=== PATIENT | female | born 1995 | race Caucasian/White ===

== ENCOUNTER → 2018-06-30 08:59 | Outpatient (CLI) | payer SELFPAY ==
[2018-06-30 08:58] VITALS: BMI 21.4
--- NOTE | 2018-06-30 09:03 | RAD_ITS ---
STUDY: X-RAY CHEST REASON FOR EXAM: Female, 22 years old. Bronchitis TECHNIQUE: PA and lateral views of the chest. COMPARISON: None. FINDINGS: The lungs are clear and expanded. There is no demonstrated pleural abnormality. Normal size heart. Normal mediastinum and mojgan. Normal visualized pulmonary arteries. Normal visualized aortic arch and descending thoracic aorta. Normal visualized thoracic spine. Normal visualized ribs, clavicles, and shoulders. There is no demonstrated abnormality of the visualized soft tissue structures of the upper abdomen. RAD/Chest PA and Lateral IMPRESSION: Normal x-ray examination of the chest. Electronically Signed: Emmanuel Chavez DO at 9:29 EDT Tel , Service support ,
== END ==
PROVIDERS: Family Provider Family Medicine; PCP Family Medicine; Referring Provider Physician Assistant Surgical; Visit Provider Physician Assistant Surgical
DX: J20.9 Acute bronchitis, unspecified (principal)
CPT/HCPCS: 71046

== ENCOUNTER → 2019-04-08 16:34 | Outpatient (CLI) | payer SELFPAY ==
[2019-04-08 16:17] VITALS: BMI 21.4
[2019-04-08 17:27] LABS: Absolute Neutrophil Count 5.6 X10^3/uL (2.0-7.7); Basophil# 0.04 X10^3/uL; Basophil% 0.4 % (0-1); Eosinophil# 0.34 X10^3/uL; Eosinophils% 3.6 % (0-5); Hematocrit 41.7 % (37-47); Hemoglobin 13.8 g/dL (12.0-15.0); Lymphocyte % 32.4 % (19-41); Mean Corp Hgb Conc 33.1 g/dL (32-36); Mean Corpuscular Hgb 29.5 pg (27.0-32.0); Mean Corpuscular Volume 89.1 fL (81-99); Mean Platelet Vol. 11.6 fl (6.2-12.0); Monocyte# 0.45 X10^3/uL; Monocyte% 4.7 % (0-10); NRBC Flagged by Analyzer 0 % (0-5); Neutrophil % 58.6 % (47-70); Platelet Count 210 K/mm3 (150-450); RBC Distribution Width CV 12.9 % (11.6-14.6); RBC Distribution Width SD 41.8 fl (35.1-43.9); Red Blood Count 4.68 M/mm3 (4.2-5.4); White Blood Count 9.6 K/mm3 (4.4-11.0)
== END ==
PROVIDERS: PCP Family Medicine; Referring Provider Family Medicine; Visit Provider Family Medicine
DX: K92.1 Melena (principal); R19.7 Diarrhea, unspecified
CPT/HCPCS: 36415; 85025

== ENCOUNTER → 2019-04-09 09:05 | Outpatient (CLI) | payer SELFPAY ==
[2019-04-08 16:17] VITALS: BMI 21.4
== END ==
PROVIDERS: PCP Family Medicine; Referring Provider Family Medicine; Visit Provider Family Medicine
DX: R19.7 Diarrhea, unspecified (principal)
CPT/HCPCS: 87506

== ENCOUNTER → 2020-09-05 13:59 | Outpatient (CLI) | payer SELFPAY ==
[2019-04-08 16:17] VITALS: BMI 21.4
[2020-09-05 17:00] LABS: Hematocrit 42.7 % (37-47); Hemoglobin 13.8 g/dL (12.0-15.0); Mean Corp Hgb Conc 32.3 g/dL (32-36); Mean Corpuscular Volume 89.7 fL (81-99); Platelet Count 232 K/mm3 (150-450); RBC Distribution Width CV 12.8 % (11.6-14.6); RBC Distribution Width SD 42.5 fl (35.1-43.9); Red Blood Count 4.76 M/mm3 (4.2-5.4); White Blood Count 8.9 K/mm3 (4.4-11.0)
[2020-09-05 17:11] LABS: hCG Titer Quant., Serum < 1 mIU/mL (1-3)
[2020-09-05 17:17] LABS: Estradiol 168.5 pg/mL; Follicle Stimulating Hormone 1.9 mIU/mL; Luteinizing Hormone 5.4 mIU/mL; Prolactin 16.5 ng/mL; T4 Free Direct 0.95 ng/dL (0.76-1.46); Thyroid Stim Hormone (TSH) 1.75 uIU/mL (0.358-3.74)
[2020-09-10 11:50] LABS: HPV Reflexed? NOT INDICATED
[2020-09-11 07:31] LABS: Testosterone Free 1.1 pg/mL (0.0-4.2)
== END ==
PROVIDERS: PCP Family Medicine; Visit Provider Obstetrics & Gynecology
DX: Z12.4 Encounter for screening for malignant neoplasm of cervix (principal); N93.9 Abnormal uterine and vaginal bleeding, unspecified
CPT/HCPCS: 36415; 82670; 83001; 83002; 84146; 84402; 84439; 84443; 84702; 85027; 88175; G0145

== ENCOUNTER 2021-03-02 08:21 | Day surgery (SDC) | payer OTHER, SELFPAY ==
[2021-03-02] VITALS (8 sets, daily range): BP systolic 101–125; BP diastolic 61–80; PULSE 61–92; RESP 16–18; TEMP 35.7–37.3; O2SAT 96–100; BMI 21.7
[2021-03-02] MEDS: Lactated Ringers 1,000 ML 15 ML IV (09:05)
[2021-03-02 09:11] LABS: Internal QC Validated? YES +Cl - CLEAR BKGD
[2021-03-02 09:12] LABS: Hematocrit 41.5 % (37-47); Hemoglobin 13.5 g/dL (12.0-15.0); Mean Corp Hgb Conc 32.5 g/dL (32-36); Mean Corpuscular Hgb 28.8 pg (27.0-32.0); Mean Corpuscular Volume 88.5 fL (81-99); Mean Platelet Vol. 10.8 fl (6.2-12.0); Platelet Count 204 K/mm3 (150-450); RBC Distribution Width SD 42.1 fl (35.1-43.9); Red Blood Count 4.69 M/mm3 (4.2-5.4); White Blood Count 6.1 K/mm3 (4.4-11.0)
[2021-03-02 09:13] LABS: Pregnancy, Urine Negative Negative
--- NOTE | 2021-03-02 09:26 | HP.PCM.OB_ITS ---
History and Physical Date of Admission: 03/02/21 Surgical History and Physical Date: 03/02/2021 Name: KALLI POWER Age: 25 Date of : 1995 Kalli Power, a 25 year old female 0 0 0 0 0, presents for Diagnostic laparoscopy, removal of right ovarian cyst on March 02, 2021 at . -- Kalli is here for diagnostic laparoscopy with right ovarian cystectomy on 03/02/21. MEDICATIONS HISTORY: Patient is also takin. No Meds ALLERGIES: No Known Drug Allergies Infections - mono Illnesses - none Accidents - None Hospitalizations - None Review of Systems: GENERAL - Denies fever, or chills SKIN - Denies skin changes EYES - Denies visual changes EARS - Denies difficulty hearing NOSE - Denies nasal congestion or bleeding MOUTH - Denies sore throat or difficulty swallowing NECK - Denies pain or swelling RESPIRATORY - Denies shortness of breath or wheezing CARDIOVASCULAR - Denies palpitations or chest pain GASTROINTESTINAL - Denies nausea, vomiting, diarrhea, constipation GENITOURINARY - Denies dysuria, frequency of urination, incontinence of urine MUSCULOSKELETAL - Denies joint or muscle pain NEUROLOGICAL - Denies localized numbness or weakness PSYCHIATRIC - Denies depression or anxiety ENDOCRINE - Denies heat or cold intolerance, weight loss or gain HEMATO-IMMUNOLOGIC - Denies excessive bleeding with cuts SOCIAL HISTORY: Alcohol Use - wine and RARELY Smoking - Never Diet - no special diet Exercise - active Employer - Illicit Drug Use - denies use of street drugs Sexual Activity - sexually inactive Residence - lives with parents Place of - [place] Hours Worked - 20 WK Control - Natural Family Planning and getting soon FAMILY HISTORY: MENSTRUAL HISTORY: LMP Known?- DefiniteAmount/Duration - 8-9 days, Regularity - heavy, Frequency - monthly days, LMP - 02/16/21, Age Onset Menarche - 11 PAST PREGNANCIES: Total Pregnancies - 0; Full Term Pregnancies - 0; Premature - 0; Abortions, Induced - 0; Abortions, Spontaneous - 0; Ectopics - 0; Multiple Births - 0; Living Children - 0 PHYSICAL EXAM BP- 118/68 Sitting, Left arm, regular cuff Temp- 97.9 Weight- 139.55925 lbs Height- 66 inch BMI:[id number] CONSTITUTIONAL - NAD, well nourished, and well developed SKIN - No rash, lesions, or ulcers HEENT - Normocephalic, PERRLA, EOMI NECK - No nodes, no nuchal rigidity and thyroid normal size and texture LYMPH NODES - Palpation of lymph nodes in neck and groins within normal limits ABDOMEN - Without hepatosplenomegaly, distention, masses, rebound, or guarding; normal bowel sounds; no hernias EXTREMITIES - No edema or calf tenderness NEUROLOGICAL - Cranial nerves II-XII grossly intact PSYCHIATRIC - A and O to time, place, person, mood and affect External Genital Vagina - non-tender without lesions Urethra/Urethral Meatus - non-tender Bladder - non-tender Vagina - vaginal khan are pink and moist without loss of rugae and no evidence of atrophy Cervix - without cervical motion tenderness and has normal size and features without evident lesions Uterus - 5-6 cm in size, mobile and nontender Adnexa - clear without masses or tenderness ASSESSMENT/PLAN: 1. Benign Neoplasm Of Unspecified Ovary Patient with right ovarian cyst, suspicious for dermoid 5 to 6 cm in size Educated patient on findings, risk benefits alternatives. Desires surgical removal Educated patient on teratomas, discussed risk for larger incision for removal 2. Encounter For Other Preprocedural Examination Patient for diagnostic laparoscopy, removal of right ovarian cyst Educated patient on risk benefits alternatives, discussed risk for oophorectomy, discussed risk for larger incision for removal. patient stated understanding as to proceed. All questions were answered and consent was signed Patient takes no medications. Educated on lifting restrictions and exercise after procedure
--- NOTE | 2021-03-02 09:40 | OV_PTH ---
PATIENT: JAI MORGAN LOC: [facility] U#:[id number] AGE/SX: 25/F ROOM: RE03/02/[address]: Dr. Ealdio Morgan MD : 1995 BED: DIS: 03/02/2021 SPEC #: [id number] RECD: 03/02/21 11:52 STATUS: THIERRY JOHAN #: [id number] JAD: 03/02/21 09:[address]: Eladio Morgan DEPT: SURGICAL PATHOLOGY RECD BY: Alexandra Harrison ENTERED: 03/02/21 13:34 SP TYPE: OVARY OTHR DR: Dr. Fam Solares, Tissues: Right ovary Procedures: Surgery Specimen Level V HEADER OPERATION: Diagnostic laparoscopy, ovarian cystectomy, oophorectomy PRE-OP DIAGNOSIS: Benign neoplasm of ovary TISSUE SUBMITTED: Right ovary and cyst MICROSCOPIC DIAGNOSIS Right ovary with cystic mass, oophorectomy: Mature cystic teratoma (dermoid cyst). AM:tony 03/03/2021 MICROSCOPIC DESCRIPTION Slides are reviewed. GROSS DESCRIPTION Received in fixative is one container labeled with the patient's name and designated right ovary and cyst. The specimen consists of smooth, glistening, pink-goddard cystic ovary measuring 5.5 x 4 x 2 cm and containing proteinaceous applesauce-like material and hair. The external surface is smooth and glistening. No papillary projections or excrescences are identified. The external surface is inked and the specimen serially sectioned to reveal sticky yellow substance in the lumen. The wall averages 0.2 cm in thickness. No distinct nodularities are identified. Holistic Specialist sections are submitted in four cassettes. / AM:tony 03/02/21 TC:1 [facility]: [id number]
--- NOTE | 2021-03-02 10:55 | PCM.DC ---
Discharge Instructions Diet Discharge Diet: No restrictions Activity Discharge Activity: Return to Normal Activity, May Drive, May Shower and - (No tub baths for 2 weeks) May resume sexual activity in: 4-6 weeks Lifting Restrictions: No lifting over 25 pounds for 2 to 3 weeks Dressing / Incision Call your doctor if your incision/area has: Continuous Slow Oozing and Foul Smelling Discharge Call your doctor if you observe: Fever of 101 or Higher, Shortness of breath and Chest pain Follow Up Care Please Follow Up With: Eladio Harris MD When: 2 weeks postoperatively Test Results: Test results from this visit will be discussed in further detail at your follow-up appointment, if applicable. Discharge Plan Admission Attending Provider: Eladio Harris Primary Care Provider: Fam Solares Discharge Orders/Prescriptions Prescriptions: New oxycodone 5 mg Tablet 5 mg PO Q6H PRN PRN (Reason: Pain Score 6-10/10) 4 Days Qty: 16 RF: 0 Referrals / Follow Up: Fam Solares, DO [Primary Care Provider] - Disposition Disposition (needs filled in before D/C Order can be placed): Home, Self Care
--- NOTE | 2021-03-02 10:56 | PCM.OPRPT ---
Report of Operation Date of Procedure: 03/02/21 Pre-Operative Diagnosis: Right ovarian cyst Post-Operative Diagnosis: Right ovarian cyst Surgery/Procedure Performed:: Diagnostic laparoscopy, right oophorectomy, removal of right ovarian cyst Description of Surgical Findings:: Surgeon: Eladio Harris MD Anesthesia: General EBL: 25 cc Urine output: 1000 cc IV fluids: 1100 cc Complications: None Specimen: Right ovary and right ovarian cyst Findings: Right ovary with 5 to 6 cm solid ovarian cyst that included the entire right ovary. Cystectomy could not be performed, right ovary needed to be removed. Suspicious for dermoid cyst. Left ovary within normal limits. Bilateral fallopian tubes within normal limits. Normal uterus. Consent: Patient with right ovarian cyst suspicious for dermoid elects for diagnostic laparoscopy right ovarian cystectomy. Patient understands the risk of the procedure include but are not limited to visceral or vascular injury, prolonged hospitalization, blood loss and need for transfusion, reoperation, discussed risk for oophorectomy preoperatively, discussed risks for larger incision. Patient state understanding and wished to proceed. All questions were answered and consent was signed. Procedure: Patient was brought back to the OR where general anesthesia was found to be adequate. Patient was prepared and draped in a dorsal lithotomy position with yellowfin stirrups. A weighted speculum was placed in the posterior aspect of the vagina. Cervical dilators were used to dilate the cervix. Uterine manipulator was placed. Varies needle was inserted at the umbilicus, water safety test was passed, abdomen was insufflated. 5 mm midline supraumbilical incision was made and trocar was inserted under direct visualization. Laparoscope was inserted and above findings were noted. Bilateral lower quadrant 5 mm trochars were inserted under direct visualization. Using the LigaSure device and atraumatic grasper the right fallopian tube was identified out to the fimbriae and using LigaSure device the right IP ligament was cut and cauterized. Mesosalpinx was cut and cauterized, in order to free the right fallopian tube. Right utero-ovarian ligament was cut and cauterized. 5 mm midline supraumbilical trocar was removed and incision and placement of 12 mm trocar under direct visualization was performed. Endo Catch bag was inserted, right cyst and ovary were placed into Endo Catch bag. Trocar and Endo Catch bag were removed from abdominal cavity, right ovary and right cyst were removed from abdominal cavity and sent to pathology. Good hemostasis was noted. Trochars were removed under direct visualization and abdomen was desufflated. 12 mm incision fascia was closed with 0 Vicryl in a continuous running fashion. All trocar sites skin was closed in a subcuticular fashion. Good hemostasis was noted. All counts were correct x2. Patient tolerated the procedure well and was brought to recovery in stable condition. hotel maintenance engineer: Christina Franco
[2021-03-02] MEDS: oxyCODONE 5 MG Tablet PO (12:49)
== END 2021-03-02 23:59 | disposition home or self-care (01) ==
LOC: SDC 08:32 → AC 08:34
PROVIDERS: Anesthesiology; PCP Family Medicine; Referring Provider Obstetrics & Gynecology; Visit Provider Obstetrics & Gynecology
PROC: (CPT 49320; principal; 2021-03-02 09:25)
DX: D27.0 Benign neoplasm of right ovary (principal); Z20.822 Contact with and (suspected) exposure to COVID-19
CPT/HCPCS: 58661; 00840; 81025; 85027; 87426; 88305; 88307; J7120; J2405

== ENCOUNTER → 2021-11-14 | Outpatient (CLI) | payer OTHER, SELFPAY ==
[2021-11-14 11:56] LABS: Absolute Lymphocyte Count 1.84 X10^3/uL (0.83-4.51); Absolute Neutrophil Count 7.6 X10^3/uL (2.0-7.7); Basophil# 0.03 X10^3/uL; Basophil% 0.3 % (0-1); Eosinophil# 0.19 X10^3/uL; Eosinophils% 1.8 % (0-5); Hematocrit 41.4 % (37-47); Hemoglobin 13.9 g/dL (12.0-15.0); Lymphocyte # 1.84 X10^3/ul (0.83-4.51); Lymphocyte % 17.9 % (19-41); Mean Corp Hgb Conc 33.6 g/dL (32-36); Mean Corpuscular Hgb 29.5 pg (27.0-32.0); Mean Corpuscular Volume 87.9 fL (81-99); Mean Platelet Vol. 11.3 fl (6.2-12.0); Monocyte# 0.47 X10^3/uL; Monocyte% 4.6 % (0-10); NRBC Flagged by Analyzer 0 % (0-5); Neutrophil # 7.63 X10^3/uL (2.7-7.7); Neutrophil % 74.2 % (47-70); Platelet Count 216 K/mm3 (150-450); RBC Distribution Width CV 12.7 % (11.6-14.6); RBC Distribution Width SD 41.1 fl (35.1-43.9); Red Blood Count 4.71 M/mm3 (4.2-5.4); White Blood Count 10.3 K/mm3 (4.4-11.0)
[2021-11-14 12:03] LABS: Protein, Urine (Random) < 6.0 mg/dL (<11.9); Protein:Creat Ratio 158 mg/g CRE (0-200)
[2021-11-14 12:04] LABS: AST(SGOT) 10 U/L (15-37); Alanine Aminotransfer ALT/SGPT 17 U/L (13-56); Albumin, Serum 3.7 g/dL (3.2-5.0); Alkaline Phosphatase 48 U/L (45-117); Anion Gap 8 (5-15); BUN 10 mg/dL (7-18); BUN/Creat Ratio 16.8 RATIO (10-20); Calcium,Total 8.8 mg/dL (8.5-10.1); Chloride 103 mmol/L (98-107); EST Glomerular Filtration Rate 132 mL/min (>60); Est Glom Filt Rate - Afr Amer 160 mL/min (>60); Globulin 3.8 g/dL (2.2-4.2); Glucose 71 mg/dL (74-106); LDH 140 U/L (84-246); Potassium 3.9 mmol/L (3.5-5.1); Protein, Total 7.5 g/dL (6.4-8.2); Sodium Level 139 mmol/L (136-145)
[2021-11-15 22:07] LABS: Chlamydia By Nucleic Acid AMP Negative (Negative)
[2021-11-16 08:26] LABS: Gonococcus By Nucleic Acid AMP Negative (Negative)
== END | disposition home or self-care (01) ==
LOC: WOBLAB 10:52
PROVIDERS: PCP Family Medicine; Visit Provider Obstetrics & Gynecology
DX: Z34.81 Encounter for supervision of other normal pregnancy, first trimester (principal)
CPT/HCPCS: 36415; 80053; 82570; 83615; 84156; 85025; 87086; 87088; 87491; 87591

== ENCOUNTER → 2021-12-12 | Outpatient (CLI) | payer OTHER, SELFPAY ==
[2021-12-12 11:58] LABS: HIV - WCH Non-Reactive (Nonreactive); Hepatitis B Surface Antigen Non-Reactive (Nonreactive); Hepatitis C Antibody Non-Reactive (Nonreactive); Rubella IgG Reactive (Nonreactive); Syphilis Antibodies Non-reactive
[2021-12-13 08:58] LABS: V-Zoster IgG (Immunity) < 135 index (Immune >165)
== END | disposition home or self-care (01) ==
PROVIDERS: PCP Family Medicine; Visit Provider Obstetrics & Gynecology
DX: Z34.82 Encounter for supervision of other normal pregnancy, second trimester (principal)
CPT/HCPCS: 36415; 86703; 86762; 86780; 86787; 86803; 87340

== ENCOUNTER → 2022-03-06 | Outpatient (CLI) | payer OTHER, SELFPAY ==
[2022-03-06 15:24] LABS: Absolute Lymphocyte Count 2.09 X10^3/uL (0.83-4.51); Absolute Neutrophil Count 10.3 X10^3/uL (2.0-7.7); Basophil# 0.04 X10^3/uL; Basophil% 0.3 % (0-1); Eosinophil# 0.11 X10^3/uL; Eosinophils% 0.8 % (0-5); Hematocrit 36.9 % (37-47); Hemoglobin 11.9 g/dL (12.0-15.0); Lymphocyte # 2.09 X10^3/ul (0.83-4.51); Mean Corp Hgb Conc 32.2 g/dL (32-36); Mean Corpuscular Hgb 29.5 pg (27.0-32.0); Mean Corpuscular Volume 91.6 fL (81-99); Monocyte# 0.48 X10^3/uL; Monocyte% 3.7 % (0-10); NRBC Flagged by Analyzer 0 % (0-5); Neutrophil # 10.32 X10^3/uL (2.7-7.7); Neutrophil % 78.7 % (47-70); Platelet Count 215 K/mm3 (150-450); RBC Distribution Width CV 12.9 % (11.6-14.6); RBC Distribution Width SD 42.6 fl (35.1-43.9); Red Blood Count 4.03 M/mm3 (4.2-5.4); White Blood Count 13.1 K/mm3 (4.4-11.0)
[2022-03-06 15:52] LABS: Glucose Challenge Gest 1H 50g 124 mg/dL (70-140)
== END | disposition home or self-care (01) ==
PROVIDERS: PCP Family Medicine; Visit Provider Obstetrics & Gynecology
DX: Z34.82 Encounter for supervision of other normal pregnancy, second trimester (principal)
CPT/HCPCS: 36415; 82950; 85025

== ENCOUNTER → 2022-04-16 | Outpatient (CLI) | payer OTHER, SELFPAY ==
[2022-04-16 11:21] LABS: Absolute Lymphocyte Count 1.45 X10^3/uL (0.83-4.51); Absolute Neutrophil Count 7.6 X10^3/uL (2.0-7.7); Basophil# 0.01 X10^3/uL; Basophil% 0.1 % (0-1); Eosinophil# 0.05 X10^3/uL; Eosinophils% 0.5 % (0-5); Hematocrit 34.4 % (37-47); Lymphocyte # 1.45 X10^3/ul (0.83-4.51); Lymphocyte % 15.2 % (19-41); Mean Corpuscular Hgb 29.5 pg (27.0-32.0); Mean Corpuscular Volume 92.2 fL (81-99); Mean Platelet Vol. 11.1 fl (6.2-12.0); Monocyte% 4.2 % (0-10); NRBC Flagged by Analyzer 0 % (0-5); Neutrophil # 7.59 X10^3/uL (2.7-7.7); Neutrophil % 79.3 % (47-70); Platelet Count 202 K/mm3 (150-450); RBC Distribution Width CV 12.8 % (11.6-14.6); RBC Distribution Width SD 42.7 fl (35.1-43.9); Red Blood Count 3.73 M/mm3 (4.2-5.4); White Blood Count 9.6 K/mm3 (4.4-11.0)
[2022-04-16 11:28] LABS: Protein, Urine (Random) 10.5 mg/dL (<11.9); Protein:Creat Ratio 261 mg/g CRE (0-200)
[2022-04-16 11:30] LABS: ALB/GLOB Ratio 0.7 RATIO (0.9-2.4); AST(SGOT) 11 U/L (15-37); Alanine Aminotransfer ALT/SGPT 14 U/L (13-56); Albumin, Serum 2.8 g/dL (3.2-5.0); Alkaline Phosphatase 111 U/L (45-117); Anion Gap 7 (5-15); BUN 7 mg/dL (7-18); BUN/Creat Ratio 13.3 RATIO (10-20); Calcium,Total 8.6 mg/dL (8.5-10.1); Chloride 106 mmol/L (98-107); Creatinine, Serum 0.53 mg/dL (0.55-1.02); EST Glomerular Filtration Rate 152 mL/min (>60); Est Glom Filt Rate - Afr Amer 183 mL/min (>60); Globulin 4.1 g/dL (2.2-4.2); Glucose 81 mg/dL (74-106); LDH 148 U/L (84-246); Potassium 3.9 mmol/L (3.5-5.1); Protein, Total 6.9 g/dL (6.4-8.2); Sodium Level 140 mmol/L (136-145)
== END | disposition home or self-care (01) ==
LOC: WOBLAB 10:25
PROVIDERS: PCP Family Medicine; Visit Provider Student in an Organized Health Care Education/Training Program
DX: Z34.83 Encounter for supervision of other normal pregnancy, third trimester (principal)
CPT/HCPCS: 36415; 80053; 82570; 83615; 84156; 85025; 87086; 87088

== ENCOUNTER → 2022-05-15 | Outpatient (CLI) | payer OTHER, SELFPAY ==
[2022-05-15 10:28] LABS: Absolute Lymphocyte Count 1.65 X10^3/uL (0.83-4.51); Absolute Neutrophil Count 7.6 X10^3/uL (2.0-7.7); Basophil# 0.03 X10^3/uL; Basophil% 0.3 % (0-1); Eosinophil# 0.08 X10^3/uL; Eosinophils% 0.8 % (0-5); Hematocrit 35.3 % (37-47); Hemoglobin 11.1 g/dL (12.0-15.0); Lymphocyte # 1.65 X10^3/ul (0.83-4.51); Lymphocyte % 16.7 % (19-41); Mean Corp Hgb Conc 31.4 g/dL (32-36); Mean Corpuscular Hgb 28.7 pg (27.0-32.0); Mean Corpuscular Volume 91.2 fL (81-99); Mean Platelet Vol. 11.4 fl (6.2-12.0); Monocyte# 0.44 X10^3/uL; Monocyte% 4.4 % (0-10); NRBC Flagged by Analyzer 0 % (0-5); Neutrophil # 7.62 X10^3/uL (2.7-7.7); Neutrophil % 77.1 % (47-70); Platelet Count 216 K/mm3 (150-450); RBC Distribution Width CV 13.3 % (11.6-14.6); RBC Distribution Width SD 43.8 fl (35.1-43.9); Red Blood Count 3.87 M/mm3 (4.2-5.4); White Blood Count 9.9 K/mm3 (4.4-11.0)
[2022-05-15 10:52] LABS: Syphilis Antibodies Non-reactive
== END | disposition home or self-care (01) ==
LOC: WOBLAB 09:01
PROVIDERS: PCP Family Medicine; Visit Provider Obstetrics & Gynecology
DX: Z34.83 Encounter for supervision of other normal pregnancy, third trimester (principal); Z36.85 Encounter for antenatal screening for Streptococcus B
CPT/HCPCS: 36415; 85025; 86780; 87081

== ENCOUNTER 2022-06-16 20:50 | Inpatient (IN) | payer OTHER, SELFPAY ==
[2022-06-16 20:33] VITALS: BP 137/83; PULSE 85; TEMP 36.9; O2SAT 98
[2022-06-16 20:37] VITALS: BMI 28.4
[2022-06-16] MEDS: 0.9% Saline Lock 10 ML Syringe IV (21:10)
[2022-06-16 21:32] LABS: Absolute Lymphocyte Count 2.36 X10^3/uL (0.83-4.51); Absolute Neutrophil Count 9.8 X10^3/uL (2.0-7.7); Basophil# 0.03 X10^3/uL; Basophil% 0.2 % (0-1); Eosinophil# 0.06 X10^3/uL; Eosinophils% 0.5 % (0-5); Hematocrit 35.3 % (37-47); Hemoglobin 11.9 g/dL (12.0-15.0); Lymphocyte # 2.36 X10^3/ul (0.83-4.51); Lymphocyte % 18.3 % (19-41); Mean Corp Hgb Conc 33.7 g/dL (32-36); Mean Corpuscular Hgb 29.6 pg (27.0-32.0); Mean Corpuscular Volume 87.8 fL (81-99); Mean Platelet Vol. 11.3 fl (6.2-12.0); Monocyte# 0.57 X10^3/uL; Monocyte% 4.4 % (0-10); NRBC Flagged by Analyzer 0 % (0-5); Neutrophil % 76.1 % (47-70); Platelet Count 184 K/mm3 (150-450); RBC Distribution Width CV 13.9 % (11.6-14.6); RBC Distribution Width SD 44.2 fl (35.1-43.9); Red Blood Count 4.02 M/mm3 (4.2-5.4); White Blood Count 12.9 K/mm3 (4.4-11.0)
[2022-06-16 21:46] VITALS: BP 128/85; PULSE 77; TEMP 37
[2022-06-16 22:05] LABS: Syphilis Antibodies Non-reactive
[2022-06-16 22:51] VITALS: BP 119/79; PULSE 68; PULSE 71; O2SAT 98
[2022-06-16 22:55] VITALS: TEMP 37.2
[2022-06-17] VITALS (34 sets, daily range): BP systolic 97–136; BP diastolic 55–92; PULSE 64–141; RESP 16; TEMP 36.3–37.4; O2SAT 89–100
[2022-06-17] MEDS: 0.9% Saline Lock 10 ML Syringe IV (04:35)
[2022-06-17] MEDS: Lactated Ringers 1,000 ML 50 ML IV (04:38)
[2022-06-17] MEDS: Oxytocin 15 Units/NS 250ml 15 UNITS/250 ML IV.SOLN 2 UNITS IV (04:41)
--- NOTE | 2022-06-17 08:00 | HP.PCM.OB_ITS ---
History and Physical Date of Admission: 06/16/22 HPI: 26-year-old G1, P0 at 40/5 weeks, MAURICIO 06/12/2022 by LMP, admitted for rupture of membranes. Patient had rupture membranes on Saturday at around 1600. Presented to labor and delivery with contractions. Denies vaginal bleeding. Reports movement. Denies headache or vision changes, chest pain or shortness of breath, nausea or vomiting, diarrhea constipation, fevers or chills. complicated by: Back skin lesion for which she had dermatology follow- up. 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 Right salpingectomy and ovarian cystectomy in February 2021 Medications: 1. vitamin Allergies: No known drug allergies Family history: Noncontributory, no history of blood clots or bleeding disorders Social history: Denies tobacco, alcohol, drug use Review of system: Negative otherwise stated above Physical exam: Temp 98.4 ?F, heart rate 80, blood pressure 131/84, pulse ox 97% on room air General: No acute distress HEENT: Normocephalic/atraumatic, PERRLA Cardiorespiratory: No increased effort Abdomen: Soft, nontender, gravid Extremities: Minimal edema Neurologic: Cranial nerves II through XII grossly intact, no focal sensory deficits Musculoskeletal: Moves all extremities equally Cervical exam: 3 cm per RN FHR: 130/mod stoney/+accel/no decel [place]: q3-5 Assessment/plan: 26-year-old G1, P0 at 40/5 weeks, MAURICIO 06/12/2022 by LMP, admitted for rupture of membranes. Uncomplicated . ?GBS negative ? Patient was admitted for prelabor rupture of membranes. ?Patient was monitored for 12 hours post rupture of membranes, no cervical change was noted. Labor was then augmented with Pitocin. We will continue to titrate Pitocin as tolerated.
[2022-06-17] MEDS: LACTATED RINGERS 500 ML 999 ML IV (09:16)
[2022-06-17] MEDS: fentaNYL-bupivacaine (epidural) 100 ML BAG EPIDURAL ×2 (09:45→14:09)
[2022-06-17] MEDS: Oxytocin 10 UNITS/ML Vial IM (14:45)
[2022-06-17] MEDS: Oxytocin 15 Units/NS 250ml 15 UNITS/250 ML IV.SOLN 83 UNITS IV (14:45)
--- NOTE | 2022-06-17 15:01 | EX.PCM.OBRPT ---
Maternal Data Information Final MAURICIO: 06/12/22 Vaginal Delivery Operative Information Date of Procedure: 06/17/22 Pre-Operative Diagnosis: [place] intrauterine Post-Operative Diagnosis: [place] intrauterine Surgery / Procedure Performed: Spontaneous Vaginal Delivery Estimated Blood Loss: 350cc Findings Description of Procedure: Spontaneous vaginal delivery of viable infant male. No nuchal cord. Baby to mom. Cord clamped and cut. Spontaneous delivery of placenta. Second-degree laceration repaired in usual fashion. Hemostatic. Infant A Gender: Male (1 minute): 8 (5 minute): 9 Complication Complications: None
[2022-06-17] MEDS: Ondansetron 4 MG/2 ML Vial IV (15:13)
[2022-06-17] MEDS: Acetaminophen 500 MG Tablet 1000 MG PO (16:27)
[2022-06-18 05:00] VITALS: BP 102/52; PULSE 74; RESP 16; TEMP 36.6; O2SAT 97
[2022-06-18] MEDS: Ibuprofen 600 MG Tablet PO ×2 (05:03→13:28)
--- NOTE | 2022-06-18 06:43 | PCM.DC.BLA ---
Discharge Summary Date of Admission: 06/16/22 Date of Discharge: 06/18/22 Summary: Patient arrived on 06/16/2022 with spontaneous rupture of membranes. Subsequently delivered vaginally on 06/17/2022. Discharged home on 06/18/2022. Meaningful Use Info Meaningful Use Diagnoses (Choose all that apply): None applicable Discharge Plan Admission Admit Date/Time: 06/16/22 20:50 Primary Reason for Your Visit: Spontaneous rupture membranes Attending Provider: Melissa Harris Primary Care Provider: Fam Solares Instructions Additional Instructions / Restrictions: Regular diet. Weightbearing as tolerated. No intercourse for 4 to 6 weeks. Okay to shower. Call if fevers, chills, chest pain, shortness of breath. Follow-up 4 to 6 weeks Discharge Orders/Prescriptions Prescriptions: No Action 1 mg Tablet 1 tab PO DAILY Referrals / Follow Up: Fam Solares DO [Primary Care Provider] - Disposition Disposition (needs filled in before D/C Order can be placed): Home, Self Care
--- NOTE | 2022-06-18 06:44 | PCM.PN.OB ---
Subjective Subjective No overnight complaints Objective Data Objective Data Vital Signs: Vital Signs Temp Pulse Resp BP Pulse Ox O2 Del Method 97.9 F 74 16 102/52 L 97 Room Air 06/18/22 05:00 06/18/22 05:00 06/18/22 05:00 06/18/22 05:00 06/18/22 05:00 06/18/22 05:00 Oxygen Delivery Method Room Air Weight: 181 lb 7.047 oz Body Mass Index (BMI) 28.4 Intake & Output: Intake and Output for Last 24 Hours 06/16/22 06/17/22 06/18/22 23:59 23:59 23:59 Intake Total 1438.31 / 1438.31 Output Total 850 / 850 400 / 400 Balance 588.31 / 588.31 -400 / -400 Lab / Micro Data Result Diagrams: 06/16/22 21:10 Physical Exam Const alert, oriented x3, no apparent distress, average body habitus, healthy appearing and well nourished HEENT normocephalic and moist oral mucous membranes Eyes PERRL Neck full ROM Resp normal respiratory effort, no retractions and no use of accessory muscles GI GI Narrative: Soft, nontender, uterus firm and below umbilicus Extremity normal to inspection and full ROM Neuro moves all extremities and no focal motor deficits Psych mental status grossly normal, affect normal, speech normal and activity/motor behavior normal Assessment & Plan (1) Vaginal delivery: PLAN: day 1. Breast-feeding. Pain well controlled. 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
[2022-06-18 07:50] VITALS: BP 102/65; PULSE 91; RESP 16; TEMP 36.4; O2SAT 95
[2022-06-18 13:00] VITALS: BP 101/63; PULSE 89; RESP 14; TEMP 36.4; O2SAT 97
== END 2022-06-18 16:05 | disposition home or self-care (01) | DRG 807 ==
LOC: WPOUT 20:51 → WP 20:51
PROVIDERS: Admitting Provider Student in an Organized Health Care Education/Training Program; PCP Physician Assistant; Referring Provider Student in an Organized Health Care Education/Training Program; Visit Provider Student in an Organized Health Care Education/Training Program
DX: O48.0 Post-term pregnancy (principal); Z37.0 Single live birth; O70.1 Second degree perineal laceration during delivery; Z3A.40 40 weeks gestation of pregnancy
CPT/HCPCS: 59025; 59050; 85025; 86780; 86850; 86900; 86901; 99221; J7120; A4216; G0378; J2405

== ENCOUNTER → 2024-01-06 | Outpatient (CLI) | payer OTHER, SELFPAY ==
[2024-01-07 22:06] LABS: Chlamydia By Nucleic Acid AMP Negative (Negative); Gonococcus By Nucleic Acid AMP Negative (Negative)
== END | disposition home or self-care (01) ==
LOC: LABSPEC 12:38
PROVIDERS: PCP Physician Assistant; Referring Provider Obstetrics & Gynecology; Visit Provider Obstetrics & Gynecology
DX: Z34.90 Encounter for supervision of normal pregnancy, unspecified, unspecified trimester (principal)
CPT/HCPCS: 87086; 87088; 87491; 87591

== ENCOUNTER → 2024-03-02 | Outpatient (CLI) | payer SELFPAY ==
[2024-03-02 10:50] LABS: Absolute Lymphocyte Count 1.46 X10^3/uL (0.83-4.51); Absolute Neutrophil Count 7.8 X10^3/uL (2.0-7.7); Basophil# 0.03 X10^3/uL; Basophil% 0.3 % (0-1); Eosinophil# 0.15 X10^3/uL; Eosinophils% 1.5 % (0-5); Lymphocyte # 1.46 X10^3/ul (0.83-4.51); Lymphocyte % 14.9 % (19-41); Mean Corp Hgb Conc 32.6 g/dL (32-36); Mean Corpuscular Hgb 28.9 pg (27.0-32.0); Mean Corpuscular Volume 88.7 fL (81-99); Mean Platelet Vol. 11.3 fl (6.2-12.0); Monocyte# 0.37 X10^3/uL; Monocyte% 3.8 % (0-10); NRBC Flagged by Analyzer 0 % (0-5); Neutrophil # 7.77 X10^3/uL (2.7-7.7); Platelet Count 249 K/mm3 (150-450); RBC Distribution Width CV 13.6 % (11.6-14.6); RBC Distribution Width SD 44.1 fl (35.1-43.9); Red Blood Count 4.85 M/mm3 (4.2-5.4); White Blood Count 9.8 K/mm3 (4.4-11.0)
[2024-03-02 12:10] LABS: HIV - WCH Non-Reactive (Nonreactive); Hepatitis B Surface Antigen Non-Reactive (Nonreactive); Hepatitis C Antibody Non-Reactive (Nonreactive); Rubella IgG Reactive (Nonreactive); Syphilis Antibodies Non-reactive
== END | disposition home or self-care (01) ==
PROVIDERS: Obstetrics & Gynecology; PCP Physician Assistant; Referring Provider Nurse Practitioner Women's Health; Visit Provider Nurse Practitioner Women's Health
DX: Z34.90 Encounter for supervision of normal pregnancy, unspecified, unspecified trimester (principal)
CPT/HCPCS: 36415; 85025; 86703; 86762; 86780; 86803; 86850; 86900; 86901; 87340

== ENCOUNTER → 2024-03-24 | Outpatient (CLI) | payer SELFPAY ==
--- NOTE | 2024-03-24 15:18 | US_ITS ---
PROCEDURE: OB ANATOMY W/ TRANSVAGINAL REASON FOR EXAM: Anatomy scan. COMPARISON: None. FINDINGS Number: 1 Position: Breech Placental Position: Anterior low-lying. Placental Abnormalities: None. DIMENSIONS: Biparietal Diameter: 4.6 cm/20 weeks, 0 days: 49% Head Circumference: 17.6 cm: 20 weeks: 1 day: 48%/20 weeks, 6 days: 90% Abdominal Circumference: 14.4 cm: 19 weeks: 5 days: 35%/ Femur Length: 3.2 cm: 20 weeks: 0 days: 44%/ ESTIMATED WEIGHT: ESTIMATED WEIGHT PERCENTILE (24+ weeks): ESTIMATED GESTATIONAL AGE: Baseline: 20 weeks 0 days By Ultrasound: 20 weeks 0 days: Estimated weight is 318 g plus/-48 percentile ESTIMATED DATE OF DELIVERY: Baseline: August 11, 2024 By Ultrasound: August 11, 2024 BIOPHYSICAL ASSESSMENT: Amniotic Fluid Volume: 3.9 cm Amniotic Fluid Index: Within normal limits (8-24 cm normal range) Cardiac Motion: 150 beats per minute (average) Trunk and Limb Motion: Present. MATERNAL ANATOMY: Adnexa: Neither maternal ovary is successfully identified. Cervical Length (if measured): 3.3 cm US/OB Anatomy w/ Transvaginal IMPRESSION: Single live intrauterine gestation with a mean gestational age of 20 weeks. Reading Location: [place] [id number]
== END | disposition home or self-care (01) ==
LOC: US 15:15
PROVIDERS: PCP Physician Assistant; Referring Provider Obstetrics & Gynecology; Visit Provider Obstetrics & Gynecology
DX: Z34.92 Encounter for supervision of normal pregnancy, unspecified, second trimester (principal)
CPT/HCPCS: 76805; 76817

== ENCOUNTER → 2024-05-26 | Outpatient (CLI) | payer SELFPAY ==
[2024-05-26 17:23] LABS: Absolute Lymphocyte Count 1.66 X10^3/uL (0.83-4.51); Absolute Neutrophil Count 9.3 X10^3/uL (2.0-7.7); Basophil# 0.03 X10^3/uL; Basophil% 0.3 % (0-1); Eosinophil# 0.11 X10^3/uL; Eosinophils% 0.9 % (0-5); Hematocrit 33.6 % (37-47); Hemoglobin 11.1 g/dL (12.0-15.0); Lymphocyte # 1.66 X10^3/ul (0.83-4.51); Lymphocyte % 14.3 % (19-41); Mean Corpuscular Hgb 29.8 pg (27.0-32.0); Mean Corpuscular Volume 90.3 fL (81-99); Mean Platelet Vol. 11.1 fl (6.2-12.0); Monocyte# 0.46 X10^3/uL; NRBC Flagged by Analyzer 0 % (0-5); Neutrophil # 9.31 X10^3/uL (2.7-7.7); Neutrophil % 80.1 % (47-70); Platelet Count 218 K/mm3 (150-450); RBC Distribution Width CV 13.7 % (11.6-14.6); RBC Distribution Width SD 45.1 fl (35.1-43.9); Red Blood Count 3.72 M/mm3 (4.2-5.4); White Blood Count 11.6 K/mm3 (4.4-11.0)
[2024-05-26 18:23] LABS: Glucose Challenge Gest 1H 50g 112 mg/dL (70-140); HIV Nonreactive (Nonreactive); Syphilis Antibodies Nonreactive (Nonreactive)
== END | disposition home or self-care (01) ==
LOC: BWCLAB 13:24
PROVIDERS: PCP Physician Assistant; Referring Provider Advanced Practice Midwife; Visit Provider Advanced Practice Midwife
DX: Z34.82 Encounter for supervision of other normal pregnancy, second trimester (principal)
CPT/HCPCS: 36415; 82950; 85025; 86703; 86780

== ENCOUNTER 2024-06-14 16:30 | Outpatient (CLI) | payer SELFPAY ==
[2024-06-14 16:41] VITALS: RESP 16; TEMP 37.3
[2024-06-14 16:42] VITALS: BMI 27.1
[2024-06-14 16:47] VITALS: BP 128/75; PULSE 95
[2024-06-14 17:06] LABS: Color, Urine Yellow (Yellow); Glucose, Dipstick Normal (Normal); Ketone-Dipstick 50 mg/dl (Negative); Leukocyte Esterase-Dipstick Negative /ul (Negative); Nitrite-Dipstick Negative (Negative); Occult Blood-Urine Negative /ul (Negative); Protein-Dipstick Negative (Negative); Specific Gravity, Urine 1.005 (1.002-1.030); Urine Bilirubin Dipstick Negative (Negative); Urine Clarity Clear (Clear); Urine Urobilinogen Normal (Normal)
[2024-06-14 17:28] LABS: Absolute Lymphocyte Count 1.89 X10^3/uL (0.83-4.51); Absolute Neutrophil Count 11.7 X10^3/uL (2.0-7.7); Basophil# 0.03 X10^3/uL; Basophil% 0.2 % (0-1); Eosinophils% 0.7 % (0-5); Hematocrit 31.7 % (37-47); Hemoglobin 10.9 g/dL (12.0-15.0); Lymphocyte # 1.89 X10^3/ul (0.83-4.51); Lymphocyte % 13.2 % (19-41); Mean Corp Hgb Conc 34.4 g/dL (32-36); Mean Corpuscular Volume 87.3 fL (81-99); Mean Platelet Vol. 10.7 fl (6.2-12.0); Monocyte# 0.49 X10^3/uL; Monocyte% 3.4 % (0-10); NRBC Flagged by Analyzer 0 % (0-5); Neutrophil # 11.68 X10^3/uL (2.7-7.7); Neutrophil % 81.9 % (47-70); Platelet Count 194 K/mm3 (150-450); RBC Distribution Width CV 13.5 % (11.6-14.6); RBC Distribution Width SD 42.3 fl (35.1-43.9); Red Blood Count 3.63 M/mm3 (4.2-5.4); White Blood Count 14.3 K/mm3 (4.4-11.0)
[2024-06-14] MEDS: LACTATED RINGERS 500 ML 999 ML IV (17:45)
--- NOTE | 2024-06-14 18:15 | OB.TRI.PN ---
Progress Notes Date of Service: 06/14/24 Progress Note: Patient presents for triage evaluation secondary to right sided abdominal pain FHT: 140 Moderate variability reactive no decelerations category I tracing [place]: irregular and mild Contractions Assessment and plan: urine and cbc unremarkable, but WBCs are slightly elevated from 3 weeks ago, Reactive NST, reassuring status patient to ER for evalutaiton. Dr Bro agrees with plan of care. See problem list details for additional plan information. Laboratory Studies: Laboratory Tests 06/14/24 06/14/24 Range/Units 17:20 16:50 WBC 14.3 H (4.4-11.0) K/mm3 RBC 3.63 L (4.2-5.4) M/mm3 Hgb 10.9 L (12.0-15.0) g/dL Hct 31.7 L (37-47) % MCV 87.3 (81-99) fL MCH 30.0 (27.0-32.0) pg MCHC 34.4 (32-36) g/dL RDW Std Deviation 42.3 (35.1-43.9) fl RDW Coeff of Po 13.5 (11.6-14.6) % Plt Count 194 (150-450) K/mm3 MPV 10.7 (6.2-12.0) fl Immature Gran % (Auto) 0.600 (0.0-0.9) % Neut % (Auto) 81.9 H (47-70) % Lymph % (Auto) 13.2 L (19-41) % [place] % (Auto) 3.4 (0-10) % Eos % (Auto) 0.7 (0-5) % Baso % (Auto) 0.2 (0-1) % Absolute Neuts (auto) 11.7 H (2.0-7.7) X10^3/uL Absolute Lymphs (auto) 1.89 (0.83-4.51) X10^3/uL Nucleated RBC % 0 (0-5) % Urine Color Yellow (Yellow) Urine Clarity Clear (Clear) Urine pH 7.0 (5.0 - 8.0) Ur Specific [place] 1.005 (1.002-1.030) Urine Protein Negative (Negative) mg/dl Urine Glucose (UA) Normal (Normal) mg/dl Urine Ketones 50 H (Negative) mg/dl Urine Occult Blood Negative (Negative) /ul Urine Nitrite Negative (Negative) Urine Bilirubin Negative (Negative) mg/dL Urine Urobilinogen Normal (Normal) mg/dl Ur Leukocyte Esterase Negative (Negative) /ul Charges/Coding Multi Select Codes Urinary/Genital Urinary/Genital CPT Codes: 81675-70 non-stress test Interp Assessment & Plan (1) Abdominal pain affecting : COMMENT: reactive NST. To ER for further evaluation. (2) Low lying placenta, antepartum: COMMENT: repeat US needed. did not get at 28 weeks (3) Family history of Marfan syndrome: COMMENT: Pt's brother...Pt has been tested and does NOT have (4) Supervision of normal : QUALIFIERS: Normal : other normal Trimester: third trimester Qualified Code(s): Z34.83 - Encounter for supervision of other normal , third trimester COMMENT: PRR, , MAURICIO 08/12/24, PC: Sarmad, : Adrien (5) : QUALIFIERS: Weeks of gestation: 30 weeks Qualified Code(s): Z3A.30 - 30 weeks gestation of COMMENT: Discussed genetic/carrier testing AFP - declines, nl anatomy
== END 2024-06-14 18:24 | disposition home or self-care (01) ==
LOC: WPOUT 16:35 → WP 16:35
PROVIDERS: PCP Physician Assistant; Referring Provider Advanced Practice Midwife; Visit Provider Advanced Practice Midwife
DX: O99.891 Other specified diseases and conditions complicating pregnancy (principal); R10.9 Unspecified abdominal pain; Z3A.00 Weeks of gestation of pregnancy not specified
CPT/HCPCS: 96360; 36415; 59025; 59050; 81002; 85025; 99221; G0378

== ENCOUNTER 2024-06-14 18:34 | Emergency (ER) | payer OTHER, SELFPAY ==
[2024-06-14 18:35] VITALS: BP 115/66; PULSE 104; RESP 16; TEMP 36.5; O2SAT 100; BMI 27.1
--- NOTE | 2024-06-14 18:59 | CT_ITS ---
PROCEDURE: ABDOMEN/PELVIS WITH CONTRAST 06/14/2024 REASON FOR EXAM: ABDOMINAL PAIN TECHNIQUE: Abdomen and pelvis CT with intravenous contrast. Coronal and Sagittal reconstruction series were provided. PATIENT PREPARATION: Per protocol ORAL CONTRAST TYPE: None. AMOUNT: mL CONTRAST: Isovue 370 VOLUME: 100 mL Not Provided Gauge IV One or more dose reduction techniques were used (e.g., Automated exposure control, adjustment of the mA and/or kV according to patient size, use of iterative reconstruction technique. RADIATION DOSE SUMMARY: CTDlvol: 17 mGy DLP: 977 mGycm COMPARISON: None FINDINGS: Lung bases: Mild dependent atelectasis Liver: Normal size. No mass. Gallbladder: Unremarkable Spleen: Normal size. Pancreas: Normal size without evidence of mass surrounding inflammation or ductal dilation. Adrenals: Unremarkable Kidneys: Normal renal sizes. No hydronephrosis. Bladder: Unremarkable Reproductive Organs: There is evidence of an intrauterine fetus in vertex position. The placenta is anterior. Bowel: Stomach appears grossly unremarkable. Oral contrast reaches the mid small bowel. Distal small bowel is decompressed. Focal narrowing of the mid ascending colon, best appreciated on series 6 01 image number 77, this may be secondary to peristalsis versus focal colitis. The remaining large bowel is grossly unremarkable. Appendix: The appendix is not clearly visualized. Lymph nodes: No lymphadenopathy. Vasculature: Unremarkable Peritoneum / Retroperitoneum: No free air or free fluid. Bones: Unremarkable CT/Abdomen/Pelvis WITH Contrast IMPRESSION: The appendix is not clearly visualized. No abnormal fluid collection to sugges t acute appendicitis. Focal narrowing of the mid ascending colon, this may be secondary to peristalsi s versus focal colitis. Evidence of an intrauterine fetus in the vertex position. Placenta is anterior . [facility]
--- NOTE | 2024-06-14 19:01 | EDS_ITS ---
HPI HPI - GI History of Present Illness Chief Complaint: Abd Pain Informant: patient Abdominal Pain/Flank Pain Onset: Yesterday Context: Gradual Onset Timing: Continuous Quality: Sharp Location: RLQ Worsened by: Movement and - (Bending) Relieved by: Nothing Nausea/Vomiting/Emesis GI Symptom: Positive for Nausea; Negative for Vomiting Diarrhea/Melena/Hematochezia GI Symptom: Negative for Diarrhea, Melena or Hematochezia Associated Symptoms Associated Symptoms: Negative for Dysuria, Frequency or Hematuria Narrative Narrative: Presents with right lower abdominal pain that has been getting worse since yesterday. Patient states is gradually getting worse. Patient states it has been constant. Patient describes her pain as sharp. Patient states it is mainly over the right lower abdomen. Patient states it is worse with bending and with movement. Patient admits to some nausea but denies any vomiting. Patient admits to decreased appetite. Patient denies any diarrhea, melena, or hematochezia. Patient denies any urinary complaints. Patient is 31 weeks and 5 days . Patient is 2 para 1. Patient was seen in the OB unit and had a nonstress test done which was negative. Patient had a CBC drawn there which showed a leukocytosis of 14.3. Patient also had a urinalysis there which was normal. The patient was then referred to the emergency department for possible appendicitis. [facility] Medical History Vaginal delivery Acute otitis media, left Acute frontal sinusitis, unspecified Non-smoker Pneumonia Home Medications ?Medication ?Instructions ?Recorded ?Last Taken ?Type [id number] 1 mg 1 tab PO DAILY supple ment 06/16/22 06/10/24 09:00 History tablet 1 TAB amoxicillin 875 mg-potassium 875 mg PO Q12H #20 TABLET S 06/14/24 Unknown Rx clavulanate 125 mg tablet Allergy/AdvReac Type Severity Reaction Status Date / Time No Known Allergies Allergy Verified 06/14/24 18:39 Family History Brother Heart disease Marfan syndrome Aunt Pancreatic cancer Surgical History History of gynecologic surgery Social History adopted: No household members: spouse and children number of children: 1 current occupation: [employer] current occupational exposures/hazards: No pets and animals: Yes history of recent travel: No sexually active: Yes Smoking Status: Never smoker alcohol intake: current alcohol intake frequency: holidays/special occasions only details: Not while substance use type: does not use well-balanced diet: daily or most days caffeine: Yes Type: coffee eating out: rarely or never during the past year weight has: remained stable what type of physical activity do you participate in: weight training frequency: 3-4 times per week duration: 30-45 minutes/day roderick/jehovah's witness: Spiritism seatbelt use: always do you feel safe at home: Yes additional social history: : Adrien HE ROS ED Constitutional Constitutional ED: Denies chills or fever(s) Eyes Eyes: Denies blurry vision or change in vision ENT ENT ED: Denies rhinorrhea or sore throat Cardiovascular Cardiovascular: Denies chest pain or palpitations Respiratory/Chest Respiratory/Chest: Denies cough or dyspnea Gastrointestinal Gastrointestinal: Reports abdominal pain and nausea; Denies vomiting Genitourinary Genitourinary ED: Denies dysuria or hematuria Musculoskeletal Musculoskeletal: Denies back pain or neck pain Integumentary Denies abscess or rash Neurologic Neurologic: Denies headache(s) or weakness Allergic/Immunologic Allergic/Immunologic ED: Denies mouth swelling or urticaria EXAM Physical Exam Const Vital Signs: 06/14/24 18:35 06/14/24 20:34 06/14/24 22:00 Temperature 97.7 F L Temperature Source Temporal Pulse Rate 104 H 105 H 100 Respiratory Rate 16 18 18 Blood Pressure 115/66 107/69 116/68 Blood Pressure Mean 82 81 84 Pulse Ox 100 97 97 Oxygen Delivery Method Room Air Room Air Room Air Positive well nourished and well developed General Appearance ED: well developed and NAD HEENT Reports moist mucous membranes Neck supple and no JVD Resp normal respiratory effort and clear to auscultation bilaterally Cardio regular rate and regular rhythm GI non-distended Auscultation: normoactive bowel sounds Palpation: soft Neuro CN's II-XII intact bilaterally, moves all extremities and no sensory deficits noted Sensorium / Orientation: alert Motor Exam: strength 5/5 throughout Psych mental status grossly normal MDM MDM MDM Narrative Medical decision making narrative: Differential diagnosis is appendicitis, round ligament pain, ovarian cyst, colitis, ureteral calculus, and pyelonephritis. Comprehensive metabolic profile will be obtained to assess for hepatic function, renal function, and electrolyte abnormality. CT scan of the abdomen and pelvis will be obtained to assess for appendicitis, colitis, and pyelonephritis. History & Record Review Additional record(s) reviewed:: Prior outpatient record and Prior labs Lab Data Attestation: I reviewed the patient's lab results. Lab results narrative: Comprehensive metabolic profile was reviewed and was essentially within normal limits. Labs: Laboratory Results - last 24 hr 06/14/24 19:15 Sodium 138 Potassium 3.6 Chloride 105 Carbon Dioxide 20.5 L Anion Gap 13 BUN 5 Creatinine 0.45 L Estim Creat Clear Calc 204.41 Est GFR (MDRD) Non-Af 136 BUN/Creatinine Ratio 11.4 Glucose 84 Calcium 8.7 Total Bilirubin 0.31 AST 16 ALT 11 Alkaline Phosphatase 76 Total Protein 6.6 Albumin 3.6 Globulin 2.9 Albumin/Globulin Ratio 1.2 Radiography Diagnostic Testing: Clinical Impression(s) from Imaging Studies Abdomen/Pelvis CT 06/14/24 18:59 IMPRESSION: The appendix is not clearly visualized. No abnormal fluid collection to suggest acute appendicitis. Focal narrowing of the mid ascending colon, this may be secondary to peristalsis versus focal colitis. Evidence of an intrauterine fetus in the vertex position. Placenta is anterior. Reading Location: [facility] CT scan of the abdomen pelvis was obtained. The appendix is not clearly visualized. There is no abnormal fluid collection to suggest acute appendicitis. There is some focal narrowing of the mid ascending colon which may be secondary to peristalsis versus focal colitis. This was interpreted by the radiologist and was also independently reviewed by myself. Treatment and Re-Evaluation :: Patient was given IV fluids, morphine, and Zofran. Patient was given a repeat dose of morphine. Patient was advised of her findings. Case was discussed with Dr. Lali Bob. She agrees with antibiotic treatment with Augmentin. Patient was given her first dose here. Patient was instructed to follow-up in 2 to 3 days. Patient was instructed to return if worse in any way. Patient and spouse understood and were agreeable with the plan. All questions were answered. Discharge Plan Triage Chief Complaint: Abd Pain ED Provider: Benjamin Greenwood Dx/Rx/DC Orders Clinical Impression: Colitis, Instructions: ED Understanding Colitis Prescriptions: New amoxicillin-pot clavulanate 875-125 mg tablet 875 mg PO Q12H Qty: 20 0RF No Action 1 mg Tablet 1 tab PO DAILY Primary Care Provider: Madisyn Torres Referrals: Lali Bob MD [Med Staff - Active Staff] - 3-5 Days Madisyn Torres PA [Primary Care Provider] - 3-5 Days Print Language: Ugandan Disposition Disposition: Home, Self Care
[2024-06-14] MEDS: Morphine 4 MG/ML Syringe IV ×2 (19:12→21:24)
[2024-06-14] MEDS: 0.9% Normal Saline (1000mL) 1,000 ML 999 ML IV (19:12)
[2024-06-14] MEDS: Ondansetron 4 MG/2 ML Vial IV (19:12)
[2024-06-14 19:40] LABS: ALB/GLOB Ratio 1.2 RATIO (0.9-2.4); AST(SGOT) 16 U/L (<=31); Alanine Aminotransfer ALT/SGPT 11 U/L (<=34); Albumin, Serum 3.6 g/dL (3.5-5.0); Alkaline Phosphatase 76 U/L (35-104); Anion Gap 13 (5-15); BUN 5 mg/dL (4-19); BUN/Creat Ratio 11.4 RATIO (10-20); Calcium,Total 8.7 mg/dL (7.6-11.0); Carbon Dioxide 20.5 mmol/L (21.0-32.0); Chloride 105 mmol/L (98-108); Creatinine, Serum 0.45 mg/dL (0.70-1.20); EST Glomerular Filtration Rate 136 (>60); Estimated Creatinine Clearance 204.41 ml/min (50-250); Globulin 2.9 g/dL (2.2-4.2); Glucose 84 mg/dL (70-99); Potassium 3.6 mmol/L (3.3-5.1); Protein, Total 6.6 g/dL (5.9-8.4); Sodium Level 138 mmol/L (133-145); Total Bilirubin 0.31 mg/dL (0.00-1.30)
[2024-06-14 20:34] VITALS: BP 107/69; PULSE 105; RESP 18; O2SAT 97
[2024-06-14 22:00] VITALS: BP 116/68; PULSE 100; RESP 18; O2SAT 97
[2024-06-14 22:27] VITALS: BP 109/62; PULSE 105; RESP 16; TEMP 36.5; O2SAT 96
[2024-06-14] MEDS: Amox/Clavulanate 875 MG Tablet PO (22:30)
== END 2024-06-14 22:35 | disposition home or self-care (01) ==
PROVIDERS: Emergency Provider Emergency Medicine; PCP Physician Assistant; Visit Provider Emergency Medicine
DX: O99.613 Diseases of the digestive system complicating pregnancy, third trimester (principal); K52.9 Noninfective gastroenteritis and colitis, unspecified; Z3A.31 31 weeks gestation of pregnancy
CPT/HCPCS: 74177; 80053; 96361; 96374; 96375; 96376; 99282; Q9967; A4216; J2405

== ENCOUNTER 2024-06-15 18:39 | Emergency (ER) | payer SELFPAY ==
[2024-06-15 18:40] VITALS: BP 121/83; PULSE 132; RESP 18; TEMP 36.8; O2SAT 100; BMI 26.9
[2024-06-15 18:42] VITALS: BP 121/83; PULSE 130; RESP 18; TEMP 36.8; O2SAT 98
--- NOTE | 2024-06-15 18:45 | EDS_ITS ---
HPI History of Present Illness Chief Complaint: Abd Pain [facility] Medical History Vaginal delivery Acute otitis media, left Acute frontal sinusitis, unspecified Non-smoker Pneumonia Home Medications ?Medication ?Instructions ?Recorded ?Last Taken ?Type nmegmpsk-hjo-[id number]-FA 1 mg 1 tab PO DAILY supple ment 06/16/22 06/10/24 09:00 History tablet 1 TAB amoxicillin 875 mg-potassium 875 mg PO Q12H #20 TABLET S 06/14/24 Unknown Rx clavulanate 125 mg tablet Allergy/AdvReac Type Severity Reaction Status Date / Time No Known Allergies Allergy Verified 06/15/24 18:39 Family History Brother Heart disease Marfan syndrome Aunt Pancreatic cancer Surgical History History of gynecologic surgery Social History adopted: No household members: spouse and children number of children: 1 current occupation: [employer] current occupational exposures/hazards: No pets and animals: Yes history of recent travel: No sexually active: Yes Smoking Status: Never smoker alcohol intake: current alcohol intake frequency: holidays/special occasions only details: Not while substance use type: does not use well-balanced diet: daily or most days caffeine: Yes Type: coffee eating out: rarely or never during the past year weight has: remained stable what type of physical activity do you participate in: weight training frequency: 3-4 times per week duration: 30-45 minutes/day roderick/moravian: Hoahaoism seatbelt use: always do you feel safe at home: Yes additional social history: : Adrien [employer] EXAM Physical Exam Const Vital Signs: 06/15/24 18:40 06/15/24 18:42 06/15/24 19:20 Temperature 98.2 F 98.2 F Temperature Source Oral Oral Pulse Rate 132 H 130 H 109 H Respiratory Rate 18 18 18 Blood Pressure 121/83 H 121/83 H Blood Pressure Mean 95 95 Pulse Ox 100 98 96 Oxygen Delivery Method Room Air Room Air Room Air MDM MDM MDM Narrative Medical decision making narrative: HISTORY OF PRESENT ILLNESS: Chief complaint: Abdominal pain 28-year-old female presents with abdominal pain. Notes ongoing abdominal pain. No recent diagnosed with colitis. Notes right side abdominal pain. No fever. No change in bowel or bladder habit. No history of abdominal surgeries. No she is a G2, P1. She is approximately 32 weeks gestation. No trouble urinating. No flank pain. REVIEW OF SYSTEMS: Pertinent positives: Abdominal pain Pertinent negatives: Trouble urinating PHYSICAL EXAM: Nursing triage notes reviewed, Vital signs reviewed Constitutional: please see mdm HENT: MMM Eyes: Pupils equal round and reactive to light, Extraocular muscles intact Neck: No stridor, no JVD, full neck ROM Lungs: Clear to auscultation, No wheezing or rales. No increased work of breathing, no conversational dyspnea, no accessory muscle use, no nasal flaring. No respiratory distress noted Heart: Regular rate and rhythm, No murmurs, No rubs and No gallops, 2+ distal pulses (radial, femoral, posterior tibial) in all extremities Abdomen: Diffusely tender along the right upper and lower quadrant. Soft,, gravid uterus, no obvious rigidity, rebound. There is voluntary guarding, no palpable pulsatile abdominal masses, no auscultated abdominal bruit : No CVAT Extremities: No edema Neuro: No new focal neurological deficits, cranial nerves II through XII intact, 5/5 strength in all present extremities. Intact sensation to light touch in all present extremities, 2+ reflexes bilateral patella tendons. Skin: No rash or lesions noted MEDICAL DECISION MAKING: Chief Complaint: please see HPI External records reviewed: Reviewed imaging studies: Reviewed CT scan of the abdomen pelvis with contrast from yesterday (06/14/2024) showed signs of colitis, it stated the appendix is not clearly visualized. There is no abnormal fluid collection to suggest appendicitis however. Reviewed labs from yesterday. CBC showed leukocytosis suggestive of systemic systemic inflammation, mild anemia. Chemistries showed no evidence of metabolic acidosis or endorgan hypoperfusion, urinalysis negative Factors affecting care: none Social determinants of health: none History obtained from others: Consults: ON SITE CONSTRUCTION SUPERINTENDENT (Dr. Delvalle)?recommended MRI without contrast and lab [facility] Narrative: The patient was initially tachycardic otherwise afebrile and nontoxic-appearing. Exam with significantly tender right upper and lower quadrant. No obvious peritoneal signs but there was some voluntary guarding. I considered the following differential diagnosis: Colitis, acute appendicitis, nephrolithiasis, UTI, pyelonephritis ALL IMAGES (IF OBTAINED) HAVE BEEN PERSONALLY REVIEWED AND INTERPRETED BY MYSELF. Lactate is wnl indicating no end-organ hypoperfusion and/or hypoxia. CBC shows uptrending leukocytosis concerning for systemic inflammation, noted mild anemia, no thrombocytopenia CMP without evidence of metabolic acidosis or endorgan hypoperfusion, normal electrolytes, no acute kidney injury, no signs of hepatobiliary pathology Urinalysis with evidence of ketonuria as well as urinary phonation as well as bacteria MRI of the abdomen [] The patient and/or family, caregivers express understanding. The patient and/or family, caregivers agrees with the plan. Shared decision making: I will have a discussion with the patient and or visitors regarding risk/benefits of further testing or admission. They will be made aware of of the risk/benefits inherent in this decision they will be given the opportunity to voice understanding. Total critical care time today provided was at least 0 minutes. This excludes separately billable procedures. Critical care time (if documented) is secondary to the patient having high probability of clinically significant/life threatening deterioration in the patient's condition which required my urgent intervention. Impression: 1. Acute abdominal pain 2. Third trimester Dispo: [] This note was generated with [employer] dictation software. It may contain incorrect words, spelling, and punctuation that were not noted in review of the chart prior to signing. Lab Data Labs: Laboratory Results - last 24 hr 06/15/24 06/15/24 19:15 19:21 WBC 15.6 H RBC 3.76 L Hgb 11.2 L Hct 33.0 L MCV 87.8 MCH 29.8 MCHC 33.9 RDW Std Deviation 43.8 RDW Coeff of Po 13.6 Plt Count 216 MPV 10.6 Immature Gran % (Auto) 0.600 Neut % (Auto) 82.7 H Lymph % (Auto) 10.9 L [place] % (Auto) 4.9 Eos % (Auto) 0.7 Baso % (Auto) 0.2 Absolute Neuts (auto) 12.9 H Absolute Lymphs (auto) 1.71 Nucleated RBC % 0 Sodium 137 Potassium 3.8 Chloride 104 Carbon Dioxide 22.3 Anion Gap 11 BUN 4 Creatinine 0.52 L Estim Creat Clear Calc 176.43 Est GFR (MDRD) Non-Af 132 BUN/Creatinine Ratio 8.5 L Glucose 111 H Lactic Acid < 1.0 Calcium 8.5 Total Bilirubin 0.35 AST 18 ALT 11 Alkaline Phosphatase 80 Total Protein 6.8 Albumin 3.7 Globulin 3.1 Albumin/Globulin Ratio 1.2 Urine Color Yellow Urine Clarity Cloudy Urine pH 6.0 Ur Specific [place] 1.015 Urine Protein 30 H Urine Glucose (UA) Normal Urine Ketones 150 A* Urine Occult Blood Negative Urine Nitrite Negative Urine Bilirubin Negative Urine Urobilinogen Normal Ur Leukocyte Esterase 500 H Urine RBC 0 SEEN Urine WBC 25-50 SEEN Ur Squamous Epith Cells 25-50 SEEN Urine Bacteria 2+ Urine Mucus 0 SEEN Discharge Plan Triage Chief Complaint: Abd Pain ED Provider: Hugo Stiles Dx/Rx/DC Orders Prescriptions: No Action 1 mg Tablet 1 tab PO DAILY amoxicillin-pot clavulanate 875-125 mg tablet 875 mg PO Q12H Qty: 20 0RF Primary Care Provider: Madisyn Torres Referrals: Madisyn Torres PA [Primary Care Provider] - Print Language: Citizen Of [place]
[2024-06-15] MEDS: Acetaminophen 500 MG Tablet 1000 MG PO (19:18)
[2024-06-15] MEDS: 0.9% Normal Saline (1000mL) 1,000 ML 999 ML IV (19:18)
[2024-06-15 19:19] LABS: Mucous, Urine 0 SEEN /hpf (<or=2+); Red Blood Cells-Urine 0 SEEN /hpf (0-5)
[2024-06-15 19:20] VITALS: PULSE 109; RESP 18; O2SAT 96
--- NOTE | 2024-06-15 19:33 | MRI_ITS ---
PROCEDURE: Pelvis WITHOUT CONTRAST 06/15/2024 REASON FOR EXAM: RIGHT SIDED ABDOMINAL PAIN TECHNIQUE: MRI of the pelvis without and with intravenous gadolinium-based contrast. Multiplanar and multisequence images were obtained. FINDINGS: Peritoneum / Retroperitoneum: Enlarged gravid uterus. Prominent appendix with edematous wall and some stranding of the surrounding fat worrisome for acute appendicitis. No loculated fluid collection to suggest abscess. Lymph Nodes: Unremarkable. Major Vessels: Normal abdominal aorta and inferior vena cava. . Bones: Unremarkable. MRI/Abdomen without Contrast IMPRESSION: Acute appendicitis without abscess. Dr. Stiles was notified on 06/15/2024 at 2100. Reading Location: [id number]
[2024-06-15 19:41] LABS: Absolute Lymphocyte Count 1.71 X10^3/uL (0.83-4.51); Absolute Neutrophil Count 12.9 X10^3/uL (2.0-7.7); Basophil# 0.03 X10^3/uL; Basophil% 0.2 % (0-1); Eosinophil# 0.11 X10^3/uL; Eosinophils% 0.7 % (0-5); Hemoglobin 11.2 g/dL (12.0-15.0); Lymphocyte # 1.71 X10^3/ul (0.83-4.51); Lymphocyte % 10.9 % (19-41); Mean Corp Hgb Conc 33.9 g/dL (32-36); Mean Corpuscular Hgb 29.8 pg (27.0-32.0); Mean Corpuscular Volume 87.8 fL (81-99); Mean Platelet Vol. 10.6 fl (6.2-12.0); Monocyte# 0.76 X10^3/uL; Monocyte% 4.9 % (0-10); NRBC Flagged by Analyzer 0 % (0-5); Neutrophil # 12.92 X10^3/uL (2.7-7.7); Neutrophil % 82.7 % (47-70); Platelet Count 216 K/mm3 (150-450); RBC Distribution Width CV 13.6 % (11.6-14.6); RBC Distribution Width SD 43.8 fl (35.1-43.9); Red Blood Count 3.76 M/mm3 (4.2-5.4); White Blood Count 15.6 K/mm3 (4.4-11.0)
[2024-06-15 19:46] LABS: Color, Urine Yellow (Yellow); Glucose, Dipstick Normal (Normal); Leukocyte Esterase-Dipstick 500 /ul (Negative); Nitrite-Dipstick Negative (Negative); Occult Blood-Urine Negative /ul (Negative); Protein-Dipstick 30 mg/dl (Negative); Specific Gravity, Urine 1.015 (1.002-1.030); Urine Bilirubin Dipstick Negative (Negative); Urine Clarity Cloudy (Clear); Urine Urobilinogen Normal (Normal)
[2024-06-15 19:54] LABS: Ketone-Dipstick 150 mg/dl (Negative)
[2024-06-15 20:00] LABS: Lactic Acid < 1.0 mmol/L (0.0-2.0)
[2024-06-15 20:10] LABS: ALB/GLOB Ratio 1.2 RATIO (0.9-2.4); AST(SGOT) 18 U/L (<=31); Alanine Aminotransfer ALT/SGPT 11 U/L (<=34); Albumin, Serum 3.7 g/dL (3.5-5.0); Alkaline Phosphatase 80 U/L (35-104); Anion Gap 11 (5-15); BUN 4 mg/dL (4-19); BUN/Creat Ratio 8.5 RATIO (10-20); Calcium,Total 8.5 mg/dL (7.6-11.0); Carbon Dioxide 22.3 mmol/L (21.0-32.0); Chloride 104 mmol/L (98-108); Creatinine, Serum 0.52 mg/dL (0.70-1.20); EST Glomerular Filtration Rate 132 (>60); Estimated Creatinine Clearance 176.43 ml/min (50-250); Globulin 3.1 g/dL (2.2-4.2); Glucose 111 mg/dL (70-99); Potassium 3.8 mmol/L (3.3-5.1); Protein, Total 6.8 g/dL (5.9-8.4); Sodium Level 137 mmol/L (133-145); Total Bilirubin 0.35 mg/dL (0.00-1.30)
[2024-06-15 20:13] LABS: Squamous Epithelial Cells - UA 25-50 SEEN /hpf (5-10)
[2024-06-15 20:14] LABS: White Blood Cells 25-50 SEEN /hpf (0-5)
[2024-06-15 20:15] LABS: Bacteria 2+ /hpf (None Seen)
[2024-06-15 20:44] VITALS: BP 122/71; PULSE 104; RESP 14; TEMP 36.9; O2SAT 97
[2024-06-15] MEDS: Morphine 2 MG/ML Syringe IV (21:12)
[2024-06-15] MEDS: Piperacil/Tazobactam 3.375 GM in 0.9% Normal Saline (50mL MB+) 50 ML IV (21:13)
[2024-06-15 22:00] VITALS: BP 122/75; PULSE 106; RESP 19; TEMP 37.1; O2SAT 98
[2024-06-15] MEDS: HYDROmorphone 0.5 MG/0.5 ML SYRINGE IV (22:22)
[2024-06-15 22:44] VITALS: BP 122/75; PULSE 106; RESP 15; TEMP 37.1; O2SAT 98
--- NOTE | 2024-06-15 22:45 | ED.RN ---
This RN called report to OB Triage at [facility]
== END 2024-06-15 22:47 | disposition short-term general hospital (02) ==
PROVIDERS: Emergency Provider Emergency Medicine; PCP Physician Assistant; Visit Provider Emergency Medicine
DX: O26.893 Other specified pregnancy related conditions, third trimester (principal); K35.80 Unspecified acute appendicitis; O99.613 Diseases of the digestive system complicating pregnancy, third trimester; O99.113 Other diseases of the blood and blood-forming organs and certain disorders involving the immune mechanism complicating pregnancy, third trimester; R10.9 Unspecified abdominal pain; D72.829 Elevated white blood cell count, unspecified; Z3A.32 32 weeks gestation of pregnancy
CPT/HCPCS: 74181; 80053; 81001; 83605; 85025; 96361; 96365; 96375; 99284; A4216

== ENCOUNTER → 2024-07-01 | Outpatient (CLI) | payer SELFPAY ==
--- NOTE | 2024-07-01 11:45 | US_ITS ---
PROCEDURE: OB LIMITED WITH BIOMETRICS 07/01/2024 REASON FOR EXAM: PLACENTAL LOCATION AND GROWTH TECHNIQUE: High resolution obstetric ultrasound performed using a 2D transducer. Standard views obtained, including biometry, anatomy survey, and Doppler studies. FINDINGS Transabdominal and transvaginal imaging Single live intrauterine cardiac activity 143 beats per minute. Presentation is cephalic. Cervical length 3.5 cm and appears closed. DENISE 18.3 cm Right lateral placenta appears within limits, not low-lying, grade 2 DIMENSIONS: Biparietal Diameter: 8.71 cm/35 weeks 1 day, 79% Head Circumference: 33.09 cm/37 weeks 5 days, 94% Abdominal Circumference: 32.44 cm/36 weeks 2 days, 97% Femur Length: 6.46 cm/33 weeks 2 days, 23% FL/AC 19.90% (20.00 24.00%) FL/BPD 74%, FL/HC 20%, CI 73%, HC/AC 1.02 ESTIMATED WEIGHT: 2681 g +/-402 g, 83% ESTIMATED WEIGHT PERCENTILE (24+ weeks): 83% Estimated age by current ultrasound 35 weeks 6 days, MAURICIO 07/30/2024 age by prior ultrasound 34 weeks 1 day, MAURICIO 08/11/2024 age by LMP 34 weeks 0 days, MAURICIO 08/12/2024 US/OB Limited With Biometrics IMPRESSION: FL/AC 19.90% (20.00 24.00%) . Single live intrauterine with b iometry as above. Reading Location: [id number]
== END | disposition home or self-care (01) ==
PROVIDERS: PCP Physician Assistant; Referring Provider Advanced Practice Midwife; Visit Provider Advanced Practice Midwife
DX: O44.43 Low lying placenta NOS or without hemorrhage, third trimester (principal); Z3A.00 Weeks of gestation of pregnancy not specified
CPT/HCPCS: 76816

== ENCOUNTER → 2024-07-07 | Outpatient (CLI) | payer SELFPAY | END | disposition home or self-care (01) | LOC: LABSPEC 11:13 | PROVIDERS: PCP Physician Assistant; Referring Provider Obstetrics & Gynecology; Visit Provider Obstetrics & Gynecology | DX: T81.321A Disruption or dehiscence of closure of internal operation (surgical) wound of abdominal wall muscle or fascia, initial encounter (principal) | CPT/HCPCS: 87070; 87077; 87186; 87205 ==

== ENCOUNTER → 2024-07-21 | Outpatient (CLI) | payer OTHER, SELFPAY | END | disposition home or self-care (01) | LOC: LABSPEC 14:59 | PROVIDERS: PCP Physician Assistant; Referring Provider Advanced Practice Midwife; Visit Provider Advanced Practice Midwife | DX: Z34.83 Encounter for supervision of other normal pregnancy, third trimester (principal) | CPT/HCPCS: 87081 ==

== ENCOUNTER 2024-08-10 16:10 | Inpatient (IN) | payer SELFPAY, OTHER ==
[2024-08-10] VITALS (53 sets, daily range): BP systolic 102–140; BP diastolic 56–86; PULSE 85–126; RESP 12–16; TEMP 36.6–37.1; O2SAT 92–100; BMI 28.2
--- OUTSIDE RECORDS SUMMARY | 2024-08-10 00:59 | XMS RPT_ITS | CCD ---
Author Organization [facility] Care Team Providers Care Vision Care Associate Name Role Phone HAYLEY ANDERSON Admitting Unavailable HAYLEY ANDERSON Attending Unavailable HAYLEY ANDERSON Primary Care Unavailable Madisyn Thrasher Primary Care Provider Madisyn Thrasher Referring Provider Dr. Lali Bro MD Attending Provider [phone] Emely Haque Attending Provider Paolo GLASSCEmely Referring Provider Dr. Lali Bro MD Referring Provider Tova Prather CNM Attending Provider Tova Prathre CNM Referring Provider Madisyn Thrasher Primary Care Provider Madisyn Thrasher Referring Provider Dr. Lali Bro MD Attending Provider [phone] Dr. Leonela Montejo DO Attending Provider Tova Prather CNM Other Provider Dr. Benjamin Greenwood DO Emergency Provider Unavailable Primary Care Provider UnavailSHAWN Anthony Consulting Unavailable OZZIE AGUIRRE Attending Unavailable OZZIE AGUIRRE Admitting Unavailable Madisyn Thrasher Primary Care Provider Madisyn Thrasher Referring Provider Emely Haque Attending Provider Dr. Benjamin Greenwood DO Attending Provider [phone] Hugo Stiles DO Attending Provider Dr. Hugo Stiles DO Emergency Provider Torres PA, Madisyn Primary Care Provider Torres PA, Madisyn Referring Provider Paolo RU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-CEmely Attending Provider Paulino ARZATE, Dr. Escalera Attending Provider Dr. Lali Bro MD Referring Provider Torres PA, Madisyn Referring Unavailable Torres PA, Madisyn Primary Care Unavailable Lali Bro Attending Unavailable Torres PA, Madisyn Primary Care Unavailable Susan Somers Attending Unavailable Torres PA, Madisyn Primary Care Unavailable Torres PA, Madisyn Referring Unavailable Tova Prather Attending Unavailable Torres PA, Madisyn Primary Care Unavailable Torres PA, Madisyn Referring Unavailable Tova Prather Attending Unavailable Torres PA, Madisyn Primary Care Unavailable Tova Prather Referring Unavailable Tova Prather Attending Unavailable Torres PA, Madisyn Primary Care Unavailable VeldeLeonela Referring Unavailabl e Velde, Leonela Bee Attending Unavailabl e Torres PA, Madisyn Referring Unavailable [place] RU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, Emely Attending Unavailable Torres PA, Madisyn Primary Care Unavailable Torres PA, Madisyn Referring Unavailable Lali Bro Attending Unavailable Torres PA, Madisyn Primary Care Unavailable Torres PA, Madisyn Primary Care Unavailable Torres PA, Madisyn Referring Unavailable VelLeonela mueller Attending Unavailabl e Torres PA, Madisyn Primary Care Unavailable Tova Prather Referring Unavailable Tova Prather Attending Unavailable Torres PA, Madisyn Primary Care Unavailable Tova Prather Attending Unavailable Crescencio Tova Referring Unavailable Torres PA, Madisyn Primary Care Unavailable Lali Bro Attending Unavailable Lali Bro Admitting Unavailable [place] RU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 Emely Referring Unavailable Paolo RU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, Emely Attending Unavailable Torres PA, Madisyn Primary Care Unavailable Torres PA, Madisyn Primary Care Unavailable Tova Prather Referring Unavailable Tova Prather Attending Unavailable Torres PA, Madisyn Referring Unavailable [place] RU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, Emely Attending Unavailable Torres PA, Madisyn Primary Care Unavailable Torres PA, Madisyn Referring Unavailable Torres PA, Madisyn Primary Care Unavailable Tova Prather Attending Unavailable Torres PA, Madisyn Referring Unavailable Leonela Antoine Attending Unavailabl e Torres PA, Madisyn Primary Care Unavailable Torres PA, Madisyn Primary Care Unavailable Tova Prather Attending Unavailable Tova Prather Consulting Unavailable Tova Prather Referring Unavailable Torres PA, Madisyn Primary Care Unavailable Torres PA, Madisyn Referring Unavailable Leonela Antoine Attending Unavailabl e Torres PA, Madisyn Primary Care Unavailable Lali Bro Referring Unavailable MarcanthonyLali Attending Unavailable Torres PA, Madisyn Primary Care Unavailable Marcanthony, Lali Referring Unavailable Marcanthony, Lali Attending Unavailable Torres PA, Madisyn Primary Care Unavailable Tova Prather Attending Unavailable Torres PA, Madisyn Referring Unavailable Emely Boone NP Attending Unavailable Torres PA, Madisyn Primary Care Unavailable Torres PA, Madisyn Referring Unavailable Marcanthony, Lali Referring Unavailable Torres PA, Madisyn Primary Care Unavailable Lali Bro Attending Unavailable Benjamin Greenwood Attending Unavailable Torres PA, Madisyn Primary Care Unavailable Torres PA, Madisyn Primary Care Unavailable Hugo Stiles Attending Unavailable Medications Current Medications Medication Drug Class(es) Dates Sig (Normalized) Sig (Original) acetaminophen 500 mg oral tablet (4 sources) Start: 06-17-2024 End: 06-27-2024 take 1 tablet by mouth every six hours as needed for pain acetaminophen (Tylenol Extra Strength) 500 MG tablet Take 1 tablet (500 mg) by mouth every 6 hours as needed for mild pain (1-3) for up to 10 days. 30 tablet 06/17/2024 06/27/2024 Active Start: 06-16-2024 End: 06-17-2024 take 1 tablet by mouth every six hours 650 mg, Oral, Every 6 hours, First dose (after last modification) on Sat06/16/24 at 0330, Maximum dose of acetaminophen is 4000 mg from all sources in 24 hours. docusate sodium 100 mg oral capsule (2 sources) Start: 06-17-2024 End: 06-27-2024 take 1 capsule by mouth twice daily as needed for constipation docusate sodium (Colace) 100 MG capsule Take 1 capsule (100 mg) by mouth 2 times daily as needed for constipation for up to 10 days. 20 capsule 06/17/2024 06/27/2024 Active Nebueqln-Vzy-Vw-Fa () 1 mg Tablet (9 sources) Start: 06-16-2022 take 1 tablet by lm th once daily Jlnonnty-Ozl-Fb-Fa () 1 mg Tablet Active 1 {tbl} PO DAILY June 16, 2022 12:00am Completed/Discontinued Medications Medication Drug Class(es) Dates Sig (Normalized) Sig (Original) amoxicillin 875 mg / clavulanate 125 mg oral tablet (7 sources) Penicillin-class Antibacterial Start: 06-14-2024 End: 06-23-2024 take 1 tablet by mouth every twelve hours Amoxicillin-Pot Clavulanate 875-125 mg tablet Discontinued 875 mg PO Q12H June 14, 2024 12:00am June 23, 2024 1:16pm azithromycin 250 mg oral tablet (20 sources) Macrolide Antimicrobial Start: 10-16-2018 End: 04-08-2019 Azithromycin 250 mg tablet Discontinued 0 PO .COMPLEX 6 October 16, 2018 12:00am April 08, 2019 4:53pm Take two tablets by mouth on day one then one tablet by mouth on days 2-5 Start: 06-30-2018 End: 09-22-2018 take 2-5 tablets by mouth once daily Azithromycin 250 mg tablet Discontinued 0 PO .COMPLEX June 30, 2018 12:00am September 22, 2018 7:27am take 500 mg today (day 1), then 250 mg for 4 days (days 2-5) PO benzonatate 100 mg oral capsule (12 sources) Non-narcotic Antitussive Start: 06-27-2018 End: 09-22-2018 take 2 capsules by mouth three times daily as needed for cough Benzonatate 100 mg capsule Discontinued 200 mg PO THREE TIMES A DAY as needed for cough June 27, 2018 12:00am September 22, 2018 7:27am Start: 06-27-2018 End: 09-22-2018 take 200 mg by mouth three times daily Benzonatate Discontinued 200 MG PO THREE TIMES A DAY June 26, 2018 11:00pm September 22, 2018 6:27am betamethasone 3 mg/ml / betamethasone acetate 3 mg/ml injectable suspension (2 sources) Corticosteroid Start: 06-16-2024 End: 06-17-2024 inject 12 mg by intramuscular injection every twenty-four hours 12 mg, IntraMUSCular, Every 24 hours, First dose on Sat06/16/24 at 0100, For 2 doses calcium chloride 0.0014 meq/ml / potassium chloride 0.004 meq/ml / sodium chloride 0.103 meq/ml / sodium lactate 0.028 meq/ml injectable solution (4 sources) Start: 06-16-2024 End: 06-16-2024 500 mL, IntraVENous, at 250 mL/hr, Administer over 2 Hours, Once, On Sat06/16/24 at 0530, For 1 dose Start: 06-16-2024 End: 06-16-2024 take 125 mL intravenously every hour 125 mL/hr, IntraVENous, Continuous, Starting on Sat06/16/24 at 0130 cephalexin 500 mg 187 -???-???-???-???-??? -???-???-???-???-??? -???-???- JV- CRL cons istent with LMP. patient very nauseated today so declines pap today. will do next visit. declines medication. taking unisom + B6. declines nipt. 02/04/24 -???-???-???-???-??? -???-???-???-???-??? -???-???- 12w 6d 159 lb 2 oz 122/81 Negative -???-???-???-???-??? -???-???-???-???-??? -???-???- Negative 150 -???-???-???-???-??? -???-???-???-???-??? -???-???- SM- no efrain durbin, educated about varicella non immune, patient was last and (more content not included)... Normal [facility] Chlamydia/GC RICHARD aptimaon CHLAMY,NUC ACID Negative Normal Negative [facility] Comment on above: Performed By: #### M [id number] #### [facility] [address] [place], [place], [address] GC BY NUC ACID Negative Normal Negative [facility] Comment on above: Result Comment: Perf ormed at: =G - [facility] [address] [place] [id number] Bag Filler Machine Operator: Rose Mary Martins MD, Phone: [phone] Performed By: #### M [id number] #### [facility] [address] [place], [place], [address] Urine Cultureon 01-07-2024 [facility] Mixed Gram Pos Gram Neg Org [place] Count 1000-10,000 MIXC Mixed contaminants. Submit a new specimen if indicated. Normal [facility] Comment on above: Performed By: #### M [id number] #### [facility] [address] [place], [place], [id number] Yard Driver Office Visit Reporton 01-06-2024 Yard Driver Office Visit Report [facility] [address], [address] [place] [address] OFFICE VISIT Date of Service: 01/06/24 MR#: [id number] Acct: [id number] Name: KALLI MORGAN Rep #: [id number] : 1995 Provider: Dr. 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: No Is patient in pain?: No Allergies No Known Allergies Allergy (Verified 01/06/24 10:27) Medications ???Medication ???Instructions ???Recorded ???Confirmed ???Type sjfjdojm-kvm-Wr-FA 1 mg 1 tab PO DAILY supplement 06/16/22 01/06/24 History tablet Last Menstrual Period: 11/06/23 Zika: Zika virus screening: Negative : No PFSH PFSH Medical History Vaginal delivery Acute otitis media, left Acute frontal sinusitis, unspecified Non-smoker Pneumonia Surgical History History of gynecologic surgery Family History Brother Heart disease Marfan syndrome Aunt Pancreatic cancer Social History adopted: No household members: spouse and children number of children: 1 service: No current occupation: [employer] current occupational exposures/hazards: No pets and animals: Yes history of recent travel: No sexually active: Yes Smoking Status: Never smoker alcohol intake: current alcohol intake frequency: holidays/special occasions only details: Not while substance use type: does not use well-balanced diet: daily or most days caffeine: Yes Type: coffee eating out: rarely or never during the past year weight has: remained stable what type of physical activity do you participate in: weight training frequency: 3-4 times per week duration: 30-45 minutes/day roderick/orthodox: Orthodox seatbelt use: always do you feel safe at home: Yes additional social history: : Adrien Peters History 2 Elective abortions Hx Para 1 Spontaneous abortions Hx # Term Pregnancies 1 Ectopic pregnancies Hx # Pregnancies Multiple births # of living children 1 Past Pregnancies Del. Date Name GA/Weeks Outcome Route Bth Weight Gen Labor Lgth Anesthesia Del Locatn Provider FOB 06/18/23 Bañuelos 40 live - full term 9lbs 2oz Male epidural [facility] D r Melissamaria d [place] Delivery Date: 06/18/23 Last Updated by: Susan Somers RN no complications HPI New OB, LMP 11/05, MAURICIO 08/12/24 Details: KALLI MORGAN is a 28 year old who presents for New OB visit. OB Visit MAURICIO Calculator Estimated Delivery Date Method Current WG Current Estimate 08/12/24 LMP (Certain) 8w 5d Estimated Due Date: 08/12/24 Expected Delivery Route/Plan Labor Preferences- CB/BF classes: [] labor support person: [] labor intervention preferences: [] pain management options preferred: [] cut cord/dad catch: [] : [] PP control planned: [] discussed possible routes of delivery and associated risks: [] special requests: [] Specific Issue/Plans Covid status: [] Flu vaccine: [] Tdap vaccine: [] Rhogam: [] LARC form signed: [] Problem list reviewed and updated with the most current plan of care details and appropriate orders placed. Relevant counseling for the gestational age provided. Continue routine care and follow up unless otherwise noted in visit notes/problem list details Initial Weight: Not Recorded Date -???-???-???-???-??? -???-???-???-???-??? -???-???- EGA Weight BP Urine Prot -???-???-???-???-??? -???-???-???-???-??? -???-???- Glucose FHR FuHt Pres Dilation -???-???-???-???-??? -???-???-???-???-??? -???-???- Effaced St Visit Note 01/06/24 -???-???-???-???-??? -???-???-???-???-??? -???-???- 8w 5d 157 lb 129/82 -???-???-???-???-??? -???-???-???-???-??? -???-???- 187 -???-???-???-???-??? -???-???-???-???-??? -???-???- JV- CRL cons istent with LMP. patient very nauseated today so declines pap today. will do next visit. declines medication. taking unisom + B6. declines nipt. Menstrual History Last Menstrual Period: 11/06/23 Reported LMP: definite Normal amount/duration: Yes Frequency in days: 21 On hormonal BC at conception: No hCG+: 11/28/23 Antepartum Record Genetic Screening: Congenital Heart Defect: Other, Neural Tube Defect: Other, Hemoglobinopathy Or Carrier: Other, Cystic Fibrosis: Other, Chromosome Abnormality: Other, Bakari-Sachs: Other, Hemo (more content not included)... Normal [facility] Absolute lymphocyte countOrd ered By: Dr. Morgan on 03-06-2022 Lymphocytes Auto (Unsp spec) [#/Vol] 2.09 10*3/uL 0.83-4.[address] [facility] Basophil percentageOrdered B y: Dr. Morgan on 03-06-2022 Basophils/100 WBC (Bld) 0.3 % 0-1 [facility] Eosinophils/100 WBC (Bld) 0.8 % 0-[address] [facility] Neutrophils (Bld) [#/Vol] 10.3 10*3/uL 2.0-7.[address] [facility] Neutrophils/100 WBC (Bld) 78.7 % 47-[address] [facility] WBC (Bld) [#/Vol] 13.1 10*3/uL 4.4-11.0 [facility] Blood erythrocytes count (nu mber/volume)Ordered By: Dr. Morgan on 03-06-2022 RBC (Bld) [#/Vol] 4.03 10*6/uL 4.2-5.4 [facility] Blood hemoglobin measurement (mass/volume)Ordered By: Dr. Morgan on 03-06-2022 Hemoglobin (Bld) [Mass/Vol] 11.9 g/dL 12.0-15.[address] [facility] Blood lymphocytes/100 leukoc ytesOrdered By: Dr. Morgan on 03-06-2022 Lymphocytes/100 WBC (Bld) 16.0 % 19-[address] [facility] Blood monocytes/100 leukocyt esOrdered By: Dr. Morgan on 03-06-2022 Monocytes/100 WBC (Bld) 3.7 % 0-10 [facility] Blood platelet mean volumeOr dered By: Dr. Morgan on 03-06-2022 Platelet mean volume (Bld) [Entitic vol] 11.0 fL 6.2-12.[address] [facility] Determination of erythrocyte mean corpuscular volume (MCV)Ordered By: Dr. Morgan on 03-06-2022 MCV (RBC) [Entitic vol] 91.6 fL 81-99 [facility] Gestational diabetes screen 1-hour screen with 50g oral glucose loadOrdered By: Dr. Morgan on 03-06-2022 Glucose 1 Hr post 50 g glucose PO [Mass/Vol] 124 mg/dL 70-[address] [facility] Hematocrit Auto (Bld) [Volum e fraction]Ordered By: Dr. Morgan on 03-06-2022 Hematocrit (Bld) [Volume fraction] 36.9 % 37-[address] [facility] - Hematology and Cell countsOrdered By: Dr. Morgan on 03-06-2022 Erythrocyte distribution width (RBC) [Entitic vol] 42.6 fL 35.1-43.[address] [facility] Erythrocyte distribution width (RBC) [Ratio] 12.9 % 11.6-14.[address] [facility] Immature granulocytes/100 WBC (Bld) 0.500 % 0.0-0.[address] [facility] Comment on above: IG% - Immature Granu locytes (promyelocytes, myelocytes and metamyelocytes) > 1% indicates that a LEFT SHIFT is Present. MCH (RBC) [Entitic mass] 29.5 pg 27.0-32.[address] [facility] Nucleated RBC/100 WBC (Bld) [Ratio] 0 % 0-[address] [facility] MCHC Auto (RBC) [Mass/Vol]Or dered By: Dr. Morgan on 03-06-2022 MCHC (RBC) [Mass/Vol] 32.2 g/dL 32-36 [facility] Platelets bldOrdered By: Dr. Morgan on 03-06-2022 Platelets (Bld) [#/Vol] 215 10*3/uL 150-[address] [facility] HIV 1 and HIV-2 antibody ass ay with HIV-1 p24 antigen detectionOrdered By: Dr. Morgan on 12-12-2021 HIV 1+2 Ab+HIV1 p24 Ag IA Ql Non-Reactive Nonreactive [facility] No Panel InformationOrdered By: Dr. Morgan on 12-12-2021 Hepatitis B Surface Antigen Non-Reactive Nonreactive [facility] Hepatitis C Antibody Non-Reactive Nonreactive [facility] Comment on above: Non Reactive: < 0.8 Equivocal: >/= 0.8 to < 1.0 Reactive: >/= 1.0The CDC recommends that a reactive/equivocal HCV antibody result be followed up by the HCV Nucleic Acid Amplificationtest (346882) Rubella IgG Antibody Reactive Nonreactive [facility] Comment on above: Antibody Results Int erpretation of Immune Status Non Reactive Presumed Non-Immune Equivocal Equivocal Reactive Presumed Immune Serum Treponema species anti body detectionOrdered By: Dr. Morgan on 12-12-2021 Treponema sp Ab Ql (S) Non-Reactive [facility] Serum Varicella zoster virus IgG antibody assay by immunoassay (units/volume)Ordered By: Dr. Morgan on 12-12-2021 VZV IgG IA Qn (S) < 135 index Immune >165 [facility] Comment on above: Negative <135 Equivo osiris 135 - 165 Positive >165A positive result generally indicates exposure to thepathogen or administration of specific immunoglobulins,but it is not indication of active infection or stageof disease.Performed at: [facility] Director: Michael Mcintyre PhD, Phone: [phone] Culture, urineOrdered By: Dr Abigail Morgan on 11-16-2021 Bacteria identified Cx Nom (U) Positive [facility] Absolute lymphocyte countOrd ered By: Dr. Morgan on 11-14-2021 Lymphocytes Auto (Unsp spec) [#/Vol] 1.84 10*3/uL 0.83-4.[address] [facility] Basophil percentageOrdered B y: Dr. Morgan on 11-14-2021 Basophils/100 WBC (Bld) 0.3 % 0-1 [facility] Bilirubin [Mass/Vol] 0.20 mg/dL 0.20-1.00 [facility] Comment on above: For patients on eltr ombopag therapy, use of [employer] TBIL is not recommended. Chloride [Moles/Vol] 103 mmol/L 98-107 [facility] Eosinophils/100 WBC (Bld) 1.8 % 0-[address] [facility] Glucose [Mass/Vol] 71 mg/dL 74-106 [facility] Neutrophils (Bld) [#/Vol] 7.6 10*3/uL 2.0-7.[address] [facility] Neutrophils/100 WBC (Bld) 74.2 % 47-[address] [facility] Potassium [Moles/Vol] 3.9 mmol/L 3.5-5.1 [facility] Protein [Mass/Vol] 7.5 g/dL 6.4-8.2 [facility] Sodium [Moles/Vol] 139 mmol/L 136-145 [facility] WBC (Bld) [#/Vol] 10.3 10*3/uL 4.4-11.0 [facility] Blood erythrocytes count (nu mber/volume)Ordered By: Dr. Morgan on 11-14-2021 RBC (Bld) [#/Vol] 4.71 10*6/uL 4.2-5.4 [facility] Blood hemoglobin measurement (mass/volume)Ordered By: Dr. Morgan on 11-14-2021 Hemoglobin (Bld) [Mass/Vol] 13.9 g/dL 12.0-15.[address] [facility] Blood lymphocytes/100 leukoc ytesOrdered By: Dr. Morgan on 11-14-2021 Lymphocytes/100 WBC (Bld) 17.9 % 19-[address] [facility] Blood monocytes/100 leukocyt esOrdered By: Dr. Morgan on 11-14-2021 Monocytes/100 WBC (Bld) 4.6 % 0-10 [facility] Blood platelet mean volumeOr dered By: Dr. Morgan on 11-14-2021 Platelet mean volume (Bld) [Entitic vol] 11.3 fL 6.2-12.[address] [facility] Chlamydia trachomatis rRNA d etection by probe and target amplification methodOrdered By: Dr. Morgan on 11-14-2021 C. trachomatis rRNA RICHARD+probe Ql (Unsp spec) Negative Negative [facility] Determination of erythrocyte mean corpuscular volume (MCV)Ordered By: Dr. Morgan on 11-14-2021 MCV (RBC) [Entitic vol] 87.9 fL 81-99 [facility] Hematocrit Auto (Bld) [Volum e fraction]Ordered By: Dr. Morgan on 11-14-2021 Hematocrit (Bld) [Volume fraction] 41.4 % 37-[address] [facility] Laboratory - Chemistry and C hemistry - challengeOrdered By: Dr. Morgan on 11-14-2021 ALP [Catalytic activity/Vol] 48 U/L 45-[address] [facility] ALT [Catalytic activity/Vol] 17 U/L 13-[address] [facility] CO2 [Moles/Vol] 28.0 mmol/L 21.0-32.[address] [facility] Globulin (S) [Mass/Vol] 3.8 g/dL 2.2-4.2 [facility] Urea nitrogen/Creatinine [Mass ratio] 16.8 mg/mg 10-[address] [facility] - Hematology and Cell countsOrdered By: Dr. Morgan on 11-14-2021 Erythrocyte distribution width (RBC) [Entitic vol] 41.1 fL 35.1-43.[address] [facility] Erythrocyte distribution width (RBC) [Ratio] 12.7 % 11.6-14.[address] [facility] Immature granulocytes/100 WBC (Bld) 1.200 % 0.0-0.[address] [facility] Comment on above: IG% - Immature Granu locytes (promyelocytes, myelocytes and metamyelocytes) > 1% indicates that a LEFT SHIFT is Present. MCH (RBC) [Entitic mass] 29.5 pg 27.0-32.[address] [facility] Nucleated RBC/100 WBC (Bld) [Ratio] 0 % 0-[address] [facility] - Microbiology an d Antimicrobial susceptibilityOrdered By: Dr. Morgan on 11-14-2021 N. gonorrhoeae DNA RICHARD+probe Ql (Unsp spec) Negative Negative [facility] Comment on above: Performed at: =[address] [id number] Director: Rose Mary Martins MD, Phone: [phone] MCHC Auto (RBC) [Mass/Vol]Or dered By: Dr. Morgan on 11-14-2021 MCHC (RBC) [Mass/Vol] 33.6 g/dL 32-36 [facility] No Panel InformationOrdered By: Dr. Morgan on 11-14-2021 Estimated GFR (MDRD) Amer 160 mL/min >[address] [facility] Comment on above: GFR Calc Estimated GFR (MDRD) Non-Af Amer 132 mL/min >[address] [facility] Comment on above: Non- GFR Calc Platelets bldOrdered By: Dr. Morgan on 11-14-2021 Platelets (Bld) [#/Vol] 216 10*3/uL 150-[address] [facility] Serum or plasma albumin anatoly urement (mass/volume)Ordered By: Dr. Morgan on 11-14-2021 Albumin [Mass/Vol] 3.7 g/dL 3.2-5.0 [facility] Serum or plasma albumin/glob ulin mass ratioOrdered By: Dr. Morgan on 11-14-2021 Albumin/Globulin [Mass ratio] 1.0 {ratio} 0.9-2.[address] [facility] Serum or plasma calcium anatoly urement (mass/volume)Ordered By: Dr. Morgan on 11-14-2021 Calcium [Mass/Vol] 8.8 mg/dL 8.5-10.1 [facility] Serum or plasma creatinine m easurement (mass/volume)Ordered By: Dr. Morgan on 11-14-2021 Creatinine [Mass/Vol] 0.60 mg/dL 0.55-1.02 [facility] Comment on above: The validity of the calculated GFR & GFRAA in patients over 70 years has not been determined. Clinical correlation is essential. Serum or plasma urea nitroge n measurement (mass/volume)Ordered By: Dr. Morgan on 11-14-2021 Urea nitrogen [Mass/Vol] 10 mg/dL 7-[address] [facility] Thin prep Papanicolaou smear with manual screeningOrdered By: Dr. Morgan on 11-14-2021 Thin prep Papanicolaou smear with manual screening 10 U/L 15-[address] [facility] Thin prep Papanicolaou smear with manual screening 8 5-[address] [facility] Thin prep Papanicolaou smear with manual screening 140 U/L 84-[address] [facility] Urine creatinine measurement (mass/volume)Ordered By: Dr. Morgan on 11-14-2021 Creatinine (U) [Mass/Vol] 34.20 mg/dL NO RANGE EST. [facility] Urine protein measurement (m ass/volume)Ordered By: Dr. Morgan on 11-14-2021 Protein (U) [Mass/Vol] mg/dL 0.0-11.8 [facility] Urine protein/creatinine mas s ratioOrdered By: Dr. Morgan on 11-14-2021 Protein/Creatinine (U) [Mass ratio] 158 mg/g CRE 0-[address] [facility] CORONAVIRUS PCR [CCL]on 11-25 COVID 19 Result RU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 Negative Normal [facility] Comment on above: Result Comment: Nega tive for COVID19 (SARS CoV2) by PCR. This test was developed and its performance characteristics determined by [facility]'s [facility] [place]. This test has been authorized by FDA under an Emergency Use Authorization (EUA). This test has been validated in accordance with the FDA's Guidance Document Policy for Diagnostics Testing in Laboratories Certified to Perform High Complexity Testing under CLIA prior to Emergency use Authorization for Coronavirus Disease 2019 during the Public Health Emergency issued on April 25, 2019. [facility] [address] [place] [address] Josesito Jones III, M.D. [id number] Performed By: #### [id number] #### [facility],[address] [place] [address] COVID 19 Source RU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 U Normal [facility] Comment on above: Performed By: #### [id number] #### [facility],[address] [place] [id number] Culture, urine Bacteria identified Cx Nom (U) Positive [facility] Work Phone: Vital Signs Date Time Vital Sign Value Performing Clinician Ayah reich 08-05-2024 14:55-0400 Body height 170.18 cm Madisyn ROJAS Work Phone: [facility] 08-05-2024 14:55-0400 Body mass index (BMI) [Ratio] 27.8 kg/m2 Madisyn ROJAS Work Phone: [facility] 08-05-2024 14:55-0400 Body weight 80.51 kg Madisyn ROJAS Work Phone: [facility] 08-05-2024 14:55-0400 Diastolic blood pressure 83 mm[Hg] Madisyn Torres PA Work Phone: [facility] 08-05-2024 14:55-0400 Systolic blood pressure 132 mm[Hg] Madisyn Torres PA Work Phone: [facility] 07-29-2024 11:04-0400 Body mass index (BMI) [Ratio] 27.9 kg/m2 Madisyn Torres PA Work Phone: [facility] 07-29-2024 11:04-0400 Body weight 80.96 kg Madisyn Torres PA Work Phone: [facility] 07-29-2024 11:04-0400 Diastolic blood pressure 87 mm[Hg] Madisyn Torres PA Work Phone: [facility] 07-29-2024 11:04-0400 Systolic blood pressure 118 mm[Hg] Madisyn Torres PA Work Phone: [facility] 07-21-2024 12:55-0400 Body height 170.18 cm Madisyn Torres PA Work Phone: [facility] 07-21-2024 12:55-0400 Body mass index (BMI) [Ratio] 27.9 kg/m2 Madisyn Torres PA Work Phone: [facility] 07-21-2024 12:55-0400 Body weight 80.9 kg Madisyn Torres PA Work Phone: [facility] 07-21-2024 12:55-0400 Diastolic blood pressure 79 mm[Hg] Madisyn Torres PA Work Phone: [facility] 07-21-2024 12:55-0400 Systolic blood pressure 120 mm[Hg] Madisyn Torres PA Work Phone: [facility] 07-07-2024 09:51-0400 Body height 170.18 cm Madisyn Torres PA Work Phone: [facility] 07-07-2024 09:51-0400 Body mass index (BMI) [Ratio] 27 kg/m2 Madisyn Torres PA Work Phone: [facility] 07-07-2024 09:51-0400 Body weight 78.24 kg Madisyn Torres PA Work Phone: [facility] 07-07-2024 09:51-0400 Diastolic blood pressure 76 mm[Hg] Madisyn Torres PA Work Phone: [facility] 07-07-2024 09:51-0400 Systolic blood pressure 116 mm[Hg] Madisyn Torres PA Work Phone: [facility] 06-23-2024 13:12-0400 Body height 170.18 cm Madisyn Torres PA Work Phone: [facility] 06-23-2024 13:12-0400 Body mass index (BMI) [Ratio] 26.2 kg/m2 Madisyn Torres PA Work Phone: [facility] 06-23-2024 13:12-0400 Body weight 75.86 kg Madisyn Torres PA Work Phone: [facility] 06-23-2024 13:12-0400 Diastolic blood pressure 80 mm[Hg] Madisyn Torres PA Work Phone: [facility] 06-23-2024 13:12-0400 Systolic blood pressure 119 mm[Hg] Madisyn Torres PA Work Phone: [facility] 06-17-2024 09:00-0400 SaO2% (BldA) [Mass fraction] 95 % Jane Orellana DO Work Phone: [facility] 06-17-2024 08:03-0400 Body temperature 98.2 [degF] Jane Mariaon DO Work Phone: [facility] 06-17-2024 08:03-0400 Diastolic blood pressure 75 mm[Hg] Jane Orellana DO Work Phone: [facility] 06-17-2024 08:03-0400 Heart rate 110 /min Jane Orellana DO Work Phone: [facility] 06-17-2024 08:03-0400 Respiratory rate 18 /min Jane Orellana DO Work Phone: [facility] 06-17-2024 08:03-0400 Systolic blood pressure 116 mm[Hg] Jnae Orellana DO Work Phone: [facility] 06-16-2024 15:45-0400 Body height 170.2 cm Jane Orellana DO Work Phone: [facility] 06-16-2024 15:45-0400 Body mass index (BMI) [Ratio] 26.94 kg/m2 Jane Orellana DO Work Phone: [facility] 06-16-2024 15:45-0400 Body weight 78.02 kg Jane Orellana DO Work Phone: [facility] 06-15-2024 22:44-0400 Body temperature 98.7 [degF] Madisyn Torres PA Work Phone: [facility] 06-15-2024 22:44-0400 Diastolic blood pressure 75 mm[Hg] Madisyn Torres PA Work Phone: [facility] 06-15-2024 22:44-0400 Heart rate 106 /min Madisyn Torres PA Work Phone: [facility] 06-15-2024 22:44-0400 Respiratory rate 15 /min Madisyn Torres PA Work Phone: [facility] 06-15-2024 22:44-0400 SaO2% (BldA) [Mass fraction] 98 % Madisyn Torres PA Work Phone: [facility] 06-15-2024 22:44-0400 Systolic blood pressure 122 mm[Hg] Madisyn Torres PA Work Phone: [facility] 06-15-2024 18:40-0400 Body mass index (BMI) [Ratio] 26.9 kg/m2 Madisyn Torres PA Work Phone: [facility] 06-15-2024 18:40-0400 Body weight 78.01 kg Madisyn Torres PA Work Phone: [facility] 06-14-2024 22:27-0400 Body temperature 97.7 [degF] Madisyn Torres PA Work Phone: [facility] 06-14-2024 22:27-0400 Diastolic blood pressure 62 mm[Hg] Madisyn Torres PA Work Phone: [facility] 06-14-2024 22:27-0400 Heart rate 105 /min Madisyn Torres PA Work Phone: [facility] 06-14-2024 22:27-0400 Respiratory rate 16 /min Madisyn Torres PA Work Phone: [facility] 06-14-2024 22:27-0400 SaO2% (BldA) [Mass fraction] 96 % Madisyn Torres PA Work Phone: [facility] 06-14-2024 22:27-0400 Systolic blood pressure 109 mm[Hg] Madisyn Torres PA Work Phone: [facility] 06-14-2024 18:35-0400 Body height 170.18 cm Madisyn Torres PA Work Phone: [facility] 06-14-2024 18:35-0400 Body mass index (BMI) [Ratio] 27.1 kg/m2 Madisyn Torres PA Work Phone: [facility] 06-14-2024 18:35-0400 Body weight 78.47 kg Madisyn Torres PA Work Phone: [facility] 06-14-2024 16:47-0400 Diastolic blood pressure 75 mm[Hg] Madisyn Torres PA Work Phone: [facility] 06-14-2024 16:47-0400 Heart rate 95 /min Madisyn Torres PA Work Phone: [facility] 06-14-2024 16:47-0400 Systolic blood pressure 128 mm[Hg] Madisyn Torres PA Work Phone: [facility] 06-14-2024 16:42-0400 Body height 170.18 cm Madisyn Torres PA Work Phone: [facility] 06-14-2024 16:42-0400 Body mass index (BMI) [Ratio] 27.1 kg/m2 Madisyn Torres PA Work Phone: [facility] 06-14-2024 16:42-0400 Body weight 78.47 kg Madisyn Torres PA Work Phone: [facility] 06-14-2024 16:41-0400 Body temperature 99.1 [degF] Madisyn Torres PA Work Phone: [facility] 06-14-2024 16:41-0400 Respiratory rate 16 /min Madisyn Torres PA Work Phone: [facility] 06-09-2024 10:14-0400 Body mass index (BMI) [Ratio] 27.2 kg/m2 Madisyn Torres PA Work Phone: [phone] [place] [address] 06-09-2024 10:14-0400 Body weight 78.92 kg Madisyn Torres PA Work Phone: [facility] 06-09-2024 10:14-0400 Diastolic blood pressure 77 mm[Hg] Madisyn Torres PA Work Phone: [facility] 06-09-2024 10:14-0400 Systolic blood pressure 121 mm[Hg] Madisyn Torres PA Work Phone: [facility] 05-26-2024 13:30-0400 Body height 170.18 cm Madisyn Torres PA Work Phone: [facility] 05-26-2024 13:30-0400 Body mass index (BMI) [Ratio] 27.1 kg/m2 Madisyn Torres PA Work Phone: [facility] 05-26-2024 13:30-0400 Body weight 78.52 kg Madisyn Torres PA Work Phone: [facility] 05-26-2024 13:30-0400 Diastolic blood pressure 72 mm[Hg] Madisyn Torres PA Work Phone: [facility] 05-26-2024 13:30-0400 Systolic blood pressure 118 mm[Hg] Madisyn Torres PA Work Phone: [facility] 04-27-2024 13:44-0500 Body mass index (BMI) [Ratio] 26.6 kg/m2 Madisyn Torres PA Work Phone: [facility] 04-27-2024 13:44-0500 Body weight 77.11 kg Madisyn Torres PA Work Phone: [facility] 04-27-2024 13:44-0500 Diastolic blood pressure 82 mm[Hg] Madisyn Torres PA Work Phone: [facility] 04-27-2024 13:44-0500 Systolic blood pressure 127 mm[Hg] Madisyn Torres PA Work Phone: [phone] [place] [address] 03-25-2024 08:30-0500 Body mass index (BMI) [Ratio] 25.3 kg/m2 Madisyn Torres PA Work Phone: [facility] 03-25-2024 08:30-0500 Body weight 73.48 kg Madisyn Torres PA Work Phone: [facility] 03-25-2024 08:30-0500 Diastolic blood pressure 70 mm[Hg] Madisyn Torres PA Work Phone: [facility] 03-25-2024 08:30-0500 Systolic blood pressure 112 mm[Hg] Madisyn Torres PA Work Phone: [facility] 03-02-2024 08:40-0500 Body mass index (BMI) [Ratio] 25 kg/m2 Madisyn Torres PA Work Phone: [facility] 03-02-2024 08:40-0500 Body weight 72.68 kg Madisyn Torres PA Work Phone: [facility] 03-02-2024 08:40-0500 Diastolic blood pressure 80 mm[Hg] Madisyn Torres PA Work Phone: [facility] 03-02-2024 08:40-0500 Systolic blood pressure 122 mm[Hg] Madisyn Torres PA Work Phone: [facility] 02-04-2024 11:01-0500 Body mass index (BMI) [Ratio] 24.9 kg/m2 Madisyn Torres PA Work Phone: [facility] 02-04-2024 11:01-0500 Body weight 72.17 kg Madisyn Torres PA Work Phone: [facility] 02-04-2024 11:01-0500 Diastolic blood pressure 81 mm[Hg] Madisyn Torres PA Work Phone: [facility] 02-04-2024 11:01-0500 Systolic blood pressure 122 mm[Hg] Madisyn Torres PA Work Phone: [facility] Encounters Encounter Date Encounter Type Care Provider Facility Start: 08-05-2024 End: 08-05-[address] Leonela Montejo DO -[facility] Work Phone: Start: 08-05-2024 End: 08-05-2024 ambulatory Madisyn Torres PA Work Phone: [facility] Work Phone: Start: 07-31-2024 ambulatory Madisyn Torres PA Facil ity:[facility] Start: 07-29-2024 End: 07-29-2024 Patient encounter procedure Tova Prather CNM -[facility] Start: 07-29-2024 End: 07-29-2024 ambulatory Madisyn Torres PA Facility:[facility] Start: 07-21-2024 End: 07-21-2024 ambulatory Madisyn Torres PA Work Phone: [facility] Work Phone: Start: 07-21-2024 End: 07-21-2024 Patient encounter procedure Tova Prather CNM -Laboratory Specimen Work Phone: Start: 07-21-2024 End: 07-21-2024 Patient encounter procedure Tova Prather CNM -[facility] Work Phone: Start: 07-21-2024 End: 07-21-2024 ambulatory Madisyn Torres PA Work Phone: [facility] Work Phone: Start: 07-21-2024 End: 07-21-2024 ambulatory Madisyn Torres PA Facility:[facility] Start: 07-07-2024 End: 07-07-2024 ambulatory Madisyn Torres PA Work Phone: [facility] Work Phone: Start: 07-07-2024 End: 07-07-[address] Lali Bro MD -Laboratory Specimen Work Phone: Start: 07-07-2024 End: 07-07-[address] Lali Bro MD -[facility] Work Phone: Start: 07-07-2024 End: 07-07-2024 ambulatory Madisyn Torres PA Work Phone: [facility] Work Phone: Start: 07-07-2024 End: 07-07-2024 ambulatory Madisyn Torres PA Facility:[facility] Start: 07-01-2024 End: 07-01-2024 ambulatory Madisyn Torres PA Work Phone: [facility] Work Phone: Start: 07-01-2024 End: 07-01-2024 Patient encounter procedure Tova Prather CNM -[facility] Work Phone: Start: 07-01-2024 End: 07-01-2024 ambulatory Madisyn Torres PA Facility:[facility] Start: 06-23-2024 End: 06-23-2024 Patient encounter procedure Tova Prather CNM -[facility] Work Phone: Start: 06-23-2024 End: 06-23-2024 ambulatory Madisyn Torres PA Facility:[facility] Start: 06-15-2024 End: 06-17-2024 Evaluation and management of inpatient Jane Orellana Work Phone: [facility] Unit H2 Comment on above: Acute appendicitis a ffecting (Primary Dx) Start: 06-15-2024 End: 06-15-2024 Emergency department patient visit Dr. Hugo Stiles DO -Emergency Department Work Phone: Start: 06-14-2024 End: 06-14-2024 Emergency department patient visit Madisyn Torres PA Work Phone: -Emergency Department Work Phone: Start: 06-14-2024 ambulatory Madisyn Torres PA Facil ity:[facility] Start: 06-14-2024 Non-patient / Non-visit Tova Boateng ms [facility] Start: 06-14-2024 End: 06-14-2024 ambulatory Madisyn Torres PA Work Phone: [facility] Work Phone: Start: 06-14-2024 End: 06-14-2024 Patient encounter procedure Tova Prather [facility] Work Phone: Start: 06-09-2024 End: 06-09-[address] Leonela Montejo DO -[facility] Work Phone: Start: 06-09-2024 End: 06-09-2024 ambulatory Madisyn Torres PA Facility:[facility] Start: 05-26-2024 End: 05-26-2024 Patient encounter procedure Emely MOSCOSO -[facility] Work Phone: Start: 05-26-2024 End: 05-26-2024 ambulatory Madisyn Torres PA Work Phone: [facility] Work Phone: Start: 05-26-2024 End: 05-26-2024 ambulatory Madisyn Torres PA Facility:[facility] Start: 04-27-2024 End: 04-27-2024 Patient encounter procedure Tova Prather CNM -[facility] Work Phone: Start: 04-27-2024 End: 04-27-2024 ambulatory Madisyn Torres PA Facility:[facility] Start: 03-25-2024 End: 03-25-2024 Patient encounter procedure Emely Boone RU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-C -[facility] Work Phone: Start: 03-25-2024 End: 03-25-2024 ambulatory Madisyn Torres PA Facility:[facility] Start: 03-24-2024 End: 03-24-[address] Lali Bro MD -Ultrasound, [facility] Work Phone: Start: 03-24-2024 End: 03-24-2024 ambulatory Lali Bro Facility:[facility] Start: 03-02-2024 End: 03-02-2024 Patient encounter procedure Emely Boone RU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-C -[facility] Work Phone: Start: 03-02-2024 End: 03-02-2024 ambulatory Madisyn Torres PA Facility:[facility] Start: 03-02-2024 End: 03-02-2024 ambulatory Emely Boone NP Facility:[facility] Start: 02-04-2024 End: 02-04-[address] Lali Bro MD -[facility] Work Phone: Start: 02-04-2024 End: 02-04-2024 ambulatory Madisyn Torres PA Facility:[facility] Start: 01-06-2024 End: 01-06-2024 ambulatory Madisyn Torres PA Facility:[facility] Start: 01-06-2024 End: 01-06-2024 ambulatory Madisyn Torres PA Facility:[facility] Start: 12-27-2023 ambulatory Madisyn Torres PA Facil ity:[facility] Start: 03-06-2022 End: 03-06-[address] [facility] Work Phone: Start: 03-06-2022 End: 03-06-2022 Patient encounter procedure [facility]-Laboratory, [place] backup operator Off Start: 12-12-2021 End: 12-12-[address] [facility] Work Phone: Start: 12-12-2021 End: 12-12-2021 Patient encounter procedure [facility]-Laboratory, [place] backup operator Off Start: 11-14-2021 End: 11-14-[address] [facility] Work Phone: Start: 11-14-2021 End: 11-14-2021 Patient encounter procedure [facility]-Laboratory, [place] backup operator Off Start: 12-08-2019 End: 12-08-2019 Patient encounter procedure HAYLEY Neely JUSTIN [facility] Procedures Date Procedure Procedure Detail Performing Clinician Start: 07-21-2024 Beta-hemolytic Streptococcus culture Madisyn ROJAS Work Phone: Start: 07-07-2024 Gram stain microscopy M sonia ROJAS Work Phone: Start: 07-07-2024 End: 07-07-2024 Microbial culture, routine Madisyn ROJAS Work Phone: Start: 07-01-2024 Ultrasound scan for growth Madisyn ROJAS Work Phone: Start: 06-16-2024 Basic metabolic pane l calcium total Joel Orta MD Work Phone: Start: 06-16-2024 Us preg uterus w/det ail jamia 1st gestation Miriam Zaldivar DO Work Phone: Start: 06-16-2024 End: 06-16-2024 Laparoscopic appendectomy Shawn reyes MD Work Phone: Start: 06-16-2024 Bacteria identified in Blood by Culture Hubert Haskins MD Work Phone: Start: 06-16-2024 Adult depression scr eening assessment Jane Orellana DO Work Phone: Start: 06-16-2024 Antibody screen [facility] Comment on above: Performed By: #### L [id number] #### Senior Ux Designer: MONTANA GILLETTE ([phone]) [facility] ([facility]) [address] Start: 06-16-2024 ABO and Rh group [Ty pe] in Blood by Confirmatory method Miriam Zaldivar DO Work Phone: Start: 06-16-2024 End: 06-16-2024 Blood typing serologic abo Miriam de souza DO Work Phone: Start: 06-16-2024 Comprehensive metabo lic panel Miriam Zaldivar DO Work Phone: Start: 06-16-2024 End: 06-16-2024 Iaad ia hepatitis b surface antigen Miriam Zaldivar DO Work Phone: Start: 06-15-2024 MRI of abdomen witho ut contrast Madisyn ROJAS Work Phone: Start: 06-15-2024 Estimated creatinine clearance Madisyn Torres PA Work Phone: Start: 06-15-2024 Urnls dip stick/tabl et reagent auto microscopy Madisyn Chavezer PA Work Phone: Start: 06-14-2024 Estimated creatinine clearance Madisyn Chavezer PA Work Phone: Start: 06-14-2024 Computed tomography of abdomen and pelvis with contrast Madisyn ROJAS Work Phone: Start: 06-14-2024 Urnls dip stick/tabl et reagent auto microscopy Madisyn Chavezer PA Work Phone: Start: 05-26-2024 Serologic test for syphilis Madisyn Torres PA Work Phone: Start: 03-24-2024 Ultrasonography in f irst trimester Madisyn Torres PA Work Phone: Urine culture Urine culture Plan of Treatment Date Care Activity Detail Author Start: 12-01-2047 Zoster Vaccines (1 of 2) Zoster Vacc selena (1 of 2) [facility] Start: 06-16-2025 Depression Screening Depression Scre ening [facility] Start: 10-26-2024 Influenza vaccination Influenz a Vaccine (Season Ended) [facility] Start: 08-12-2024 ambulatory Ambulatory Facility:[facility] Start: 06-15-2024 [facility] Start: 06-14-2024 [facility] Start: 06-14-2024 Nonstress test [facility] Start: 06-14-2024 Obstetric monitoring [facility] Start: 06-14-2024 Vital signs measurements [facility] Start: 06-14-2024 [facility] Start: 06-14-2024 Iv infusion hydratio n initial 31 min-1 hour HYDRATION IV INFUSION INIT [facility] Start: 10-27-2023 COVID-19 Vaccine ( season) COVID-19 Vaccine ( season) [facility] Start: 2018 Screening for malign ant neoplasm of cervix Pap Smear [facility] Start: 2016 DTaP/Tdap/Td Vaccine s (1 - Tdap) DTaP/Tdap/Td Vaccines (1 - Tdap) [facility] Start: 2016 Hepatitis B Vaccines (1 of 3 - 19+ 3-dose series) Hepatitis B Vaccines (1 of 3 - 19+ 3-dose series) [facility] Start: 2012 HPV Vaccines (1 - 3- dose series) HPV Vaccines (1 - 3-dose series) [facility] Start: 2010 Varicella vaccination Varicell a Vaccines (1 of 2 - 13+ 2-dose series) [facility] Start: 1998 MMR Vaccines (1 of 1 - Standard series) MMR Vaccines (1 of 1 - Standard series) [facility] Bacteria identified in Blood by Culture [facility] End: 06-16-2024 Bacteria identified in Urine by Culture Urine culture Microbiology STAT STAT (Lab) for 1 Occurrences starting 06/16/2024 until 06/16/2024, 1 completed [facility] Work Phone: Comment on above: STAT (Lab) for 1 Occ urrences starting 06/16/2024 until 06/16/2024, 1 completed Bacteria identified in Urine by Culture Urine culture Microbiology STAT 06/16/2024 1:50 AM EDT [facility] End: 06-16-2024 Hepatitis B Core Antibody, Total Hepatitis B Core Antibody, Total Lab Routine Once (Lab) for 1 Occurrences starting 06/16/2024 until 06/16/2024 [facility] Comment on above: Once (Lab) for 1 Occ urrences starting 06/16/2024 until 06/16/2024 Hepatitis B Core Antibody, Total Hepatitis B Core Antibody, Total Lab Routine 06/16/2024 1:06 AM EDT [facility] Patient Education ED Understanding Coliti s [facility] Work Phone: Patient referral [facility] Work Phone: Streptococcus agalac tiae [Presence] in Unspecified specimen by Organism specific culture [facility] Tissue exam [facility] Sy stem Work Phone: Comment on above: Release Upon Orderin g for 1 Occurrences starting 06/16/2024, 1 completed Ultrasound scan for growth [facility] Ultrasound scan for growth [facility] Payers Date Payer Category Payer Unknown 2023 Self-pay [id number] 2023 Unknown [id number] 2020 Unknown 0 [id number] 2020 Unknown [id number] 1997 Unknown [id number] 2.16.84 [id number] Unknown [id number] Unknown [employer] [id number] Unknown [id number] 2.16.8 [id number] Unknown [id number] 2.16.8 [id number] Unknown [id number] 2.16.8 [id number] Unknown [id number] 2.16.8 [id number] Unknown [id number] 2.16.8 [id number] Unknown [id number] 2.16.8 [id number] Unknown [id number] 2.16.8 [id number] Unknown [id number] 2.16.8 [id number] Unknown [id number] 2.16.8 [id number] Unknown [id number] 2.16.8 [id number] Unknown [id number] 2.16.8 [id number] Unknown [id number] 2.16.8 40.1.199004.3.579.2.462 Unknown [id number] 2.16.8 40.1.603309.3.579.2.462 Unknown [id number] 2.16.8 40.1.346838.3.579.2.462 Unknown [id number] 2.16.8 40.1.789649.3.579.2.462 Unknown [id number] 2.16.8 40.1.558424.3.579.2.462 Unknown [id number] 2.16.8 40.1.719661.3.579.2.462 Unknown [id number] 2.16.8 40.1.080717.3.579.2.462 Unknown [id number] 2.16.8 40.1.681024.3.579.2.462 Unknown [id number] 2.16.8 40.1.651329.3.579.2.462 Unknown [id number] 2.16.8 40.1.036066.3.579.2.462 Unknown [id number] 2.16.8 40.1.327829.3.579.2.462 Unknown [id number] 2.16.8 40.1.639235.3.579.2.462 Unknown [id number] 2.16.8 40.1.456638.3.579.2.462 Unknown [id number] 2.16.8 40.1.899272.3.579.2.462 Unknown [id number] 2.16.8 40.1.511510.3.579.2.462 Social History Date Type Detail Facility Start: 07-10-2021 End: 07-10-2021 Tobacco smoking status NHIS Unknown if ever smoked [facility] Start: 1995 Sex Assigned At Female W [facility] Start: 12-27-2023 End: 06-15-2024 Tobacco smoking status NHIS Never smoked tobacco (finding) [facility] Start: 06-02-2024 End: 06-15-2024 Sex Female (finding) [facility] Start: 06-16-2024 Tobacco use and exposure Smoke less tobacco non-user [facility] Start: 06-16-2024 Alcoholic beverage intake Ex-drinker (finding) [facility] Start: 06-16-2024 History of Social function [facility] Start: 06-16-2024 Humiliation, Afraid, Rape, and Kick questionnaire [HARK] [facility] Within the last year , have you been afraid of your partner or ex-partner? No [facility] In the past 12 month s, has lack of transportation kept you from medical appointments or from getting medications? No [facility] Start: 11-19-2023 [facility] Start: 1995 Sex assigned at Not on file S [facility] Clinical Notes 02-04-2024 to 08-05-2024 Note Date & Type Note Facility 08-05-2024 Progress note [facility] 08-05-2024 Progress note Note Date/Time August 05, 2024 3:36pm [facility] [address], [address] [place] [address] OFFICE VISIT Date of Service: 08/05/24 MR#: [id number] Acct: [id number] Name: KALLI MORGAN Rep #: [id number] : 1995 Provider: Dr. 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 Is patient in pain?: No Allergies No Known Allergies Allergy (Verified 08/05/24 14:55) Medications ?Medication ?Instructions ?Recorded ?Confirmed ?Type hoyjcmet-asl-Wo-FA 1 mg 1 tab PO DAILY supple ment 06/16/22 08/05/24 History tablet Last Menstrual Period: 11/06/23 Zika: Zika virus screening: Negative : No PFSH PFSH Medical History Vaginal delivery Acute otitis media, left Acute frontal sinusitis, unspecified Non-smoker Pneumonia Surgical History S/P appendectomy History of gynecologic surgery Family History Brother Heart disease Marfan syndrome Aunt Pancreatic cancer Social History adopted: No household members: spouse and children number of children: 1 current occupation: [employer] current occupational exposures/hazards: No pets and animals: Yes history of recent travel: No sexually active: Yes Smoking Status: Never smoker alcohol intake: current alcohol intake frequency: holidays/special occasions only details: Not while substance use type: does not use well-balanced diet: daily or most days caffeine: Yes Type: coffee eating out: rarely or never during the past year weight has: remained stable what type of physical activity do you participate in: weight training frequency: 3-4 times per week duration: 30-45 minutes/day roderick/orthodox: Orthodox seatbelt use: always do you feel safe at home: Yes additional social history: : Adrien Peters History 2 Elective abortions Hx Para 1 Spontaneous abortions Hx # Term Pregnancies 1 Ectopic pregnancies Hx # Pregnancies Multiple births # of living children 1 Past Pregnancies Del. Date Name GA/Weeks Outcome Route Bth Weight Infant Gen Labor Lgth An esthesia Del Locatn Provider FOB 06/18/23 Bañuelos 40 live - full term 9lbs 2oz Male ep idural [facility] Dr Melissa Morgan Adrien Delivery Date: 06/18/23 Last Updated by: Susan Somers RN no complications HPI 38wk ob Details: KALLI MORGAN is a 28 year old who presents for routine OB visit. OB Visit MAURICIO Calculator Estimated Delivery Date Method Current WG Current Estimate 08/12/24 LMP (Certain) 39w 0d Other Estimates 08/11/24 Ultrasound #1 39w 1d Expected Delivery Route/Plan Labor Preferences- CB/BF classes: no labor support person: Adrien labor intervention preferences: [] pain management options preferred: epidural cut cord/dad catch: cord : yes PP control planned: discussed discussed possible routes of delivery and associated risks: [] special requests: [] Specific Issue/Plans Covid status: [] Flu vaccine: [] Tdap vaccine: declines Rhogam: na LARC form signed: yes Problem list reviewed and updated with the most current plan of care details and appropriate orders placed. Relevant counseling for the gestational age provided. Continue routine care and follow up unless otherwise noted in visit notes/problem list details Initial Weight: Not Recorded Date -?-?-?-?-?-?-?-?-?-?-?-?- EGA Weight BP Urine Prot -?-?-?-?-?-?-?-?-?-?-?-?- Glucose FHR FuHt Pres Dilation -?-?-?-?-?-?-?-?-?-?-?-?- Effaced St Visit Note 01/06/24 -?-?-?-?-?-?-?-?-?-?-?-?- 8w 5d 157 lb 129/82 -?-?-?-?-?-?-?-?-?-?-?-?- 187 -?-?-?-?-?-?-?-?-?-?--?-?- JV- CRL consiste nt with LMP. patient very nauseated today so declines pap today. will do next visit. declines medication. taking unisom + B6. declines nipt. 02/04/24 -?-?-?-?-?-?-?-?-?-?-?-?- 12w 6d 159 lb 2 oz 122/81 Nega tive -?-?-?-?-?-?-?-?-?-?-?-?- Negative 150 -?-?-?-?-?-?-?-?-?-?-?-?- SM- no vb andrew marks, educated about varicella non immune, patient was last and declined immunization after. 03/02/24 -?-?-?-?-?-?-?-?-?-?-?-?- 16w 5d 160 lb 4 oz 122/80 Nega tive -?-?-?-?-?-?-?-?-?-?-?-?- Negative 164 -?-?-?-?-?-?-?-?-?-?-?-?- MH-No VB, LOF. N o flutters yet. Will get labs today. US scheduled 03/25/24 -?-?-?-?-?-?-?-?-?-?-?-?- 20w 0d 162 lb 112/70 Negative -?-?-?-?-?-?-?-?-?-?-?-?- Negative 148 -?-?-?-?-?-?-?-?-?-?-?-?- MH-NO VB, LOF. G ood FM. anatomy US yesterday/results pending 04/27/24 -?-?-?-?-?-?-?-?-?-?-?-?- 24w 5d 170 lb 127/82 Negative -?-?-?-?-?-?-?-?-?-?-?-?- Negative 155 25 -?-?-?-?-?-?-?-?-?-?-?-?- KW- no vb/lof/ct x. good fm. 28 week labs discussed 05/26/24 -?-?-?-?-?-?-?-?-?-?-?-?- 28w 6d 173 lb 2 oz 118/72 Nega tive -?-?-?-?-?-?-?-?-?-?-?-?- Negative 146 29 -?-?-?-?-?-?-?-?-?-?-?-?- MH-No VB, LOF. G ppd FM. 28 wk labs pending. Larc. Declines tdap 06/09/24 -?-?-?-?-?-?-?-?-?-?-?-?- 30w 6d 174 lb 121/77 Negative -?-?-?-?-?-?-?-?-?-?-?-?- Negative 140 30 -?-?-?-?-?-?-?-?-?-?-?-?- JV- no lof, vagi nal bleeding, or dec fm. normal glucola. hg 11.1. 06/23/24 -?-?-?-?-?-?-?-?-?-?-?-?- 32w 6d 167 lb 4 oz 119/80 Nega tive -?-?-?-?-?-?-?-?-?-?-?-?- Negative 145 31 -?-?-?-?-?-?-?-?-?-?-?-?- kw- no vb/lof/ct x. good fm. had appendicitis and had surgery last week. will get US scheduled for follow up placenta. 07/07/24 -?-?-?-?-?-?-?-?-?-?-?-?- 34w 6d 172 lb 8 oz 116/76 Nega tive -?-?-?-?-?-?-?-?-?-?-?-?- Negative 140 34 -?-?-?-?-?-?-?-?-?-?-?-?- SM- open incisio n in upper abdomen with white drainage after dermbond removed, no erythema or significant tenderness- reviewed precautions to watch and keflex ordered jjust in case 07/21/24 -?-?-?-?-?-?-?-?-?-?-?-?- 36w 6d 178 lb 6 oz 120/79 Nega tive -?-?-?-?-?-?-?-?-?-?-?-?- Negative 125 36 0.5 -?-?-?-?-?-?-?-?-?-?-?-?- -2 KW- no v b/lof/ctx. good fm. GBS today. no concerns. upper incision healing. 07/29/24 -?-?-?-?-?-?-?-?-?-?-?-?- 38w 0d 178 lb 8 oz 118/87 Nega tive -?-?-?--?-?-?-?-?-?-?-?-?- Negative 130 37 1.5 -?-?-?-?-?-?-?-?-?-?-?-?- 60 -2 KW- no vb/ lof/ctx. good fm. KW- no vb/lof/ctx. good fm. has follow up growth US scheduled for 08/0208/05/24 -?-?-?-?-?-?-?-?-?-?-?-?- 39w 0d 177 lb 8 oz 132/83 -?-?-?-?-?-?-?-?-?-?-?-?- 135 37.5 Cephalic 1.5 -?-?-?-?-?-?-?-?-?-?-?-?- 60 -2 JV- pt moreno s not want to do a repeat us (for AC 97th%) and it is likely appropriate since is not measuring large. Membrane sweep today. ACOG First Trimester First Trimester: Discussed Second Trimester Second Trimester: Signs and Symptoms of Labor, Reproductive Life Planning & Contreception and Care Planning; Discussed Tobacco Cessation, Discussed Depression/Anxiety and Discussed Intimate Partner Violence Third Trimester Third Trimester: Pain Management Plans, Labor support person(s), Immediate Larc, Circumcision preference, Signs and Symptoms of Preeclampsia, Feeding No and Family Medical Leave or Disability Forms Coding Level of Care Code OB Routine Diagnoses Open abdominal incision with drainage T81.321A History of appendicitis Z87.19 Family history of Marfan syndrome Z82.79 Encounter for supervision of other normal in third trimester Z34.83 Normal : other normal Trimester: third trimester 39 weeks gestation of Z3A.39 Weeks of gestation: 39 weeks Assessment and Plan Assessment and Plan (1) Open abdominal incision with drainage: Status: Acute (2) History of appendicitis: Status: Acute Comment: 31 weeks (3) Family history of Marfan syndrome: Status: Acute Comment: Pt's brother...Pt has been tested and does NOT have (4) Supervision of normal : Status: Acute Qualifiers: Normal : other normal Trimester: third trimester Qualified Code(s): Z34.83 - Encounter for supervision of other normal , third trimester Comment: PRR, , MAURICIO 08/12/24, PC: Sarmad, : Adrien (5) : Status: Acute Qualifiers: Weeks of gestation: 39 weeks Qualified Code(s): Z3A.39 - 39 weeks gestation of Comment: GBS neg, Discussed genetic/carrier testing AFP - declines, nl anatomy Orders: Orders POC Urinalysis 2 Dip (Clinic) Today 08/05/24 1536 <Electronically signed by Leonela Gallegos DO> Date _ Leonela Montejo DO [facility] Signature: Date (if applicable) CC: ~ [facility] Work Phone: [phone]) [phone] 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 Is patient in pain?: No Allergies No Known Allergies Allergy (Verified 07/21/24 12:55) Medications ?Medication ?Instructions ?Recorded ?Confirmed ?Type pgqaxtno-wxk-Ah-FA 1 mg 1 tab PO DAILY supple ment 06/16/22 07/21/24 History tablet Last Menstrual Period: 11/06/23 : No PFSH PFSH Medical History Vaginal delivery Acute otitis media, left Acute frontal sinusitis, unspecified Non-smoker Pneumonia Surgical History S/P appendectomy History of gynecologic surgery Family History Brother Heart disease Marfan syndrome Aunt Pancreatic cancer Social History adopted: No household members: spouse and children number of children: 1 current occupation: [employer] current occupational exposures/hazards: No pets and animals: Yes history of recent travel: No sexually active: Yes Smoking Status: Never smoker alcohol intake: current alcohol intake frequency: holidays/special occasions only details: Not while substance use type: does not use well-balanced diet: daily or most days caffeine: Yes Type: coffee eating out: rarely or never during the past year weight has: remained stable what type of physical activity do you participate in: weight training frequency: 3-4 times per week duration: 30-45 minutes/day roderick/orthodox: Orthodox seatbelt use: always do you feel safe at home: Yes additional social history: : Adrien Peters History 2 Elective abortions Hx Para 1 Spontaneous abortions Hx # Term Pregnancies 1 Ectopic pregnancies Hx # Pregnancies Multiple births # of living children 1 Past Pregnancies Del. Date Name GA/Weeks Outcome Route Bth Weight Infant Gen Labor Lgth Anesthesia Del Locatn Provider FOB 06/18/23 Bañuelos 40 live - full term 9lbs 2oz Male ep idural [facility] Dr Melissa Morgan Adrien Delivery Date: 06/18/23 Last Updated by: Susan Somers, RN no complications HPI 36 wk ob Details: KALLI MORGAN is a 28 year old who presents for routine OB visit. OB Visit MAURICIO Calculator Estimated Delivery Date Method Current WG Current Estimate 08/12/24 LMP (Certain) 36w 6d Other Estimates 08/11/24 Ultrasound #1 37w 0d Expected Delivery Route/Plan Labor Preferences- CB/BF classes: no labor support person: Adrien labor intervention preferences: [] pain management options preferred: epidural cut cord/dad catch: cord : yes PP control planned: discussed discussed possible routes of delivery and associated risks: [] special requests: [] Specific Issue/Plans Covid status: [] Flu vaccine: [] Tdap vaccine: declines Rhogam: na LARC form signed: yes Problem list reviewed and updated with the most current plan of care details and appropriate ordersplaced. Relevant counseling for the gestational age provided. Continue routine care and follow up unless otherwise noted in visit notes/problem list details Initial Weight: Not Recorded Date -?-?-?-?-?-?-?-?-?-?-?-?- EGA Weight BP Urine Prot -?-?-?-?-?-?-?-?-?-?-?-?- Glucose FHR FuHt Pres Dilation -?-?-?-?-?-?-?-?-?-?-?-?- Effaced St Visit Note 01/06/24 -?-?-?-?-?-?-?-?-?-?-?-?- 8w 5d 157 lb 129/82 -?-?-?-?-?-?-?-?-?-?-?-?- 187 -?-?-?-?-?-?-?-?-?-?-?-?- JV- CRL consiste nt with LMP. patient very nauseated today so declines pap today. will do next visit. declines medication. taking unisom + B6. declines nipt. 02/04/24 -?-?-?-?-?-?-?-?-?-?-?-?- 12w 6d 159 lb 2 oz 122/81 Nega tive -?-?-?-?-?-?-?-?-?-?-?-?- Negative 150 -?-?-?-?-?-?-?-?-?-?-?-?- SM- no vb andrew marks, educated about varicella non immune, patient was last and declined immunization after. 03/02/24 -?-?-?-?-?-?-?-?-?-?-?-?- 16w 5d 160 lb 4 oz 122/80 Nega tive -?-?-?-?-?-?-?-?-?-?-?-?- Negative 164 -?-?-?-?-?-?-?-?-?-?-?-?- MH-No VB, LOF. N o flutters yet. Will get labs today. US scheduled 03/25/24 -?-?-?-?-?-?-?-?-?-?-?-?- 20w 0d 162 lb 112/70 Negative -?-?-?-?-?-?-?-?-?-?-?-?- Negative 148 -?-?-?-?-?-?-?-?-?-?-?-?- MH-NO VB, LOF. G ood FM. anatomy US yesterday/results pending 04/27/24 -?-?-?-?-?--?-?-?-?-?-?-?- 24w 5d 170 lb 127/82 Negative -?-?-?-?-?-?-?-?-?-?-?-?- Negative 155 25 -?-?-?-?-?-?-?-?-?-?-?-?- KW- no vb/lof/ct x. good fm. 28 week labs discussed 05/26/24 -?-?-?-?-?-?-?-?-?-?-?-?- 28w 6d 173 lb 2 oz 118/72 Nega tive -?-?-?-?-?-?-?-?-?-?-?-?- Negative 146 29 -?-?-?-?-?-?-?-?-?-?-?-?- MH-No VB, LOF. G ppd FM. 28 wk labs pending. Larc. Declines tdap 06/09/24 -?-?-?-?-?-?-?-?-?-?-?-?- 30w 6d 174 lb 121/77 Negative -?-?-?-?-?-?-?-?-?-?-?-?- Negative 140 30 -?-?-?-?-?-?-?-?-?-?-?-?- JV- no lof, vagi nal bleeding, or dec fm. normal glucola. hg 11.1. 06/23/24 -?-?-?-?-?-?-?-?-?-?-?-?- 32w 6d 167 lb 4 oz 119/80 -?-?-?-?-?-?-?-?-?-?-?-?- 145 31 -?-?-?-?-?-?-?-?-?-?-?-?- kw- no vb/lof/ct x. good fm. had appendicitis and had surgery last week. will get US scheduled for follow up placenta. 07/07/24 -?-?-?-?-?-?-?-?-?-?-?-?- 34w 6d 172 lb 8 oz 116/76 Nega tive -?-?-?-?-?-?-?-?-?-?-?-?- Negative 140 34 -?-?-?-?-?-?-?-?-?-?-?-?- SM- open incisio n in upper abdomen with white drainage after dermbond removed, no erythema or significant tenderness- reviewed precautions to watch and keflex ordered jjust in case 07/21/24 -?-?-?-?-?-?-?-?-?-?-?-?- 36w 6d 178 lb 6 oz 120/79 Nega tive -?-?-?--?-?-?-?-?-?-?-?-?- Negative 125 36 0.5 -?-?-?-?-?-?-?-?-?-?-?-?- -2 KW- no v b/lof/ctx. good fm. GBS today. no concerns. upper incision healing. ACOG First Trimester First Trimester: Discussed Second Trimester Second Trimester: Signs and Symptoms of Labor, Reproductive Life Planning & Contreception and Care Planning; Discussed Tobacco Cessation, Discussed Depression/Anxiety and Discussed Intimate Partner Violence Third Trimester Third Trimester: Pain Management Plans, Labor support person(s), Immediate Larc, Circumcision preference, Signs and Symptoms of Preeclampsia, Feeding No and Family Medical Leave or Disability Forms ROS Const Reports system reviewed and no additional complaints, except as documented Eyes Reports system reviewed and no additional complaints, except as documented ENT Reports system reviewed and no additional complaints, except as documented Card Reports system reviewed and no additional complaints, except as documented Resp Reports system reviewed and no additional complaints, except as documented GI Reports system reviewed and no additional complaints, except as documented, Denies nausea and Denies vomiting Reports system reviewed and no additional complaints, except as documented Musc Reports system reviewed and no additional complaints, except as documented Skin/Breast Reports system reviewed and no additional complaints, except as documented Neuro Yes system reviewed and no additional complaints, except as documented Psych Reports system reviewed and no additional complaints, except as documented Endo Reports system reviewed and no additional complaints, except as documented Favio/Lymph Reports system reviewed and no additional complaints, except as documented Aller/Immun Reports system reviewed and no additional complaints, except as documented Exam Const General: cooperative, healthy appearing and no acute distress Orientation: alert, awake and oriented x3 Neck Neck: normal visual inspection and full ROM Resp Effort & Inspection: normal respiratory effort, able to speak in complete sentences and symmetric chest movement GI Inspection: normal to inspection Palpation: soft and other Other: gravid Skin General: no rashes or lesions noted Neuro General: patient alert, patient awake and patient oriented x3 Cognition: normal cognition Speech: speech normal Gait: normal gait Motor: muscle tone normal throughout Extrem General: normal to inspection and full ROM Psych Appearance: grossly normal Mental Status: mental status grossly normal Mood: congruent mood Affect: normal affect Speech and Movement: speech and movement normal Attitude: cooperative Thought Process: normal Thought Content: normal Judgment: judgment good Results POC Urinalysis 2 Dip (Clinic) Office Urine Glucose Negative Last Edit by Yolande Solares on 07/21/24 13:03 Office Urine Protein Negative Last Edit by Yolande Solares on 07/21/24 13:03 Coding Level of Care Code OB Routine Diagnoses Open abdominal incision with drainage T81.321A History of appendicitis Z87.19 Family history of Marfan syndrome Z82.79 Encounter for supervision of other normal in third trimester Z34.83 Normal : other normal Trimester: third trimester 36 weeks gestation of Z3A.36 Weeks of gestation: 36 weeks Assessment and Plan Assessment and Plan (1) Open abdominal incision with drainage: Status: Acute (2) History of appendicitis: Status: Acute Comment: 31 weeks (3) Family history of Marfan syndrome: Status: Acute Comment: Pt's brother...Pt has been tested and does NOT have (4) Supervision of normal : Status: Acute Qualifiers: Normal : other normal Trimester: third trimester Qualified Code(s): Z34.83 - Encounter for supervision of other normal , third trimester Comment: PRR, , MAURICIO 08/12/24, PC: Sarmad, : Adrien (5) : Status: Acute Qualifiers: Weeks of gestation: 36 weeks Qualified Code(s): Z3A.36 - 36 weeks gestation of Comment: Discussed genetic/carrier testing AFP - declines, nl anatomy Orders: Orders POC Urinalysis 2 Dip (Clinic) Today Culture, Group B Streptococcus Today Z34.83 - Encounter for supervision of other normal , third trimester, Z3A.36 - 36 weeks gestation of Plan Details Additional Comments: ACOG trimester education reviewed and updated. see problem list details for updated plan management information and see below for orders placed atthis visit. GA appropriate handout given. 07/21/24 1314 s ESTRADA> Date Lalito Prather CNM Cosigner Signature: Date (if applicable) CC: ~ [facility]05-13-[address] [facility] [address], [address] [place] [address] OFFICE VISIT Date of Service: 07/07/24 MR#: [id number] Acct: [id number] Name: KALLI MORGAN Rep #: [id number] : 1995 Provider: Dr. 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 Lali Bro MD) Vaginal delivery Acute otitis media, left Acute frontal sinusitis, unspecified Non-smoker Pneumonia Surgical History (Updated 07/07/24 @ 09:57 by Emely Bob) S/P appendectomy History of gynecologic surgery Family History Brother Heart disease Marfan syndrome Aunt Pancreatic cancer Social History adopted: No household members: spouse and children number of children: 1 current occupation: [employer] current occupational exposures/hazards: No pets and animals: Yes history of recent travel: No sexually active: Yes Smoking Status: Never smoker alcohol intake: current alcohol intake frequency: holidays/special occasions only details: Not while substance use type: does not use well-balanced diet: daily or most days caffeine: Yes Type: coffee eating out: rarely or never during the past year weight has: remained stable what type of physical activity do you participate in: weight training frequency: 3-4 times per week duration: 30-45 minutes/day roderick/orthodox: Orthodox seatbelt use: always do you feel safe at home: Yes additional social history: : Adrien Peters History 2 Elective abortions Hx Para 1 Spontaneous abortions Hx # Term Pregnancies 1 Ectopic pregnancies Hx # Pregnancies Multiple births # of living children 1 Past Pregnancies Del. Date Name GA/Weeks Outcome Route Bth Weight Infant Gen Labor Lgth Anesthesia Del Locatn Provider FOB 06/18/23 Bañuelos 40 live - full term 9lbs 2oz Male ep idural [facility] Dr Melissa Jurado Delivery Date: 06/18/23 Last Updated by: Susan Somers RN no complications HPI 34 wk ob Details: KALLI MORGAN is a 28 year old who presents for routine OB visit. OB Visit MAURICIO Calculator Estimated Delivery Date Method Current WG Current Estimate 08/12/24 LMP (Certain) 34w 6d Other Estimates 08/11/24 Ultrasound #1 35w 0d Expected Delivery Route/Plan Labor Preferences- CB/BF classes: no labor support person: Adrien labor intervention preferences: [] pain management options preferred: epidural cut cord/dad catch: cord : yes PP control planned: discussed discussed possible routes of delivery and associated risks: [] special requests: [] Specific Issue/Plans Covid status: [] Flu vaccine: [] Tdap vaccine: declines Rhogam: na LARC form signed: yes Problem list reviewed and updated with the most current plan of care details and appropriate ordersplaced. Relevant counseling for the gestational age provided. Continue routine care and follow up unless otherwise noted in visit notes/problem list details Initial Weight: Not Recorded Date -?-?-?-?-?-?-?-?-?-?-?-?- EGA Weight BP Urine Prot -?-?-?-?-?-?-?-?-?-?-?-?- Glucose FHR FuHt Pres Dilation -?-?-?-?-?-?-?-?-?-?-?-?- Effaced St Visit Note 01/06/24 -?-?-?-?-?--?-?-?-?-?-?-?- 8w 5d 157 lb 129/82 -?-?-?-?-?-?-?-?-?-?-?-?- 187 -?-?-?-?-?-?-?-?-?-?-?-?- JV- CRL consiste nt with LMP. patient very nauseated today so declines pap today. will do next visit. declines medication. taking unisom + B6. declines nipt. 02/04/24 -?-?-?-?-?-?-?-?-?-?-?-?- 12w 6d 159 lb 2 oz 122/81 Nega tive -?-?-?-?-?-?-?-?-?-?-?-?- Negative 150 -?-?-?-?-?-?-?-?-?-?-?-?- SM- no vb andrew marks, educated about varicella non immune, patient was last pre gnancy and declined immunization after. 03/02/24 -?-?-?-?-?-?-?-?-?-?-?-?- 16w 5d 160 lb 4 oz 122/80 Nega tive -?-?-?-?-?-?-?-?-?-?-?-?- Negative 164 -?-?-?-?-?-?-?-?-?-?-?-?- -No VB, LOF. N o flutters yet. Will get labs today. US scheduled 03/25/24 -?-?-?-?-?-?-?-?-?-?-?-?- 20w 0d 162 lb 112/70 Negative -?-?-?-?-?-?-?-?-?-?-?-?- Negative 148 -?-?-?-?-?-?-?-?-?-?-?-?- MH-NO VB, LOF. G ood FM. anatomy US yesterday/results pending 04/27/24 -?-?-?-?-?-?-?-?-?-?-?-?- 24w 5d 170 lb 127/82 Negative -?-?-?-?-?-?-?-?-?-?-?-?- Negative 155 25 -?-?-?-?-?-?-?-?-?-?-?-?- KW- no vb/lof/ct x. good fm. 28 week labs discussed 05/26/24 -?-?-?-?-?-?-?-?-?-?-?-?- 28w 6d 173 lb 2 oz 118/72 Nega tive -?-?-?-?-?-?-?-?-?-?-?-?- Negative 146 29 -?-?-?-?-?-?-?-?-?-?-?-?- -No VB, LOF. G ppd FM. 28 wk labs pending. Larc. Declines tdap 06/09/24 -?-?-?-?-?-?-?-?-?-?-?-?- 30w 6d 174 lb 121/77 Negative -?-?-?-?-?-?-?-?-?-?-?-?- Negative 140 30 -?-?-?-?-?-?-?-?-?-?-?-?- JV- no lof, vagi nal bleeding, or dec fm. normal glucola. hg 11.1. 06/23/24 -?-?-?-?-?-?-?-?-?-?-?-?- 32w 6d 167 lb 4 oz 119/80 -?-?-?-?-?-?-?-?-?-?-?-?- 145 31 -?-?-?-?-?-?-?-?-?-?-?-?- kw- no vb/lof/ct x. good fm. had appendicitis and had surgery last week. will get US scheduled for follow up placenta. 07/07/24 -?-?-?-?-?-?-?-?-?-?-?-?- 34w 6d 172 lb 8 oz 116/76 -?-?-?-?-?-?-?-?-?-?-?-?- 140 34 -?-?-?-?-?-?-?-?-?-?-?-?- SM- open incisio n in upper abdomen with white drainage after dermbond removed, no erythema or significant tenderness- reviewed precautions to watch and keflex ordered jjust in case ACOG First Trimester First Trimester: Discussed Second Trimester Second Trimester: Signs and Symptoms of Labor, Reproductive Life Planning & Contreception and Care Planning; Discussed Tobacco Cessation, Discussed Depression/Anxiety and Discussed Intimate Partner Violence Third Trimester Third Trimester: Pain Management Plans, Labor support person(s), Immediate Larc, Circumcision preference, Signs and Symptoms of Preeclampsia, Infant Feeding No and Family Medical Leave or Disability Forms Coding Level of Care Code OB Routine Diagnoses Family history of Marfan syndrome Z82.79 Encounter for supervision of other normal in third trimester Z34.83 Normal : other normal Trimester: third trimester 34 weeks gestation of Z3A.34 Weeks of gestation: 34 weeks History of appendicitis Z87.19 Open abdominal incision with drainage T81.321A Assessment and Plan Assessment and Plan (1) Family history of Marfan syndrome: Status: Acute Comment: Pt's brother...Pt has been tested and does NOT have (2) Supervision of normal : Status: Acute Qualifiers: Normal : other normal Trimester: third trimester Qualified Code(s): Z34.83 - Encounter for supervision of other normal , third trimester Comment: PRR, , MAURICIO 08/12/24, PC: Sarmad, : Adrien (3) : Status: Acute Qualifiers: Weeks of gestation: 34 weeks Qualified Code(s): Z3A.34 - 34 weeks gestation of Comment: Discussed genetic/carrier testing AFP - declines, nl anatomy (4) History of appendicitis: Status: Acute Comment: 31 weeks (5) Open abdominal incision with drainage: Status: Acute Orders: Orders POC Urinalysis 2 Dip (Clinic) Today Medications: New cephalexin space evenly during waking hours 500 mg PO TID 7 days 21 caps 0RF 07/07/24 1013 rhianna ARZATE> Date _ Lali Bro [facility] Centerign Signature: Date (if applicable) CC: ~ [facility]05-09-2025 Radiology Diagnostic study note [facility] Imaging Services [address] [facility] [address] [place], [place] [id number] OB Limited With Biometrics MR#: [id number] Acct: [id number] Name: KALLI MORGAN Rep #: [id number] : 1995 F 28 From: Wander Shin MD PCP: BOB Driver Status: REG CLI Study:OB Limited With Biometrics Date of Exam : 07/01/24 Exam# [id number] Ordering Dr: Tova Prather CNM PROCEDURE: OB LIMITED WITH BIOMETRICS 07/01/2024 REASON FOR EXAM: PLACENTAL LOCATION AND GROWTH TECHNIQUE: High resolution obstetric ultrasound performed using a 2D transducer. Standard views obtained, including biometry, anatomy survey, and Doppler studies. FINDINGS Transabdominal and transvaginal imaging Single live intrauterine cardiac activity 143 beats per minute. Presentation is cephalic. Cervical length 3.5 cm and appears closed. DENISE 18.3 cm Right lateral placenta appears within limits, not low-lying, grade 2 DIMENSIONS: Biparietal Diameter: 8.71 cm/35 weeks 1 day, 79% Head Circumference: 33.09 cm/37 weeks 5 days, 94% Abdominal Circumference: 32.44 cm/36 weeks 2 days, 97% Femur Length: 6.46 cm/33 weeks 2 days, 23% FL/AC 19.90% (20.00 24.00%) FL/BPD 74%, FL/HC 20%, CI 73%, HC/AC 1.02 ESTIMATED WEIGHT: 2681 g +/-402 g, 83% ESTIMATED WEIGHT PERCENTILE (24+ weeks): 83% Estimated age by current ultrasound 35 weeks 6 days, MAURICIO 07/30/2024 age by prior ultrasound 34 weeks 1 day, MAURICIO 08/11/2024 age by LMP 34 weeks 0 days, MAURICIO 08/12/2024 US/OB Limited With Biometrics IMPRESSION: FL/AC 19.90% (20.00 24.00%) . Single live intrauterine with biometry as above. Reading Location: [id number] CC: ESTRADA Prather; BOB Driver ~ Test Bore Helper: Signed [facility]04-23-2025 NoteFetal Non-Stress Test Start: 899 End: 934 Result: reactive Baseline: 120 Variability: moderate Accelerations: present Decelerations: absent [place]: absent Delma Aguirre MD, MBA [facility] Maternal- [facility]04-23-2025 Procedure note* Ozzie Aguirre MD - 06/17/2024 12:25 PM EDT Non-Stress Test Start: 899 End: 934 Result: reactive Baseline: 120 Variability: moderate Accelerations: present Decelerations: absent [place]: absent Delma Aguirre MD, MBA FACOG Maternal- Medicine [facility] Work Phone: 1(374) 217-809504-23-2025 Procedure note* Ozzie Aguirre MD - 06/17/2024 12:25 PM EDT Non-Stress Test Start: 899 End: 934 Result: reactive Baseline: 120 Variability: moderate Accelerations: present Decelerations: absent [place]: absent Delma Aguirre MD, MBA, FACOG Maternal- Medicine documented in [facility]04-23-2025 Note* Care Coordination - Laly Mcguire RN - 06/17/2024 12:22 PM EDT Hospital day 3 at 32/1 weeks. Appendicitis. Laparoscopic appendectomy. Voiced no needs or concerns. [facility] [id number] Note* Care Coordination - Laly Mcguire RN - 06/17/2024 12:22 PM EDT Hospital day 3 at 32/1 weeks. Appendicitis. Laparoscopic appendectomy. Voiced no needs or concerns. [facility] [id number] Miscellaneous Notes* Care Coordination - Laly Mcguire RN - 06/17/2024 12:22 PM EDT Hospital day 3 at 32/1 weeks. Appendicitis. Laparoscopic appendectomy. Voiced no needs or concerns. * Care Coordination - Leonela De Dios RN - 06/16/2024 3:21 PM EDT Attempted to see patient x 2 this am; sleeping at those times; at bedside; Per , pt does not have health insurance; financial counselor has been in to see pt/; Will let primary RN know if further needs arise for CM; left undisturbed at this time * Perioperative Nursing Note - Andie Kim RN - 06/16/2024 5:09 AM EDT Report called to H2. * Perioperative Nursing Note - Andie Kim RN - 06/16/2024 5:00 AM EDT Update given to patient's spouse. * Perioperative Nursing Note - Andie Kim RN - 06/16/2024 4:41 AM EDT Unable to contact patient's spouse to give update vis phone. * Significant Event - Miriam Zaldivar DO - 06/16/2024 3:01 AM EDT Images from the original note were not included. Transfer the patient down from labor and delivery triage to PACU. heart tracing was category 1 while in triage. Brought down to PACU and agree hooked up to monitoring. FHT baseline 140s. Anesthesia to interview patient. Following tracing, patient was brought to the OR and repositioned on the bed. FHT monitoring reapplied. Cat I FHT with baseline still in 140s, moderate variability. monitoring removed so that patient's belly could be prepped and draped. Laly Hager RN present in the OR. monitor to remain at bedside. NICU warmer right outside OR 6 and back hallway. Ultrasound also in the back hallway. Dr. Heller present in the hospital. Will plan for surgery and then immediately as able replace monitoring once sterile field has been cleared. delivery tray at bedside. NICU team has been notified. Received 1 dose of betamethasone. Will continue close monitoring. Miriam Zaldivar DO 06/16/2024 3:06 AM In OR at time of closure. Once port sites closed, FHT applied. FHT in 120s, moderate variability. Patient repositioned on to new bed and brought to PACU. Monitors reapplied. Irritability on TOCO withcontractions q2min. No decelerations noted. Laly Hager RN remains at bedside. Plan for tocolysis when patient awake and able to swallow. Will give 500ml bolus. .No additional abx per general surgery. Pain medications ordered. No NSAIDs. Dr. Heller updated on status. SEARCH ENGINE OPTIMIZATION MANAGER notified of completion of surgery Miriam Zaldivar DO 06/16/2024 4:12 AM * Op Note - Jose Enrique Morales III, MD - 06/16/2024 2:47 AM EDT OPERATIVE NOTE DATE OF PROCEDURE: 06/16/2024 SURGEON: Shawn Farley MD RESIDENT: Andrew Haskins PREOPERATIVE DIAGNOSIS: acute appendicitis POSTOPERATIVE DIAGNOSIS: Same OPERATION: Laparoscopic appendectomy ANESTHESIA: General anesthesia ESTIMATED BLOOD LOSS: Minimal COMPLICATIONS: None SPECIMENS: Appendix HISTORY: The patient is a 28 y.o. year old female with history of above preop diagnosis. I explained the risk, benefits, expected outcome, and alternatives to the procedure. Patient understands and is in agreement to proceed with operation. PROCEDURE: Patient taken to the operating room and placed supine with right arm tucked to protect bony prominences on the operating table. A bump was placed under the right side to offload the graviduterus from the IVC and aorta. After adequate anesthesia and timeout protocol was completed, the abdomen was prepped and draped in standard sterile fashion. An epigastric 10 mm Fernandez port was placedusing an open technique and insufflation was established with CO2 gas to pressure of 10 mm Hg. Under direct vision, two 5mm non-bladed ports were inserted in the right upper quadrant and right mid-abdomen. Camera was then inserted into the epigastric port and the cecum was identified and inflamed ap pendix was also identified. This was grasped at mid body and retracted away from the cecum with bowel grasper. The mesoappendix was divided using Enseal device and the appendix was then ligated usingthree endo-loops. The appendix was transected with the Enseal. Hemostasis was evident. Appendix wasthen removed from abdomen using a laparoscopic bag. The abdomen was then desulflated and cannulas removed under direct visualization. The epigastric port fascia was closed with PDS. Hemostasis was observed. The skin incisions closed with interrupted 4-0 Moncryl subcuticular sutures. Steri strips, and sterile dressings were applied. The sponge and needle count were correct. The patient tolerated the procedure well and was sent to PACU in stable condition. Staff from the obstetrics team were present in the OR to check heart tones before and after surgery. Cosigned by Shawn Farley MD at 06/16/2024 5:46 AM EDT Associated attestation - Shawn Farley MD - 06/16/2024 5:46 AM EDT I attest that I was present and supervised the entire procedure. I agree with the operative detailsas documented in the resident's note. heart tones monitored immediately before and after the procedure Minimal insufflation used throughout case, patient tolerated it well Appendix inflamed and adhered to engorged fallopian veins No other pathology noted This note is electronically signed by: Shawn Farley MD 5:42 AM, 06/16/2024. documented in this [facility]04-23-2025 Nurse Note* Gricelda Matamoros RN - 06/17/2024 12:15 PM EDT Discharge instructions given to the patient at this time. Medication list reviewed, patient will cook pickled meat medication at her home pharmacy. IV removed. Kick counts and labor precautions reviewed with the patient. Patient verbalizes understanding of instructions. Discharge to home per wheelchair. with the patient. [facility] [id number] Nurse Note* Gricelda Matamoros RN - 06/17/2024 12:15 PM EDT Discharge instructions given to the patient at this time. Medication list reviewed, patient will cook pickled meat medication at her home pharmacy. IV removed. Kick counts and labor precautions reviewed with the patient. Patient verbalizes understanding of instructions. Discharge to home per wheelchair. with the patient. documented in this [facility]04-23-2025 Hospital Discharge instructions* Discharge Instructions* Nate Venegas MD - 06/17/2024 9:27 AM EDT Follow up appointment with your doctor/media technician - Call OBGYN to make a follow up appointment Activity - limit strenuous activity until recovered from surgery and evaluated by OBGYN Call your doctor/media technician if you have: - leaking fluid - vaginal bleeding - regular contractions: More than 6 contractions in one hour - decreased movement - worsening abdominal (belly) pain - headache, blurry vision, increased swelling, upper abdominal pain If you are going home with contractions that are uncomfortable/painful- we recommend these coping strategies: rhythmic breathing, hydrotherapy, imagery or visualization, gentle massage, walking and changing your position. Treatment Verification: Kalli Morgan was assessed on Labor and Delivery for a related visit on 06/17/24 . Nate Venegas MD [facility] * Attachments The following attachments cannot be sent through Care Everywhere. * Appendectomy, Laparoscopic Surgery Discharge Instructions (Malaysian) documented in this [facility]04-23-2025 Critical access hospitalepartment of Obstetrics and Gynecology [facility] Discharge Summary Admission on 06/15/2024 11:54 PM Kalli Morgan is a 28 y.o. at 32w0d who presented to Labor and Delivery for concerns of appendicitis. Patient presented to [facility] for concerns of right lower quadrant abdominal pain started on Saturday. Had initially been diagnosed with colitis and was given antibiotics. Re-presented emergency department due to worsening pain. MRI at that time did note concern for acute appendicitis. Patient was transferred to [facility] for further evaluation. While at [facility], repeat labs were collected and general surgery was consulted. General surgery recommended surgical evaluation for an appendectomy. Patient underwent a laparoscopic appendectomy on 06/16/24. Patient was given 48h of tocolytcs with procardia. Received x2 doses of BMZ on 06/16-06/17/2024. Meds: Medication List START taking these medications acetaminophen 500 MG tablet Commonly known as: Tylenol Extra Strength Take 1 tablet (500 mg) by mouth every 6 hours as needed for mild pain (1-3) for up to 10 days. docusate sodium 100 MG capsule Commonly known as: Colace Take 1 capsule (100 mg) by mouth 2 times daily as needed for constipation for up to 10 days. oxyCODONE 5 MG immediate release tablet Commonly known as: Roxicodone Take 1 tablet (5 mg) by mouth every 6 hours as needed for moderate pain (4-6) or severe pain (7-10) for up to 2 days. Where to Get Your Medications These medications were sent to [address] [address] acetaminophen 500 MG tablet docusate sodium 100 MG capsule oxyCODONE 5 MG immediate release tablet Discharge to: Home Discharge date: 06/17/24 Discharge Dx: Kalli Morgan is a 28 y.o. at 32w1d who is s/p appendectomy Follow up appointment with your doctor/media technician - Call OBGYN to make appointment Activity - limit strenuous activity until recovered from surgery and evaluated by OBGYN Call your doctor/media technician if you have: - leaking fluid - vaginal bleeding - regular contractions: More than 6 contractions in one hour - decreased movement - worsening abdominal (belly) pain - headache, blurry vision, increased swelling, upper abdominal pain Nate Venegas MD 06/17/2024 2:41 [place] [id number] Hospital course Narrative* Nate Venegas MD - 06/17/2024 9:26 AM EDT Images from the original note were not included. Department of Obstetrics and Gynecology [facility] Discharge Summary Admission on 06/15/2024 11:54 PM Kalli Morgan is a 28 y.o. at 32w0d who presented to Labor and Delivery for concerns of appendicitis.Patient presented to [facility] for concerns of right lower quadrant abdominal pain started on Saturday. Had initially been diagnosed with colitis and was given antibiotics. Re-presented emergency department due to worsening pain. MRI at that time did note concern for acute appendicitis. Patient was transferred to [facility] for further evaluation. While at [facility], repeat labs were collected and general surgery was consulted. General surgery recommended surgical evaluation for an appendectomy. Patient underwent a laparoscopic appendectomy on 06/16/24. Patient was given 48h of tocolytcs with procardia. Received x2 doses of BMZ on 06/16-06/17/2024. Meds: Medication List START taking these medications acetaminophen 500 MG tablet Commonly known as: Tylenol Extra Strength Take 1 tablet (500 mg) by mouth every 6 hours as needed for mild pain (1-3) for up to 10 days. docusate sodium 100 MG capsule Commonly known as: Colace Take 1 capsule (100 mg) by mouth 2 times daily as needed for constipation for up to 10 days. oxyCODONE 5 MG immediate release tablet Commonly known as: Roxicodone Take 1 tablet (5 mg) by mouth every 6 hours as needed for moderate pain (4-6) or severe pain (7-10)for up to 2 days. Where to Get Your Medications These medications were sent to [place] [address] acetaminophen 500 MG tablet docusate sodium 100 MG capsule oxyCODONE 5 MG immediate release tablet Discharge to: Home Discharge date: 06/17/24 Discharge Dx: Kalli Morgan is a 28 y.o. at 32w1d who is s/p appendectomy Follow up appointment with your doctor/media technician - Call OBGYN to make appointment Activity - limit strenuous activity until recovered from surgery and evaluated by OBGYN Call your doctor/media technician if you have: - leaking fluid - vaginal bleeding - regular contractions: More than 6 contractions in one hour - decreased movement - worsening abdominal (belly) pain - headache, blurry vision, increased swelling, upper abdominal pain Nate Venegas MD 06/17/2024 2:41 AM Cosigned by Ozzie Aguirre MD at 06/17/2024 12:21 PM EDT documented in this [facility]04-23-2025 History of Present illness Narrative* Nate Venegas MD - 06/17/2024 6:25 AM EDT Images from the original note were not included. Maternal Medicine Service Resident Progress Note 06/17/2024 6:25 AM 06/15/2024 Hospital Day: 3 Kalli Morgan, 28 y.o. 32w1d Patient has been seen and examined. Patient mentions she is doing well this morning. Pain is controlled, baby is moving, having [place] contractions but nothing that is too uncomfortable, no vaginal bleeding or leakage of fluid. Furthermore denies chest pain, shortness of breath. Vitals: 06/16/24 1545 06/16/24 2137 06/17/24 0059 06/17/24 0607 BP: (!) 115/55 (!) 108/49 BP Location: Patient Position: Pulse: 109 Resp: 18 Temp: 37.1 C (98.8 F) 37.1 C (98.8 F) TempSrc: Oral Oral SpO2: 97% 95% 98% Weight: 172 lb (78 kg) Height: 5' 7 (1.702 m) No FHT data to review during the current shift Physical Exam: Gen: NAD HEENT: Normocephalic, Atraumatic, EOMI, MMM Resp: No increased work of breathing Card: Intermittently tachycardic Abd: soft, gravid, NTND, no rebound, no guarding. No fundal tenderness Medications: Current Facility-Administered Medications Medication Dose Route Frequency Provider Last Rate Last Admin acetaminophen (Tylenol) tablet 650 mg 650 mg Oral q6h Miriam Zaldivar, DO 650 mg at 06/17/24 0608 enoxaparin (Lovenox) syringe 40 mg 40 mg SubCUTAneous 2 times per day Nate Venegas MD 40 mg at 06/16/242125 morphine injection 2 mg 2 mg IntraVENous q4h PRN Miriam Zaldivar DO Or morphine injection 4 mg 4 mg IntraVENous q4h PRN Miriam Zaldivar DO naloxone (Narcan) injection 0.4 mg 0.4 mg IntraVENous q5 min PRN Ozzie Aguirre MD naloxone (Narcan) injection 0.4 mg 0.4 mg IntraVENous PRN Miriam [place], DO NIFEdipine (Procardia) capsule 10 mg 10 mg Oral 4 times per day Miriam Zen, DO 10 mg at 06/17/24 0609 ondansetron ODT (Zofran-ODT) disintegrating tablet 4 mg 4 mg Oral q8h PRN Miriam [place], DO Or ondansetron (Zofran) injection 4 mg 4 mg IntraVENous q6h PRN Miriam [place], DO oxyCODONE (Roxicodone) immediate release tablet 5 mg 5 mg Oral q4h PRN Miriam Zen, DO 5 mg at 06/16/242125 Or oxyCODONE (Roxicodone) immediate release tablet 10 mg 10 mg Oral q4h PRN Miriam Zen, DO oxyCODONE (Roxicodone) immediate release tablet 5 mg 5 mg Oral q4h PRN Miriam Zen, DO polyethylene glycol (PEG) 3350 (Miralax) packet 17 g 17 g Oral Daily PRN Miriam [place], DO vitamin tablet 1 tablet Oral Daily Miriam Zen, DO 1 tablet at 06/16/24 0957 simethicone (Mylicon) chewable tablet 80 mg 80 mg Oral q6h PRN Miriam [place], DO sodium chloride 0.9 % infusion 5-250 mL/hr IntraVENous PRN Miriam [place], DO sodium chloride 0.9% (NS) flush 10 mL 10 mL IntraVENous 2 times per day Miriam [place], DO 10 mL at 06/16/242126 sodium chloride 0.9% (NS) flush 10 mL 10 mL IntraVENous PRN Miriam [place], DO 10 mL at 06/16/24 0124 Assessment/Plan: Kalli Morgan is a 28 y.o. female 32w1d Appendicitis -Increasing right lower quadrant pain or discomfort that started on Saturday -CT A/P at that time noted concern for colitis and patient was started on Augmentin -Continued worsening abdominal pain throughout the day and represented to hospital on 06/15 in whichan MRI was performed that noted concern for acute appendicitis with an edematous appendix without evidence of focal abscess - Status post laparoscopic appendectomy on 06/16 -Status post BMZ x 2 06/16 - 06/17 -Currently on Procardia 10 mg every 6 hours for 48 hours tocolysis - Overnight patient's pain is controlled, tolerating p.o. intake, denies chest pain, shortness of breath - Vitals notable for oxygen saturation of 92% when the patient sleeps, intermittently tachycardic to the low 100s, was placed on 2 L nasal cannula overnight - Saturates greater than 95% on room air when awake, on room air on my evaluation this morning - Physical exam notable for benign abdominal exam, nontender, nondistended, no rebound - Continue Lovenox 40 mg twice daily - Continue to monitor Polyhydramnios - DENISE 24.43 on 06/16 US Abnormal Ultrasound - 2 Vessel cord noted on 06/16 scan state -Will plan to obtain records -New OB labs reordered IUP @ 32w1d - Dating by LMP - vertex 06/16 - Monitoring: CEFM - Diet: General - BMZ x2 on 06/16- Further plan pending d/w attending. Nate Venegas MD 06/17/2024, 6:25 AM Comment: Please note that all or parts of this documentation may have been produced using speech recognition software and may contain errors related to that system including errors in grammar, punctuation, and spelling, as well as words and phrases that may be inappropriate despite review prior to signing. If there are any questions or concerns please feel free to contact the dictating provider for clarification. Cosigned by Ozzie Aguirre MD at 06/17/2024 12:25 PM EDT Associated attestation - Ozzie Aguirre MD - 06/17/2024 12:25 PM EDT Hospital Care (Independent): I independently saw and evaluated the patient. I agree with the findings and plan of care as documented in the resident's note. Patient was seen this morning on rounds and reports that she feels much improved compared to her initial presentation. She has been able to tolerate regular diet. Her pain is well-controlled with Tylenol. She has otherwise been afebrile and appears to have met all of her postoperative milestones. monitoring has been reassuring during this admission. NST is reactive this morning without evidence of contractions on tocometer. Given totality of findings, I think that she is stable from a surgical perspective for outpatient management. Will plan to discharge the patient today. I recommendedthat she follow-up with her primary gaming cage cashier within 7 to 10 days for postoperative and return OB appointment. Delma Aguirre MD [facility] Maternal- Medicine * Joel Orta MD - 06/16/2024 12:14 PM EDT Patient seen on rounds this morning. Patient denies any abdominal pain this time. Patient denies nausea or vomiting. Incisions on exam are CDI. No focal tenderness. Okay to advance diet as tolerated from surgical perspective. Rest of care per primary. General surgery signed off this time, please page on-call resident with any further questions or concerns. Joel Orta MD General Surgery Resident 06/16/2024 at 12:15 PM Pager [phone] * Nate Venegas MD - 06/16/2024 6:39 AM EDT Patient arrived to floor. I introduced myself to the patient and checked in on her. Says pain is 5 out of 10. Patient is a little tachycardic, although recently postop we will continue to monitor closely as she is asymptomatic. Adelso on tocometer but she is not feeling them, tocolyzed with procardia pre-operatively. S/p BMZ x1. heart tracing category 1 on review in the room. Patient has no questions or concerns at this time. Nate Venegas MD 06/16/2024 6:40 AM * Miriam Zaldivar, DO - 06/15/2024 11:58 PM EDT Images from the original note were not included. Department of Obstetrics and Gynecology Labor and Delivery Triage Note CHIEF COMPLAINT: Abodminal pain HISTORY OF PRESENT ILLNESS: The patient is a 28 y.o. 32w0d. OB History 2 Para 1 Term 1 AB Living SAB IAB Ectopic Multiple Live Births Patient presents with a chief complaint as above. Patient coming in as a transfer from [facility]. Presents from [facility] for concerns of acute abdominal pain. Patient is a 28-year-old at 31weeks and 2 days coming in for abrupt onset right lower quadrant pain and discomfort. Patient reports that her pain has been going on Since Saturday. Was seen on 06/14, states they diagnoses her with colitis and dc home on abx of augmentin. Patient took abx but reported that pain continued to worsen. Went back to ER 06/15 and then was diagnosed with concern of MRI. Patient denies any changes to herbowel or bladder habits. Hx of ?right? Oophorectomy for ovarian cyst 3 years ago. Denies any feversat home. CT abdomen pelvis on 06/14/2024 noted concerns for colitis and reported that the appendix was not clearly visualized. Patient was started on Augmentin for antibiotic coverage. Patient reports that shecontinued to have abdominal pain every present to the hospital. CBC at [facility] noted uptrending leukocytosis. WBC in the emergency room was 15.6. Hemoglobin stable at 11.2. CMP within normallimits with creatinine 0.52. lactic acid <1.0. No LFT elevation. UA was negative for any nitrates or blood but did have 500 leukocytes and 2+ bacteria.Patient was recommended to have an MRI without contrast. MRI was notable for a prominent appendix of the edematous wall and some stranding of the surrounding fat worrisome for acute appendicitis. There was no loculated fluid collection to suggest an abscess. Patient was given dose of Zosyn at 2102 and recommended for transfer to [facility]. Does appear that patient had met sepsis criteria at outside facility with a pulse of 132, and white count of 15.6. G2, P1 history of vaginal delivery, uncomplicated at 40w6d Medical Hx: denies Surgical HX; right oophorectomy Family history positive for brother with Marfan syndrome Allergies; none Medications: PNV Denies DFM/VB/LOF/CTX Estimated Due Date: Estimated Date of Delivery: 08/11/24 PAST MEDICAL HISTORY: History reviewed. No pertinent past medical history. PAST SURGICAL HISTORY: Past Surgical History: Procedure Laterality Date OOPHORECTOMY Right SOCIAL HISTORY: Social History Socioeconomic History Marital status: Not on file Spouse name: Not on file Number of children: Not on file Years of education: Not on file Highest education level: Not on file Occupational History Not on file Tobacco Use Smoking status: Never Smokeless tobacco: Never Vaping Use Vaping status: Never Used Substance and Sexual Activity Alcohol use: Not Currently Drug use: Never Sexual activity: Not on file Other Topics Concern Not on file Social History Narrative Not on file Social Drivers of Health Financial Resource Strain: Not on file Food Insecurity: Not on file Transportation Needs: Not on file Physical Activity: Not on file Stress: Not on file Social Connections: Not on file Intimate Partner Violence: Not on file Housing Stability: Not on file MEDICATIONS: No current facility-administered medications for this encounter. CARE: Complicated by: None REVIEW OF SYSTEMS: Pertinent items are noted in HPI. APPEARANCE: Pain: yes PHYSICAL EXAM: Vital Signs: VS wnl-reviewed/Respirations normal effort Vitals: 06/15/24 2358 BP: 115/68 Pulse: 103 Resp: 18 Temp: 37.1 C (98.7 F) TempSrc: Oral SpO2: 100% Abdomen: Tender to palpation specifically increased on right side greater than left with very lighttouch, guarding and rebound positive; no CVA tenderness LE Edema: No lower extremity edema present. Speculum Exam: deferred secondary to pain heart rate: Category I Cervix: Closed on digital exam Contraction frequency: irregular isolated contractions noted on toco in triage Membranes: Intact RESULTS: GENERAL LABS: No results found for this or any previous visit (from the past 24 hours). TRIAGE COURSE: Vertex on BSUS. Uncomfortable appearing in bed. Right leg elevated says it hurts to lie flat. Increasing pain and tenderness in the right upper and right lower quadrant. Right significantly greater than left. Rebound and guarding present. No current nausea or emesis. Last ate half an apple around 1700. General surgery consulted and at bedside. SVE by Dr. Acevedo closed. NOB labs recollected as patient does not have records available on phone. SEARCH ENGINE OPTIMIZATION MANAGER notified. If surgery, previously discussed with Dr. Aguirre that we will plan for 48 hours of toco lysis following procedure. Will plan to get betamethasone at this time. Will need continuous monitoring up until surgery and then secondary to ap pendectomy and sterile procedure will not be able to monitor IntraOp. Will plan to monitor postop. Discussed the need for monitoring with patient and also limitations of surgery given abdominal surgery. Will plan to have Dr. Heller in house if needing emergency surgery. Will plan to admit and continue assess pending general surgery's plans. Repeat CBC and CMP ordered. Urine culture ordered [id number] leukocytes on UA at [facility]. Miriam Zaldivar DO 06/16/2024 1:00 AM IMPRESSION: Appendicitis DISCUSSED WITH PNC PROVIDER: Dr. Aguirre DISPOSITION: Admit to PNU documented in this [facility]04-22-2025 Note* Care Coordination - Leonela De Dios RN - 06/16/2024 3:21 PM EDT Attempted to see patient x 2 this am; sleeping at those times; at bedside; Per , pt does not have health insurance; financial counselor has been in to see pt/; Will let primary RN know if further needs arise for CM; left undisturbed at this time [id number] [facility]* Care Coordination - Leonela De Dios RN - 06/16/2024 3:21 PM EDT Attempted to see patient x 2 this am; sleeping at those times; at bedside; Per , pt does not have health insurance; financial counselor has been in to see pt/; Will let primary RN know if further needs arise for CM; left undisturbed at this time [place] [id number] Nurse Note* Perioperative Nursing Note - Andie Kim RN - 06/16/2024 5:09 AM EDT Report called to H2. [id number] Nurse Note* Perioperative Nursing Note - Andie Kim RN - 06/16/2024 5:00 AM EDT Update given to patient's spouse. [place] [id number] Nurse Note* Perioperative Nursing Note - Andie Kim RN - 06/16/2024 4:41 AM EDT Unable to contact patient's spouse to give update vis phone. [place] [id number] NotePatient: Kalli Morgan Procedure Summary Date: 06/16/24 Room / Location: [place] [address] [facility] Operating Room Anesthesia Start: 8 Anesthesia Stop: 356 Procedure: LAPAROSCOPIC, APPENDECTOMY (Abdomen) Diagnosis: Acute appendicitis affecting Surgeons: Shawn Farley MD Responsible Provider: Eladio Marion MD Anesthesia Type: general ASA Status: 2 - Emergent Anesthesia Type: general Vitals Value Taken Time BP 131/51 06/16/24 0400 Temp 98f 06/16/24 0406 Pulse 115 06/16/24 0405 Resp 14 06/16/24 0406 SpO2 100 % 06/16/24 0405 Vitals shown include unfiled device data. Anesthesia Post Evaluation Patient location during evaluation: PACU Patient participation: complete - patient participated Level of consciousness: awake and alert Pain management: satisfactory to patient Airway patency: patent Dental Injury: no Cardiovascular status: acceptable, blood pressure returned to baseline and hemodynamically stable Respiratory status: acceptable and spontaneous ventilation Hydration status: euvolemic Nausea/Vomiting: controlled No notable events documented. Patient can be discharged once all PACU criteria has been met.[facility]04-22-2025 NotePatient: Kalli Morgan Procedure Summary Date: 06/16/24 Room / Location: [address] Operating Room Anesthesia Start: 247 Anesthesia Stop: 356 Procedure: LAPAROSCOPIC, APPENDECTOMY (Abdomen) Diagnosis: Acute appendicitis affecting Surgeons: Shawn Farley MD Responsible Provider: Eladio Marion MD Anesthesia Type: general ASA Status: 2 - Emergent Anesthesia Type: general Vitals Value Taken Time BP 131/51 06/16/24 0400 Temp 98f 06/16/24 0406 Pulse 115 06/16/24 0405 Resp 14 06/16/24 0406 SpO2 100 % 06/16/245 Vitals shown include unfiled device data. Anesthesia Post Evaluation Patient location during evaluation: PACU Patient participation: complete - patient participated Level of consciousness: awake and alert Pain management: satisfactory to patient Multimodal analgesia pain management approach Airway patency: patent Two or more strategies used to mitigate risk of obstructive sleep apnea Cardiovascular status: acceptable and hemodynamically stable Respiratory status: acceptable Hydration status: acceptable No notable events documented. MIPS #430 PONV Patient received an inhalational anesthetic (4554F) MIPS # 424 Perioperative Temperature Management Anesthesia time was 60 minutes or longer (4255F) MIPS #477 Multimodal Pain Management Not emergent case MIPS #404 Anesthesiology Smoking Abstinence The patient is not a current smoker (e.g. cigarette, cigar, pipe, e-cigarette/vaping/marijuana) If no stop here (XX404) MIPS #463 PEDIATRIC Prevention of Post Operative Vomiting (POV)- Combination Therapy Inhalational anesthetic were not used (G9955) I completed my handoff to the receiving clinician during which we: 1. Identified the patient 2. Identified the responsible provider 3. Reviewed the pertinent medical history 4. Discussed the surgical course 5. Reviewed intra-op anesthesia management and issues during anesthesia 6. Set expectations for post-procedure period 7. Allowed opportunity for questions and acknowledgement of understanding.[facility]04-22-2025 NotePeripheral Block Time Out: 06/16/2024 2:50 AM Patient location during procedure: Procedural Start time: 06/16/2024 2:51 AM End time: 06/16/2024 3:01 AM Reason for block: at surgeon's request and post-op pain management Staffing Performed: anesthesiologist Anesthesiologist: Eladio Marion MD Preanesthetic Checklist Completed: patient identified, IV checked, site marked, risks and benefits discussed, surgical consent, monitors and equipment checked, pre-op evaluation and timeout performed Region: [place] Primary: TAP (Bupivacaine 0.375%/ Epi 1:200,000/ Dex 0.1mg/mL 40ml divided evenly bilateral) Secondary: Upper rectus (Bupivacaine 0.375%/ Epi 1:200,000/ Dex 0.1mg/mL 20ml divided evenly bilateral) Peripheral Block Patient position: supine Prep: ChloraPrep Patient monitoring: heart rate, battery test engineer, continuous pulse ox and continuous capnometry O2: ETT/LMA Laterality: bilateral Injection technique: single-shot Guidance: ultrasound guided -image retained in chart, tip of the needle identified by ultraound during injection. Needle Needle: 21G X 110 mm Additional Notes 06/16/2024 2:51 AM Assessment Injection assessment: negative aspiration for heme, no paresthesia on injection and incremental injection Heart rate change: no Slow fractionated injection: yes Required Documentation: Relevant anatomy identified (Nerves, Vessels, Muscles), Negative for blood on aspiration, Local anesthetic injected incrementally with intermittent aspiration every 5 mL, Normal resistance with injection, No EKG changes noted, No symptoms of toxicity, Local anesthetic spread visualized around nerves or plane. and Local anesthetic injected without difficultyMedications [id number]-pdddsyczqyw-ohwygdojlzu (TAP) syringe - Injection 60 mL - 06/16/2024 2:51:00 [facility] [id number] wellness program manager Note * Significant Event - Miriam Zaldivar DO - 06/16/2024 3:01 AM EDT Images from the original note were not included. Transfer the patient down from labor and delivery triage to PACU. heart tracing was category 1 while in triage. Brought down to PACU and agree hooked up to monitoring. FHT baseline 140s. Anesthesia to interview patient. Following tracing, patient was brought to the OR and repositioned on the bed. FHT monitoring reapplied. Cat I FHT with baseline still in 140s, moderate variability. monitoring removed so that patient's belly could be prepped and draped. Laly Stone RN present in the OR. monitor to remain at bedside. NICU warmer right outside OR 6 and back hallway. Ultrasound also in the back hallway. Dr. Heller present in the hospital. Will plan for surgery and then immediately as able replace monitoring once sterile field has been cleared. delivery tray at bedside. NICU team has been notified. Received 1 dose of betamethasone. Will continue close monitoring. Miriam Zaldivar DO 06/16/2024 3:06 AM In OR at time of closure. Once port sites closed, FHT applied. FHT in 120s, moderate variability. Patient repositioned on to new bed and brought to PACU. Monitors reapplied. Irritability on TOCO withcontractions q2min. No decelerations noted. Laly Hager RN remains at bedside. Plan for tocolysis when patient awake and able to swallow. Will give 500ml bolus. .No additional abx per general surgery. Pain medications ordered. No NSAIDs. Dr. Heller updated on status. SEARCH ENGINE OPTIMIZATION MANAGER notified of completion of surgery Miriam Zaldivar DO 06/16/2024 4:12 AM [facility] [id number] NoteAirway Date/Time: 06/16/2024 3:00 AM Urgency: scheduled Airway not difficult General Information and Staff Patient location during procedure: Procedural Resident/SPECIAL AGENT: Jose Enrique Washington APRN - SPECIAL AGENT Performed: SPECIAL AGENT Indications and Patient Condition Indications for airway management: anesthesia and airway protection Sedation level: RSI Preoxygenated: yes Patient position: sniffing MILS maintained throughout Mask difficulty assessment: 0 - not attempted Final Airway Details Final airway type: endotracheal airway Successful airway: ETT Cuffed: yes Successful intubation technique: direct laryngoscopy Blade: Kassidy Blade size: #3 ETT size (mm): 7.0 Cormack-Lehane Classification: grade I - full view of glottis Placement verified by: chest auscultation, bronchoscopy and capnometry Measured from: lips ETT to lips (cm): 21 Number of attempts at approach: 1 [facility]ilation [facility]: [facility] [id number] Procedure note* Op Note - Jose Enrique Morales III, MD - 06/16/2024 2:47 AM EDT OPERATIVE NOTE DATE OF PROCEDURE: 06/16/2024 SURGEON: Shawn Farley MD RESIDENT: Andrew / Jozef PREOPERATIVE DIAGNOSIS: acute appendicitis POSTOPERATIVE DIAGNOSIS: Same OPERATION: Laparoscopic appendectomy ANESTHESIA: General anesthesia ESTIMATED BLOOD LOSS: Minimal COMPLICATIONS: None SPECIMENS: Appendix HISTORY: The patient is a 28 y.o. year old female with history of above preop diagnosis. I explained the risk, benefits, expected outcome, and alternatives to the procedure. Patient understands and is in agreement to proceed with operation. PROCEDURE: Patient taken to the operating room and placed supine with right arm tucked to protect bony prominences on the operating table. A bump was placed under the right side to offload the graviduterus from the IVC and aorta. After adequate anesthesia and timeout protocol was completed, the abdomen was prepped and draped in standard sterile fashion. An epigastric 10 mm Fernandez port was placedusing an open technique and insufflation was established with CO2 gas to pressure of 10 mm Hg. Under direct vision, two 5mm non-bladed ports were inserted in the right upper quadrant and right mid-abdomen. Camera was then inserted into the epigastric port and the cecum was identified and inflamed ap pendix was also identified. This was grasped at mid body and retracted away from the cecum with bowel grasper. The mesoappendix was divided using Enseal device and the appendix was then ligated usingthree endo-loops. The appendix was transected with the Enseal. Hemostasis was evident. Appendix wasthen removed from abdomen using a laparoscopic bag. The abdomen was then desulflated and cannulas removed under direct visualization. The epigastric port fascia was closed with PDS. Hemostasis was observed. The skin incisions closed with interrupted 4-0 Moncryl subcuticular sutures. Steri strips, and sterile dressings were applied. The sponge and needle count were correct. The patient tolerated the procedure well and was sent to PACU in stable condition. Staff from the obstetrics team were present in the OR to check heart tones before and after surgery. Cosigned by Shawn Farley MD at 06/16/2024 5:46 AM EDT Associated attestation - Shawn Farley MD - 06/16/2024 5:46 AM EDT I attest that I was present and supervised the entire procedure. I agree with the operative detailsas documented in the resident's note. heart tones monitored immediately before and after the procedure Minimal insufflation used throughout case, patient tolerated it well Appendix inflamed and adhered to engorged fallopian veins No other pathology noted This note is electronically signed by: Shawn Farley MD 5:42 AM, 06/16/2024. [employer] Phone: 1(781) 506-585804-22-2025 NotePatient: Kalli Morgan Procedure Information Date: 06/16/24 Procedure: LAPAROSCOPIC, APPENDECTOMY (Abdomen) Location: [facility] Operating Room Surgeons: Shawn Farley MD Relevant Problems No relevant active problems Clinical information reviewed: Tobacco Allergies Meds Med Hx Surg Hx Fam Hx Soc Hx Physical Exam Airway Mallampati: II TM distance: >3 FB Neck ROM: full Mouth Open: normalendotracheal tube not in place Cardiovascular - normal exam Dental dentition normal Pulmonary - normal exam Abdominal Abdomen: soft Bowel sounds: normal Other findings: 32 weeks backup operator Evaluation Anesthesia Plan patient is NPO appropriate Any family history or previous problems with anesthesia no ASA 2 - emergent general Any family history or previous problems with anesthesia no The patient is not a current smoker. Anesthetic plan and risks discussed with patient and spouse. Use of blood products discussed with who consented to blood products. Additional Equipment [facility]04-22-2025 History and physical note* Miriam Zaldivar DO - 06/16/2024 1:11 AM EDT Department of Maternal Medicine History and Physical CHIEF COMPLAINT: Appendicitis HISTORY OF PRESENT ILLNESS: The patient is a 28 y.o. female at 32w0d. OB History 2 Para 1 Term 1 AB Living SAB IAB Ectopic Multiple Live Births Patient presents with a chief complaint as above and is being admitted for acute appendicitis patient was seen in [facility] on 06/14 and 06/15 for abdominal pain and discomfort. On 06/14, patientreported A CT scan that noted no acute abnormalities and patient was diagnosed with colitis. Patient was started on Augmentin. Patient reported that her right lower quadrant pain continued to increase and worsen over the course of the weekend. Represented on 06/15 for worsening pain. MRI of the pelvis was done which noted concerns for an acute appendicitis with an edematous appendix, no obvious focal abscess. Patient was recommended transfer to [facility] for further evaluation. While in triage, patient continues to have worsening abdominal pain and discomfort. Rates her pain an 8 out of 10. Patient received 1 dose of Zosyn while in transport on 06/15 at 2100. Patient reports that her pain medications have not relieved her discomfort. Transport: Yes Prior Hospitalizations: No Estimated Due Date: Estimated Date of Delivery: 08/11/24 CARE: Complications: See below PAST OB HISTORY: OB History 2 Para 1 Term 1 AB Living SAB IAB Ectopic Multiple Live Births Detailed OB History Term Current Past Medical History: History reviewed. No pertinent past medical history. Past Surgical History: Past Surgical History: Procedure Laterality Date OOPHORECTOMY Right Allergies: Patient has no known allergies. Social History: Social History Socioeconomic History Marital status: Spouse name: Not on file Number of children: Not on file Years of education: Not on file Highest education level: Not on file Occupational History Not on file Tobacco Use Smoking status: Never Smokeless tobacco: Never Vaping Use Vaping status: Never Used Substance and Sexual Activity Alcohol use: Not Currently Drug use: Never Sexual activity: Not on file Other Topics Concern Not on file Social History Narrative Not on file Social Drivers of Health Financial Resource Strain: Not on file Food Insecurity: Not on file Transportation Needs: Not on file Physical Activity: Not on file Stress: Not on file Social Connections: Not on file Intimate Partner Violence: Not on file Housing Stability: Not on file Family History: No family history on file. Medications Prior to Admission: No medications prior to admission. REVIEW OF SYSTEMS: Review of Systems Constitutional: Negative for activity change, chills and fever. HENT: Negative for congestion, sinus pain and sore throat. Eyes: Negative for redness. Respiratory: Negative for cough and shortness of breath. Cardiovascular: Negative for chest pain. Gastrointestinal: Positive for abdominal pain and nausea. Negative for abdominal distention, diarrhea and vomiting. Genitourinary: Negative for dysuria, hematuria and urgency. Musculoskeletal: Negative for myalgias. Skin: Negative for rash. Neurological: Negative for dizziness, seizures and light-headedness. Psychiatric/Behavioral: Negative for agitation and behavioral problems. All other systems reviewed and are negative. Labs: CBC: No results found for: WBC, RBC, HGB, HCT, MCV, MCH, MCHC, RDW, PLT, MPV PHYSICAL EXAM: Vitals: 06/15/24 2358 BP: 115/68 Pulse: 103 Resp: 18 Temp: 37.1 C (98.7 F) TempSrc: Oral SpO2: 100% General appearance: awake, alert, cooperative, no apparent distress, and appears stated age Neurologic: Awake, alert, oriented to name, place and time. Lungs: No increased work of breathing, good air exchange Abdomen: Soft, non tender, gravid, consistent with her gestational age Sterile Speculum Exam: Membranes: Intact HSV Lesions: not applicable Cervix: Closed Contraction frequency: irritable in triage Fetus: Presentation: vertex by U/S ASSESSMENT AND PLAN: LABOR DELIVERY ??? SCD's ONLY (labor through ambulation) SCD's PLUS Prophylactic Anticoagulation until discharge SCD's PLUS Prophylactic Anticoagulation for 6 weeks SCD's PLUS Therapeutic Anticoagulation for 6 weeks Vaginal Delivery [] BMI >= 40 kg/m2 Delivery All patients Vaginal Delivery [] BMI >= 40 kg/m2 AND [] Antepartum hospitalization >= 72 hours within the past month Delivery 1 Major Risk Factor: [] BMI >= 35 kg/m2 [] Low Risk Thrombophilia [] PPH+RBCs, IR, or operation [] Infection+Antibiotics [] Antepartum hospitalization >= 72 hours within the past month [] PMH: Sickle Cell, SLE, Cardiac Dz, Active IBD, Active Cancer, Nephrotic Syndrome OR 2 Minor Risk Factors: [] Multiple gestation [] Age > 40 [] PPH >= 1,000cc [] (+)FMH of VTE [] Smoker [] Preeclampsia [] BMI >= 40 kg/m2 AND [] Low Risk Thrombophilia OR ANY OF THE FOLLOWING: [] High Risk Thrombophilia without prior VTE [] Low Risk Thrombophilia with (+)FMH of VTE [] Any single prior VTE ANY OF THE FOLLOWING: [] Already on LMWH/UFH [] Multiple prior VTE [] High Risk Thrombophilia with prior VTE Low Risk Thrombophilia: FVL (heterozygous), Prothrombin (heterozygous), Protein C, Protein S High Risk Thrombophilia: FVL (homozygous), Prothrombin (homozygous), FVL+Prothrombin (heterozygous), Antithrombin III, APLS VTE Prophylaxis: Not Indicated Admission: Admit to Antepartum (PNU) FHR: Category 1, heart monitoring CEFM Labs: GBS ordered GC/CT ordered Urine ordered FFN not obtained Type&Screen ordered Serum Labs CBC CMP Consults: General Surgery Imaging: ordered Growth US and BPP Diet: NPO Testing: tbd Timing and Route of Delivery: tbd Medications: Neuroprotection Not indicated Tocolysis Indicated/ordered Antibiotics Not indicated Steroids: Betamethasone - indicated and ordered Appendicitis -Increasing right lower quadrant pain or discomfort that started on Saturday -CT A/P at that time noted concern for colitis and patient was started on Augmentin -Continued worsening abdominal pain throughout the day and represented to hospital on 06/15 in whichan MRI was performed that noted concern for acute appendicitis with an edematous appendix without evidence of focal abscess -Patient was given 1 dose of Zosyn at 2100 on 06/15 and transferred to [facility] for further evaluation -On arrival to triage, patient is tachycardic into the 100s bpm and uncomfortable appearing with rebound and guarding to the right lower quadrant -Cervix closed on digital examination, Vertex on bedside ultrasound -WBC at [facility] was 15.6 and did appear to meet sepsis criteria with a pulse of 130 on admission -Repeat labs ordered on admission to [facility] -General Surgery consulted, appreciate excellent care and recommendations -NPO with LR ordered -Discussed pain control options, patient requiring IV medications, will order morphine -Cat I FHT -Concern given need for possible surgery, will plan for BMZ x2 by 24h -SEARCH ENGINE OPTIMIZATION MANAGER notified, will have warmer available in the OR -Dicussed with Dr. Aguirre, will plan for tocolysis following surgery with 10mg q10m x3 doses [id number] for 48h -Will plan for CEFM until pre procedure and post, spot check while intubated but given abdominal surgery, defer intra-op monitoring per Dr. Aguirre -Dr. Heller is updated and will be in house at time of surgery in case of need of emergency delivery - We discussed the need for possible emergent delivery in the event of a nonreassuring heart pattern which patient is agreeable towards, discussed the risk of injury to surrounding structures, infection and bleeding - We discussed the need for adverse reactions and events with the appendectomy for by general surgery on effects of maternal and needs which may include but not limited to contractions, active labor, nonreassuring heart rate, delayed labor, PROM, pain - delivery equipment to be available in the operating room - Patient plan to recover and post op PACU and will obtain continuous heart rate monitoring and then return to labor and delivery for extended monitoring - Additional antibiotics per general surgery state -Will plan to obtain records -New OB labs reordered IUP @ 32w0d - Dating by LMP - vertex 06/16 - Monitoring: CEFM - Diet: NPO - BMZ x1 on 06/[address] Aguirre, who agrees with plan. Miriam Zaldivar DO 06/16/2024, 1:11 AM Cc: Ozzie Aguirre, * Cosigned by Ozzie Aguirre MD at 06/16/2024 11:44 AM EDT Associated attestation - Ozzie Aguirre MD - 06/16/2024 11:44 AM EDT Hospital Care (Independent): I independently saw and evaluated the patient. I agree with the findings and plan of care as documented in the resident's note. Kalli Morgan is a 28 y.o. at 32w0d who is admitted for treatment of acute appendicitis. The patient was seen at [facility] in the emergency department where she was noted to have acute appendicitis. She was transferred here for acute treatment as that facility did not have the personnel to treat her condition. BP 101/64 Pulse 116 Temp 36.9 C (98.4 F) (Temporal) Resp 20 SpO2 95% Perioperative -- patient was counseled at the time of admission by admitting obstetrics team with my input. Non-obstetrical surgery is indicated in this case for maternal and benefit. Do not expect complications related to anesthetic agents. Would recommend pre/post-procedure monitoringfor this patient. Plan for FHT periodically during procedure as able, though likely limited secondary to laparoscopic approach and that is ok. Due to infectious/inflammatory nature of condition, there is the potential for labor process. Will plan course of BMZ. Otherwise, also plan nifedipine for 48 hours. FWB -- reactive tracing post-procedure when seen on rounds; BPP 10/02 with normal growth today. A 2VCis noted. Plan for post-operative care per GenSurg team and appreciate their care for this patient. Patient admitted to [facility] service due to gestational age and will happily continue to manage from obstetrical perspective. Surgical team to manage from post-operative perspective. Duration of admission per surgical team, but anticipate will be able to advance diet and probable discharge home tomorrow after completion of BMZ/tocolysis if stable. Delma Aguirre MD [facility] Maternal- Medicine This documentation was prepared using [employer] voice recognition software. As a result, errors may occur. When identified, these errors have been corrected. While every attempt is made to correct errors during dictation, errors may still exist. [id number] Note Attestation signed by Ozzie Aguirre MD at 06/16/2024 11:44 AM Hospital Care (Independent): I independently saw and evaluated the patient. I agree with the findings and plan of care as documented in the resident's note. Kalli Morgan is a 28 y.o. at 32w0d who is admitted for treatment of acute appendicitis. The patient was seen at [facility] in the emergency department where she was noted to have acute appendicitis. She was transferred here for acute treatment as that facility did not have the personnel to treat her condition. BP 101/64 Pulse 116 Temp 36.9 ?C (98.4 ?F) (Temporal) Resp 20 SpO2 95% Perioperative -- patient was counseled at the time of admission by admitting obstetrics team with my input. Non-obstetrical surgery is indicated in this case for maternal and benefit. Do not expect complications related to anesthetic agents. Would recommend pre/post-procedure monitoring for this patient. Plan for FHT periodically during procedure as able, though likely limited secondary to laparoscopic approach and that is ok. Due to infectious/inflammatory nature of condition, there is the potential for labor process. Will plan course of BMZ. Otherwise, also plan nifedipine for 48 hours. FWB -- reactive tracing post-procedure when seen on rounds; BPP 8/8 with normal growth today. A 2VC is noted. Plan for post-operative care per GenSurg team and appreciate their care for this patient. Patient admitted to [facility] service due to gestational age and will happily continue to manage from obstetrical perspective. Surgical team to manage from post-operative perspective. Duration of admission per surgical team, but anticipate will be able to advance diet and probable discharge home tomorrow after completion of BMZ/tocolysis if stable. Delma Aguirre MD [facility] Maternal- Medicine This documentation was prepared using [employer] voice recognition software. As a result, errors may occur. When identified, these errors have been corrected. While every attempt is made to correct errors during dictation, errors may still exist. Department of Maternal Medicine History and Physical CHIEF COMPLAINT: Appendicitis HISTORY OF PRESENT ILLNESS: The patient is a 28 y.o. female at 32w0d. OB History 2 Para 1 Term 1 AB Living SAB IAB Ectopic Multiple Live Births Patient presents with a chief complaint as above and is being admitted for acute appendicitis patient was seen in [facility] on 06/14 and 06/15 for abdominal pain and discomfort. On 06/14, patient reported A CT scan that noted no acute abnormalities and patient was diagnosed with colitis. Patient was started on Augmentin. Patient reported that her right lower quadrant pain continued to increase and worsen over the course of the weekend. Represented on 06/15 for worsening pain. MRI of the pelvis was done which noted concerns for an acute appendicitis with an edematous appendix, no obvious focal abscess. Patient was recommended transfer to [facility] for further evaluation. While in triage, patient continues to have worsening abdominal pain and discomfort. Rates her pain an 8 out of 10. Patient received 1 dose of Zosyn while in transport on 06/15 at 2100. Patient reports that her pain medications have not relieved her discomfort. Transport: Yes Prior Hospitalizations: No Estimated Due Date: Estimated Date of Delivery: 08/11/24 CARE: Complications: See below PAST OB HISTORY: OB History 2 Para 1 Term 1 AB Living SAB IAB Ectopic Multiple Live Births Detailed OB History Term Current Past Medical History: History reviewed. No pertinent past medical history. Past Surgical History: Past Surgical History: Procedure Laterality Date OOPHORECTOMY Right Allergies: Patient has no known allergies. Social History: Social History Socioeconomic History Marital status: Spouse name: Not on file Number of children: Not on file Years of education: Not on file Highest education level: Not on file Occupational History Not on file Tobacco Use Smoking status: Never Smokeless tobacco: Never Vaping Use Vaping status: Never Used Substance and Sexual Activity Alcohol use: Not Currently Drug use: Never Sexual activity: Not on file Other Topics Concern Not on file Social History Narrative Not on file Social Drivers of Health Financial Resource Strain: Not on file Food Insecurity: Not on file Transportation Needs: Not on file Physical Activity: Not on file Stress: Not on file Social Connect (more content not included)...[facility]04-22-2025 History and physical note* Miriamjose l Zaldivar DO - 06/16/2024 1:11 AM EDT Department of Maternal Medicine History and Physical CHIEF COMPLAINT: Appendicitis HISTORY OF PRESENT ILLNESS: The patient is a 28 y.o. female at 32w0d. OB History 2 Para 1 Term 1 AB Living SAB IAB Ectopic Multiple Live Births Patient presents with a chief complaint as above and is being admitted for acute appendicitis patient was seen in [facility] on 06/14 and 06/15 for abdominal pain and discomfort. On 06/14, patientreported A CT scan that noted no acute abnormalities and patient was diagnosed with colitis. Patient was started on Augmentin. Patient reported that her right lower quadrant pain continued to increase and worsen over the course of the weekend. Represented on 06/15 for worsening pain. MRI of the pelvis was done which noted concerns for an acute appendicitis with an edematous appendix, no obvious focal abscess. Patient was recommended transfer to [facility] for further evaluation. While in triage, patient continues to have worsening abdominal pain and discomfort. Rates her pain an 8 out of 10. Patient received 1 dose of Zosyn while in transport on 06/15 at 2100. Patient reports that her pain medications have not relieved her discomfort. Transport: Yes Prior Hospitalizations: No Estimated Due Date: Estimated Date of Delivery: 08/11/24 CARE: Complications: See below PAST OB HISTORY: OB History 2 Para 1 Term 1 AB Living SAB IAB Ectopic Multiple Live Births Detailed OB History Term Current Past Medical History: History reviewed. No pertinent past medical history. Past Surgical History: Past Surgical History: Procedure Laterality Date OOPHORECTOMY Right Allergies: Patient has no known allergies. Social History: Social History Socioeconomic History Marital status: Spouse name: Not on file Number of children: Not on file Years of education: Not on file Highest education level: Not on file Occupational History Not on file Tobacco Use Smoking status: Never Smokeless tobacco: Never Vaping Use Vaping status: Never Used Substance and Sexual Activity Alcohol use: Not Currently Drug use: Never Sexual activity: Not on file Other Topics Concern Not on file Social History Narrative Not on file Social Drivers of Health Financial Resource Strain: Not on file Food Insecurity: Not on file Transportation Needs: Not on file Physical Activity: Not on file Stress: Not on file Social Connections: Not on file Intimate Partner Violence: Not on file Housing Stability: Not on file Family History: No family history on file. Medications Prior to Admission: No medications prior to admission. REVIEW OF SYSTEMS: Review of Systems Constitutional: Negative for activity change, chills and fever. HENT: Negative for congestion, sinus pain and sore throat. Eyes: Negative for redness. Respiratory: Negative for cough and shortness of breath. Cardiovascular: Negative for chest pain. Gastrointestinal: Positive for abdominal pain and nausea. Negative for abdominal distention, diarrhea and vomiting. Genitourinary: Negative for dysuria, hematuria and urgency. Musculoskeletal: Negative for myalgias. Skin: Negative for rash. Neurological: Negative for dizziness, seizures and light-headedness. Psychiatric/Behavioral: Negative for agitation and behavioral problems. All other systems reviewed and are negative. Labs: CBC: No results found for: WBC, RBC, HGB, HCT, MCV, MCH, MCHC, RDW, PLT, MPV PHYSICAL EXAM: Vitals: 06/15/24 2358 BP: 115/68 Pulse: 103 Resp: 18 Temp: 37.1 C (98.7 F) TempSrc: Oral SpO2: 100% General appearance: awake, alert, cooperative, no apparent distress, and appears stated age Neurologic: Awake, alert, oriented to name, place and time. Lungs: No increased work of breathing, good air exchange Abdomen: Soft, non tender, gravid, consistent with her gestational age Sterile Speculum Exam: Membranes: Intact HSV Lesions: not applicable Cervix: Closed Contraction frequency: irritable in triage Fetus: Presentation: vertex by U/S ASSESSMENT AND PLAN: LABOR DELIVERY ??? SCD's ONLY (labor through ambulation) SCD's PLUS Prophylactic Anticoagulation until discharge SCD's PLUS Prophylactic Anticoagulation for 6 weeks SCD's PLUS Therapeutic Anticoagulation for 6 weeks Vaginal Delivery [] BMI >= 40 kg/m2 Delivery All patients Vaginal Delivery [] BMI >= 40 kg/m2 AND [] Antepartum hospitalization >= 72 hours within the past month Delivery 1 Major Risk Factor: [] BMI >= 35 kg/m2 [] Low Risk Thrombophilia [] PPH+RBCs, IR, or operation [] Infection+Antibiotics [] Antepartum hospitalization >= 72 hours within the past month [] PMH: Sickle Cell, SLE, Cardiac Dz, Active IBD, Active Cancer, Nephrotic Syndrome OR 2 Minor Risk Factors: [] Multiple gestation [] Age > 40 [] PPH >= 1,000cc [] (+)FMH of VTE [] Smoker [] Preeclampsia [] BMI >= 40 kg/m2 AND [] Low Risk Thrombophilia OR ANY OF THE FOLLOWING: [] High Risk Thrombophilia without prior VTE [] Low Risk Thrombophilia with (+)FMH of VTE [] Any single prior VTE ANY OF THE FOLLOWING: [] Already on LMWH/UFH [] Multiple prior VTE [] High Risk Thrombophilia with prior VTE Low Risk Thrombophilia: FVL (heterozygous), Prothrombin (heterozygous), Protein C, Protein S High Risk Thrombophilia: FVL (homozygous), Prothrombin (homozygous), FVL+Prothrombin (heterozygous), Antithrombin III, APLS VTE Prophylaxis: Not Indicated Admission: Admit to Antepartum (PNU) FHR: Category 1, heart monitoring CEFM Labs: GBS ordered GC/CT ordered Urine ordered FFN not obtained Type&Screen ordered Serum Labs CBC CMP Consults: General Surgery Imaging: ordered Growth US and BPP Diet: NPO Testing: tbd Timing and Route of Delivery: tbd Medications: Neuroprotection Not indicated Tocolysis Indicated/ordered Antibiotics Not indicated Steroids: Betamethasone - indicated and ordered Appendicitis -Increasing right lower quadrant pain or discomfort that started on Saturday -CT A/P at that time noted concern for colitis and patient was started on Augmentin -Continued worsening abdominal pain throughout the day and represented to hospital on 06/15 in whichan MRI was performed that noted concern for acute appendicitis with an edematous appendix without evidence of focal abscess -Patient was given 1 dose of Zosyn at 2100 on 06/15 and transferred to [facility] for further evaluation -On arrival to triage, patient is tachycardic into the 100s bpm and uncomfortable appearing with rebound and guarding to the right lower quadrant -Cervix closed on digital examination, Vertex on bedside ultrasound -WBC at [facility] was 15.6 and did appear to meet sepsis criteria with a pulse of 130 on admission -Repeat labs ordered on admission to [facility] -General Surgery consulted, appreciate excellent care and recommendations -NPO with LR ordered -Discussed pain control options, patient requiring IV medications, will order morphine -Cat I FHT -Concern given need for possible surgery, will plan for BMZ x2 by 24h -SEARCH ENGINE OPTIMIZATION MANAGER notified, will have warmer available in the OR -Dicussed with Dr. Aguirre, will plan for tocolysis following surgery with 10mg q10m x3 doses [id number] for 48h -Will plan for CEFM until pre procedure and post, spot check while intubated but given abdominal surgery, defer intra-op monitoring per Dr. Aguirre -Dr. Heller is updated and will be in house at time of surgery in case of need of emergency delivery - We discussed the need for possible emergent delivery in the event of a nonreassuring heart pattern which patient is agreeable towards, discussed the risk of injury to surrounding structures, infection and bleeding - We discussed the need for adverse reactions and events with the appendectomy for by general surgery on effects of maternal and needs which may include but not limited to contractions, active labor, nonreassuring heart rate, delayed labor, PROM, pain - delivery equipment to be available in the operating room - Patient plan to recover and post op PACU and will obtain continuous heart rate monitoring and then return to labor and delivery for extended monitoring - Additional antibiotics per general surgery state -Will plan to obtain records -New OB labs reordered IUP @ 32w0d - Dating by LMP - vertex 06/16 - Monitoring: CEFM - Diet: NPO - BMZ x1 on 06/[address] Aguirre, who agrees with plan. Miriam Zaldivar DO 06/16/2024, 1:11 AM Cc: Ozzie Aguirre, * Cosigned by Ozzie Aguirre MD at 06/16/2024 11:44 AM EDT Associated attestation - Ozzie Aguirre MD - 06/16/2024 11:44 AM EDT Hospital Care (Independent): I independently saw and evaluated the patient. I agree with the findings and plan of care as documented in the resident's note. Kalli Morgan is a 28 y.o. at 32w0d who is admitted for treatment of acute appendicitis. The patient was seen at [facility] in the emergency department where she was noted to have acute appendicitis. She was transferred here for acute treatment as that facility did not have the personnel to treat her condition. BP 101/64 Pulse 116 Temp 36.9 C (98.4 F) (Temporal) Resp 20 SpO2 95% Perioperative -- patient was counseled at the time of admission by admitting obstetrics team with my input. Non-obstetrical surgery is indicated in this case for maternal and benefit. Do not expect complications related to anesthetic agents. Would recommend pre/post-procedure monitoringfor this patient. Plan for FHT periodically during procedure as able, though likely limited secondary to laparoscopic approach and that is ok. Due to infectious/inflammatory nature of condition, there is the potential for labor process. Will plan course of BMZ. Otherwise, also plan nifedipine for 48 hours. FWB -- reactive tracing post-procedure when seen on rounds; BPP 10/02 with normal growth today. A 2VCis noted. Plan for post-operative care per GenSurg team and appreciate their care for this patient. Patient admitted to [facility] service due to gestational age and will happily continue to manage from obstetrical perspective. Surgical team to manage from post-operative perspective. Duration of admission per surgical team, but anticipate will be able to advance diet and probable discharge home tomorrow after completion of BMZ/tocolysis if stable. Delma Aguirre MD [facility] Maternal- Medicine This documentation was prepared using [employer] voice recognition software. As a result, errors may occur. When identified, these errors have been corrected. While every attempt is made to correct errors during dictation, errors may still exist. documented in this [facility]04-22-2025 Consult note* Hubert Haskins MD - 06/16/2024 12:31 AM EDT Images from the original note were not included. Department of General Surgery Surgical Service - [facility] Resident Consult Note 06/16/2024 CHIEF COMPLAINT: No chief complaint on file. Reason for Consult: Acute appendicitis HISTORY OF PRESENT ILLNESS: Kalli Morgan is a 28 y.o. female that is 32 weeks with significant past history of right ovary excision who presents as a transfer from [facility] ED to OB triage for acute appendicitis. Surgerywas consulted for evaluation. Patient states right sided abdominal pain began on Saturday and progressively worsened. She presented to [facility] ED and had a CT scan, was diagnosed with colitis and sent home on oral antibiotics. Patient states right sided abdominal pain and nausea continued to worsen. She represented to the [facility] ED on 06/15 and had an MRI which demonstrated acute appendicitis without abscess. Patient was thentransferred to [facility] OB triage. Patient reports significant right sided abdominal pain. Patient reports nausea but denies vomiting. On evaluation patient was afebrile, tachycardic and normotensive. OSH labs reviewed significant for: WBC 15.6. Repeat labs at [facility] pending. MRI abdomen at [facility] on 06/15 demonstrated acute appendicitis. The CT scan was unavailable but peravailable notes the appendix was not well visualized. History reviewed. No pertinent past medical history. Past Surgical History: Procedure Laterality Date OOPHORECTOMY Right Medications Prior to Admission: No current facility-administered medications for this encounter. Allergies: Patient has no known allergies. Social History Socioeconomic History Marital status: Tobacco Use Smoking status: Never Smokeless tobacco: Never Vaping Use Vaping status: Never Used Substance and Sexual Activity Alcohol use: Not Currently Drug use: Never No family history on file. REVIEW OF SYSTEMS: Review of Systems Constitutional: Negative for chills and fever. Respiratory: Negative for cough, chest tightness and shortness of breath. Cardiovascular: Negative for chest pain. Gastrointestinal: Positive for abdominal pain and nausea. Negative for vomiting. Genitourinary: 32 weeks Skin: Negative for color change. Neurological: Negative for dizziness, light-headedness and headaches. PHYSICAL EXAM: Vitals: 06/15/24 2358 BP: 115/68 Pulse: 103 Resp: 18 Temp: 37.1 C (98.7 F) SpO2: 100% No intake/output data recorded. CONSTITUTIONAL: awake, alert, cooperative, no apparent distress HEENT: No scleral icterus, EOMI NECK: Supple, no thyromegaly LUNGS: No increased work of breathing, good air exchange CARDIOVASCULAR: Well perfused, RRR ABDOMEN: Gravid, soft, significantly tender in right abdomen superior to uterus with focally peritoneal GENITAL/URINARY: Not examined MUSCULOSKELETAL: There is no redness, warmth, or swelling of the joints. Full range of motion noted. NEUROLOGIC: Awake, alert, oriented to name, place and time. SKIN: normal skin color, texture, no redness, warmth, or swelling DATA: CBC: No results found for: WBC, RBC, HGB, HCT, MCV, MCH, MCHC, RDW, PLT, MPV BMP: No results found for: NA, K, CL, CO2, BUN, CREATININE, CALCIUM, LABGLOM, GLUCOSE, GLU Hepatic Function Panel: No results found for: ALKPHOS, ALT, AST, PROT, BILITOT, BILIDIR PT/INR: No results found for: PROTIME, INR Troponin: No results found for: TROPONINI LIPASE: No results found for: LIPASE IMAGING: No image results found. ASSESSMENT AND PLAN: Kalli oMrgan is a 28 y.o. female that is 32 weeks that presents with acute appendicitis. - Plan for emergent laparoscopic appendectomy - OB coordinating perioperative monitoring - IV Zosyn - Written consent obtained - Will follow up labs - Rest of care per primary - Surgery will continue to follow Patient discussed with attending, Dr. Farley. Hubert Haskins MD General Surgery PGY-1 Pager #[phone] Cosigned by Shawn Farley MD at 06/16/2024 2:47 AM EDT Associated attestation - Shawn Farley MD - 06/16/2024 2:47 AM EDT ATTENDING ADDENDUM Patient Active Problem List Diagnosis Acute appendicitis affecting Appendix disease I personally supervised the resident or PATTERN CHANGER AND REPAIRER/PA-C in the evaluation and development of a treatment plan for this patient on the same day of service as above. I personally discussed the review of systems and interviewed the patient along with performing a physical examination. In addition, I discussed the patient's condition and treatment options with him/her when possible. All of the patient's questions were answered and family updated when appropriate and possible. I performed a physical exam and ROS on the same date of service as above. A complete review of systems was obtained and is negative except as stated in HPI and/or Subjective Section. My findings agree with the above note except for any details corrected below. 28F presented to [facility] on 06/15 in her 32nd week of with 3 days of right sided abdominal pain, leukocytosis (WBC 15) and tachycardia (HR 130s) and MRI showing a dilated appendix with inflammatory stranding consistent with acute appendicitis. She had also presented a day earlier, on 06/14 with right sided abdominal pain, but the appendix was not visualized on CT scan. She was discharged from the ED on Augmentin. On arrival to [facility] OB triage, she is mildly tachycardic (HR 100s), and repeat CBC shows improved leukocytosis (WBC 13.6), T bili is 0.5. She is tender in the right faheem-abdomen with focal peritonitis.She is in mild acute distress due to pain, which is worse with movement. I am able to see her MRI abdomen is PACS from 06/15, however I do not have access to her CT scan. The appendix appears dilated and in a very posterior position in the right faheem-abdomen. She has a history of a laparoscopic oophorectomy (she does not recall which side). I recommended a laparoscopic appendectomy. We discussed the details of the procedure, including risks such as injury to surrounding organs (including the uterus), bleeding, trocar injury, and need for laparotomy. We discussed this case with OB, and plan to proceed with pre- and post-op monitoring. The [facility] NICU teams have been made aware. The patient expressed understanding and agrees to proceed with surgery. Level of Medical Decision Making: risk of morbidity from additional diagnostic testing or treatmentdue to acute appendicitis in third trimester [x]High []Moderate []Low Complexity: Acute or chronic illness posing a threat to life (HIGH) Risk: Decision regarding emergency major surgery (HIGH) Personally Reviewed/Independently interpreted patient's: [x]Epic notes [x]Radiology studies [x]Labs []EKG []Ordering tests []Other Discussed/ With: [x]Patient/Family []RN [x]Consultants []SW/TCC []Other I spent total time of 80 minutes reviewing previous notes, test results, and face to face with VickiEva discussing the diagnosis and importance of compliance with the treatment plan as well as documenting on the day of the visit. Shawn Farley MD Division of Trauma Department of Surgery [facility]04-22-2025 Consult note* Hubert Haskins MD - 06/16/2024 12:31 AM EDT Images from the original note were not included. Department of General Surgery Surgical Service - ACS Resident Consult Note 06/16/2024 CHIEF COMPLAINT: No chief complaint on file. Reason for Consult: Acute appendicitis HISTORY OF PRESENT ILLNESS: Kalli Morgan is a 28 y.o. female that is 32 weeks with significant past history of right ovary excision who presents as a transfer from [facility] ED to OB triage for acute appendicitis. Surgerywas consulted for evaluation. Patient states right sided abdominal pain began on Saturday and progressively worsened. She presented to [facility] ED and had a CT scan, was diagnosed with colitis and sent home on oral antibiotics. Patient states right sided abdominal pain and nausea continued to worsen. She represented to the [facility] ED on 06/15 and had an MRI which demonstrated acute appendicitis without abscess. Patient was thentransferred to [facility] OB triage. Patient reports significant right sided abdominal pain. Patient reports nausea but denies vomiting. On evaluation patient was afebrile, tachycardic and normotensive. OSH labs reviewed significant for: WBC 15.6. Repeat labs at [facility] pending. MRI abdomen at [facility] on 06/15 demonstrated acute appendicitis. The CT scan was unavailable but peravailable notes the appendix was not well visualized. History reviewed. No pertinent past medical history. Past Surgical History: Procedure Laterality Date OOPHORECTOMY Right Medications Prior to Admission: No current facility-administered medications for this encounter. Allergies: Patient has no known allergies. Social History Socioeconomic History Marital status: Tobacco Use Smoking status: Never Smokeless tobacco: Never Vaping Use Vaping status: Never Used Substance and Sexual Activity Alcohol use: Not Currently Drug use: Never No family history on file. REVIEW OF SYSTEMS: Review of Systems Constitutional: Negative for chills and fever. Respiratory: Negative for cough, chest tightness and shortness of breath. Cardiovascular: Negative for chest pain. Gastrointestinal: Positive for abdominal pain and nausea. Negative for vomiting. Genitourinary: 32 weeks Skin: Negative for color change. Neurological: Negative for dizziness, light-headedness and headaches. PHYSICAL EXAM: Vitals: 06/15/24 2358 BP: 115/68 Pulse: 103 Resp: 18 Temp: 37.1 C (98.7 F) SpO2: 100% No intake/output data recorded. CONSTITUTIONAL: awake, alert, cooperative, no apparent distress HEENT: No scleral icterus, EOMI NECK: Supple, no thyromegaly LUNGS: No increased work of breathing, good air exchange CARDIOVASCULAR: Well perfused, RRR ABDOMEN: Gravid, soft, significantly tender in right abdomen superior to uterus with focally peritoneal GENITAL/URINARY: Not examined MUSCULOSKELETAL: There is no redness, warmth, or swelling of the joints. Full range of motion noted. NEUROLOGIC: Awake, alert, oriented to name, place and time. SKIN: normal skin color, texture, no redness, warmth, or swelling DATA: CBC: No results found for: WBC, RBC, HGB, HCT, MCV, MCH, MCHC, RDW, PLT, MPV BMP: No results found for: NA, K, CL, CO2, BUN, CREATININE, CALCIUM, LABGLOM, GLUCOSE, GLU Hepatic Function Panel: No results found for: ALKPHOS, ALT, AST, PROT, BILITOT, BILIDIR PT/INR: No results found for: PROTIME, INR Troponin: No results found for: TROPONINI LIPASE: No results found for: LIPASE IMAGING: No image results found. ASSESSMENT AND PLAN: Kalli Morgan is a 28 y.o. female that is 32 weeks that presents with acute appendicitis. - Plan for emergent laparoscopic appendectomy - OB coordinating perioperative monitoring - IV Zosyn - Written consent obtained - Will follow up labs - Rest of care per primary - Surgery will continue to follow Patient discussed with attending, Dr. Farley. Hubert Haskins MD General Surgery PGY-1 Pager #[phone] Cosigned by Shawn Farley MD at 06/16/2024 2:47 AM EDT Associated attestation - Shawn Farley MD - 06/16/2024 2:47 AM EDT ATTENDING ADDENDUM Patient Active Problem List Diagnosis Acute appendicitis affecting Appendix disease I personally supervised the resident or PATTERN CHANGER AND REPAIRER/PA-C in the evaluation and development of a treatment plan for this patient on the same day of service as above. I personally discussed the review of systems and interviewed the patient along with performing a physical examination. In addition, I discussed the patient's condition and treatment options with him/her when possible. All of the patient's questions were answered and family updated when appropriate and possible. I performed a physical exam and ROS on the same date of service as above. A complete review of systems was obtained and is negative except as stated in HPI and/or Subjective Section. My findings agree with the above note except for any details corrected below. 28F presented to [facility] on 06/15 in her 32nd week of with 3 days of right sided abdominal pain, leukocytosis (WBC 15) and tachycardia (HR 130s) and MRI showing a dilated appendix with inflammatory stranding consistent with acute appendicitis. She had also presented a day earlier, on 06/14 with right sided abdominal pain, but the appendix was not visualized on CT scan. She was discharged from the ED on Augmentin. On arrival to [facility] OB triage, she is mildly tachycardic (HR 100s), and repeat CBC shows improved leukocytosis (WBC 13.6), T bili is 0.5. She is tender in the right faheem-abdomen with focal peritonitis.She is in mild acute distress due to pain, which is worse with movement. I am able to see her MRI abdomen is PACS from 06/15, however I do not have access to her CT scan. The appendix appears dilated and in a very posterior position in the right faheem-abdomen. She has a history of a laparoscopic oophorectomy (she does not recall which side). I recommended a laparoscopic appendectomy. We discussed the details of the procedure, including risks such as injury to surrounding organs (including the uterus), bleeding, trocar injury, and need for laparotomy. We discussed this case with OB, and plan to proceed with pre- and post-op monitoring. The [facility] NICU teams have been made aware. The patient expressed understanding and agrees to proceed with surgery. Level of Medical Decision Making: risk of morbidity from additional diagnostic testing or treatmentdue to acute appendicitis in third trimester [x]High []Moderate []Low Complexity: Acute or chronic illness posing a threat to life (HIGH) Risk: Decision regarding emergency major surgery (HIGH) Personally Reviewed/Independently interpreted patient's: [x]Epic notes [x]Radiology studies [x]Labs []EKG []Ordering tests []Other Discussed/ With: [x]Patient/Family []RN [x]Consultants []SW/TCC []Other I spent total time of 80 minutes reviewing previous notes, test results, and face to face with Jared discussing the diagnosis and importance of compliance with the treatment plan as well as documenting on the day of the visit. Shawn Farley MD Division of Trauma Department of Surgery [facility] documented in this [facility]04-20-2025 Discharge summary [facility] Medical Records Department [address] [place] [address] Emergency Department Summary 06/14/24 MR#: [id number] Acct: [id number] Name: KALLI MORGAN Rep #:[id number] : 1995 28 From: Benjamin Jacobson PCP: BOB Driver Status:REG ER Location: ED HPI HPI - GI History of Present Illness Chief Complaint: Abd Pain Informant: patient Abdominal Pain/Flank Pain Onset: Yesterday Context: Gradual Onset Timing: Continuous Quality: Sharp Location: RLQ Worsened by: Movement and - (Bending) Relieved by: Nothing Nausea/Vomiting/Emesis GI Symptom: Positive for Nausea; Negative for Vomiting Diarrhea/Melena/Hematochezia GI Symptom: Negative for Diarrhea, Melena or Hematochezia Associated Symptoms Associated Symptoms: Negative for Dysuria, Frequency or Hematuria Narrative Narrative: Presents with right lower abdominal pain that has been getting worse since yesterday. Patient states is gradually getting worse. Patient states it has been constant. Patient describes her pain as sharp. Patient states it is mainly over the right lower abdomen. Patient states it is worse with bending and with movement. Patient admits to some nausea but denies any vomiting. Patient admits to decreased appetite. Patient denies any diarrhea, melena, or hematochezia. Patient denies any urinary complaints. Patient is 31 weeks and 5days . Patient is 2 para 1. Patient was seen in the OB unit and had a nonstress test done which was negative. Patient had a CBC drawn therewhich showed a leukocytosis of 14.3. Patient also had a urinalysis there which was normal. The patient was then referred to the emergency department for possible appendicitis. [facility] Medical History Vaginal delivery Acute otitis media, left Acute frontal sinusitis, unspecified Non-smoker Pneumonia Home Medications ?Medication ?Instructions ?Recorded ?Last Taken ?Type wsxnuoow-vhe-Cm-FA 1 mg 1 tab PO DAILY supple ment 06/16/22 06/10/24 09:00 History tablet 1 TAB amoxicillin 875 mg-potassium 875 mg PO Q12H #20 TABLET S 06/14/24 Unknown Rx clavulanate 125 mg tablet Allergy/AdvReac Type Severity Reaction Status Date / Time No Known Allergies Allergy Verified 06/14/24 18:39 Family History Brother Heart disease Marfan syndrome Aunt Pancreatic cancer Surgical History History of gynecologic surgery Social History adopted: No household members: spouse and children number of children: 1 current occupation: [employer] current occupational exposures/hazards: No pets and animals: Yes history of recent travel: No sexually active: Yes Smoking Status: Never smoker alcohol intake: current alcohol intake frequency: holidays/special occasions only details: Not while substance use type: does not use well-balanced diet: daily or most days caffeine: Yes Type: coffee eating out: rarely or never during the past year weight has: remained stable what type of physical activity do you participate in: weight training frequency: 3-4 times per week duration: 30-45 minutes/day roderick/orthodox: Orthodox seatbelt use: always do you feel safe at home: Yes additional social history: : Adrien Peters [facility] ROS ED Constitutional Constitutional ED: Denies chills or fever(s) Eyes Eyes: Denies blurry vision or change in vision ENT ENT ED: Denies rhinorrhea or sore throat Cardiovascular Cardiovascular: Denies chest pain or palpitations Respiratory/Chest Respiratory/Chest: Denies cough or dyspnea Gastrointestinal Gastrointestinal: Reports abdominal pain and nausea; Denies vomiting Genitourinary Genitourinary ED: Denies dysuria or hematuria Musculoskeletal Musculoskeletal: Denies back pain or neck pain Integumentary Denies abscess or rash Neurologic Neurologic: Denies headache(s) or weakness Allergic/Immunologic Allergic/Immunologic ED: Denies mouth swelling or urticaria EXAM Physical Exam Const Vital Signs: 06/14/24 18:35 06/14/24 20:34 06/14/24 22:00 Temperature 97.7 F L Temperature Source Temporal Pulse Rate 104 H 105 H 100 Respiratory Rate 16 18 18 Blood Pressure 115/66 107/69 116/68 Blood Pressure Mean 82 81 84 Pulse Ox 100 97 97 Oxygen Delivery Method Room Air Room Air Room Air Positive well nourished and well developed General Appearance ED: well developed and NAD HEENT Reports moist mucous membranes Neck supple and no JVD Resp normal respiratory effort and clear to auscultation bilaterally Cardio regular rate and regular rhythm GI non-distended Auscultation: normoactive bowel sounds Palpation: soft Neuro CN's II-XII intact bilaterally, moves all extremities and no sensory deficits noted Sensorium / Orientation: alert Motor Exam: strength 5/5 throughout Psych mental status grossly normal MDM MDM MDM Narrative Medical decision making narrative: Differential diagnosis is appendicitis, round ligament pain, ovarian cyst, colitis, ureteral calculus, and pyelonephritis. Comprehensive metabolic profilewill be obtained to assess for hepatic function, renal function, and electrolyteabnormality. CT scan of the abdomen and pelvis will be obtained to assess for appendicitis, colitis, and pyelonephritis. History & Record Review Additional record(s) reviewed:: Prior outpatient record and Prior labs Lab Data Attestation: I reviewed the patient's lab results. Lab results narrative: Comprehensive metabolic profile was reviewed and was essentially within normal limits. Labs: Laboratory Results - last 24 hr 06/14/24 19:15 Sodium 138 Potassium 3.6 Chloride 105 Carbon Dioxide 20.5 L Anion Gap 13 BUN 5 Creatinine 0.45 L Estim Creat Clear Calc 204.41 Est GFR (MDRD) Non-Af 136 BUN/Creatinine Ratio 11.4 Glucose 84 Calcium 8.7 Total Bilirubin 0.31 AST 16 ALT 11 Alkaline Phosphatase 76 Total Protein 6.6 Albumin 3.6 Globulin 2.9 Albumin/Globulin Ratio 1.2 Radiography Diagnostic Testing: Clinical Impression(s) from Imaging Studies Abdomen/Pelvis CT 06/14/24 18:59 IMPRESSION: The appendix is not clearly visualized. No abnormal fluid collection to suggestacute appendicitis. Focal narrowing of the mid ascending colon, this may be secondary to peristalsisversus focal colitis. Evidence of an intrauterine fetus in the vertex position. Placenta is anterior. [facility] CT scan of the abdomen pelvis was obtained. The appendix is not clearly visualized. There is no abnormal fluid collection to suggest acute appendicitis. There is some focal narrowing of the mid ascending colon which may be secondary to peristalsis versus focal colitis. This was interpreted by the radiologist and was also independently reviewed by myself. Treatment and Re-Evaluation :: Patient was given IV fluids, morphine, and Zofran. Patient was given a repeat dose of morphine. Patient was advised of her findings. Case was discussed withDr. Lali Bro. She agrees with antibiotic treatment with Augmentin. Patient was given her first dose here. Patient was instructed to follow-up in 2to 3 days. Patient was instructed to return if worse in any way. Patient and spouse understood and were agreeable with the plan. All questions were answered. Discharge Plan Triage Chief Complaint: Abd Pain ED Provider: Benjamin Greenwood Dx/Rx/DC Orders Clinical Impression: Colitis, Instructions: ED Understanding Colitis Prescriptions: New amoxicillin-pot clavulanate 875-125 mg tablet 875 mg PO Q12H Qty: 20 0RF No Action 1 mg Tablet 1 tab PO DAILY Primary Care Provider: Madisyn Torres Referrals: Lali Bro MD [Med Staff - Active Staff] - 3-5 Days Madisyn Torres PA [Primary Care Provider] - 3-5 Days Print Language: Malaysian Disposition Disposition: Home, Self Care What to do if you have Problems For any increased pain, shortness of breath, bleeding, nausea or vomiting, chestpain, or any unexpected problems, contact your Primary Care Provider. Call [facility] ([phone]) or report tothe closest Emergency Room. Call 911 if necessary. 06/14/242225 Cosigner Signature (if applicable): CC: BOB Driver ~ Signed [facility]04-20-2025 Radiology Diagnostic study note [facility] Imaging Services [address] [place], [place] [address] Abdomen/Pelvis WITH Contrast MR#: [id number] Acct: [id number] Name: KALLI MORGAN Rep #: [id number] : 1995 F 28 From: Lee Ramirez DO PCP: BOB Driver Status: REG ER Study:Abdomen/Pelvis WITH Contrast Date of Ex am: 06/14/24 Exam# [id number] Ordering Dr: Benjamin Greenwood DO PROCEDURE: ABDOMEN/PELVIS WITH CONTRAST 06/14/2024 REASON FOR EXAM: ABDOMINAL PAIN TECHNIQUE: Abdomen and pelvis CT with intravenous contrast. Coronal and Sagittal reconstruction series were provided. PATIENT PREPARATION: Per protocol ORAL CONTRAST TYPE: None. AMOUNT: mL CONTRAST: Isovue 370 VOLUME: 100 mL Not Provided Gauge IV One or more dose reduction techniques were used (e.g., Automated exposure control, adjustment of the mA and/or kV according to patient size, use of iterative reconstruction technique. RADIATION DOSE SUMMARY: CTDlvol: 17 mGy DLP: 977 mGycm COMPARISON: None FINDINGS: Lung bases: Mild dependent atelectasis Liver: Normal size. No mass. Gallbladder: Unremarkable Spleen: Normal size. Pancreas: Normal size without evidence of mass surrounding inflammation or ductal dilation. Adrenals: Unremarkable Kidneys: Normal renal sizes. No hydronephrosis. Bladder: Unremarkable Reproductive Organs: There is evidence of an intrauterine fetus in vertex position. The placenta isanterior. Bowel: Stomach appears grossly unremarkable. Oral contrast reaches the mid small bowel. Distal small bowel is decompressed. Focal narrowing of the mid ascending colon, best appreciated on series 6 01 image number 77, this may be secondary to peristalsis versus focal colitis. The remaining large bowel is grossly unremarkable. Appendix: The appendix is not clearly visualized. Lymph nodes: No lymphadenopathy. Vasculature: Unremarkable Peritoneum / Retroperitoneum: No free air or free fluid. Bones: Unremarkable CT/Abdomen/Pelvis WITH Contrast IMPRESSION: The appendix is not clearly visualized. No abnormal fluid collection to suggestacute appendicitis. Focal narrowing of the mid ascending colon, this may be secondary to peristalsisversus focal colitis. Evidence of an intrauterine fetus in the vertex position. Placenta is anterior. Reading Location: [facility] CC: Dr. Benjamin Greenwood DO; BOB Driver ~ Test Bore Helper: Signed [facility]04-20-2025 Progress note [facility] Medical Records Department [address] [place] [address] OB Triage Progress Note 06/14/24 1815 MR#: [id number] Acct: [id number] Name: KALLI MORGAN Rep #:[id number] : 1995 28 From: Tova Prather CNM PCP: BOB Driver Status:REG CLI Y DOS: Location: [place] [address] Progress Notes Date of Service: 06/14/24 Progress Note: Patient presents for triage evaluation secondary to right sided abdominal pain FHT: 140 Moderate variability reactive no decelerations category I tracing [place]: irregular and mild Contractions Assessment and plan: urine and cbc unremarkable, but WBCs are slightly elevated from 3 weeks ago, Reactive NST, reassuring status patient to ER for evalutaiton. Dr Bro agrees with plan of care. See problem list details for additional plan information. Laboratory Studies: Laboratory Tests 06/14/24 06/14/24 Range/Units 17:20 16:50 WBC 14.3 H (4.4-11.0) K/mm3 RBC 3.63 L (4.2-5.4) M/mm3 Hgb 10.9 L (12.0-15.0) g/dL Hct 31.7 L (37-47) % MCV 87.3 (81-99) fL MCH 30.0 (27.0-32.0) pg MCHC 34.4 (32-36) g/dL RDW Std Deviation 42.3 (35.1-43.9) fl RDW Coeff of Po 13.5 (11.6-14.6) % Plt Count 194 (150-450) K/mm3 MPV 10.7 (6.2-12.0) fl Immature Gran % (Auto) 0.600 (0.0-0.9) % Neut % (Auto) 81.9 H (47-70) % Lymph % (Auto) 13.2 L (19-41) % [place]ke % (Auto) 3.4 (0-10) % Eos % (Auto) 0.7 (0-5) % Baso % (Auto) 0.2 (0-1) % Absolute Neuts (auto) 11.7 H (2.0-7.7) X10^3/uL Absolute Lymphs (auto) 1.89 (0.83-4.51) X10^3/uL Nucleated RBC % 0 (0-5) % Urine Color Yellow (Yellow) Urine Clarity Clear (Clear) Urine pH 7.0 (5.0 - 8.0) Ur Specific [place] 1.005 (1.002-1.030) Urine Protein Negative (Negative) mg/dl Urine Glucose (UA) Normal (Normal) mg/dl Urine Ketones 50 H (Negative) mg/dl Urine Occult Blood Negative (Negative) /ul Urine Nitrite Negative (Negative) Urine Bilirubin Negative (Negative) mg/dL Urine Urobilinogen Normal (Normal) mg/dl Ur Leukocyte Esterase Negative (Negative) /ul Charges/Coding Multi Select Codes Urinary/Genital Urinary/Genital CPT Codes: 48533-30 non-stress test Interp Assessment & Plan (1) Abdominal pain affecting : COMMENT: reactive NST. To ER for further evaluation. (2) Low lying placenta, antepartum: COMMENT: repeat US needed. did not get at 28 weeks (3) Family history of Marfan syndrome: COMMENT: Pt's brother...Pt has been tested and does NOT have (4) Supervision of normal : QUALIFIERS: Normal : other normal Trimester: third trimester QualifiedCode(s): Z34.83 - Encounter for supervision of other normal , third trimester COMMENT: PRR, , MAURICIO 08/12/24, PC: Sarmad, : Adrien (5) : QUALIFIERS: Weeks of gestation: 30 weeks Qualified Code(s): Z3A.30 - 30 weeks gestation of COMMENT: Discussed genetic/carrier testing AFP - declines, nl anatomy 06/14/24 1819 s ESTRADA> Date _ Tova Prather CNM Cosigner Signature (if applicable): Date CC: CNM Tova Crescencio; BOB Driver ~ Signed [facility]04-20-2025 Discharge summary Author Benjamin Greenwood [facility] Note Date/Time June 14, 2024 10: 26pm [facility] Medical Records Department [address] [place] [address] Emergency Department Summary 06/14/24 MR#: [id number] Acct: [id number] Name: KALLI MORGAN Rep #:[id number] : 1995 28 From: Benjamin Jacobson PCP: BOB Driver Status:REG ER Location: ED HPI HPI - GI History of Present Illness Chief Complaint: Abd Pain Informant: patient Abdominal Pain/Flank Pain Onset: Yesterday Context: Gradual Onset Timing: Continuous Quality: Sharp Location: RLQ Worsened by: Movement and - (Bending) Relieved by: Nothing Nausea/Vomiting/Emesis GI Symptom: Positive for Nausea; Negative for Vomiting Diarrhea/Melena/Hematochezia GI Symptom: Negative for Diarrhea, Melena or Hematochezia Associated Symptoms Associated Symptoms: Negative for Dysuria, Frequency or Hematuria Narrative Narrative: Presents with right lower abdominal pain that has been getting worse since yesterday. Patient states is gradually getting worse. Patient states it has been constant. Patient describes her pain as sharp. Patient states it is mainly over the right lower abdomen. Patient states it is worse with bending and with movement. Patient admits to some nausea but denies any vomiting. Patient admits to decreased appetite. Patient denies any diarrhea, melena, or hematochezia. Patient denies any urinary complaints. Patient is 31 weeks and 5days . Patient is 2 para 1. Patient was seen in the OB unit and had a nonstress test done which was negative. Patient had a CBC drawn therewhich showed a leukocytosis of 14.3. Patient also had a urinalysis there which was normal. The patient was then referred to the emergency department for possible appendicitis. [facility] Medical History Vaginal delivery Acute otitis media, left Acute frontal sinusitis, unspecified Non-smoker Pneumonia Home Medications ?Medication ?Instructions ?Recorded ?Last Taken ?Type lcjrpnhm-cyz-Ho-FA 1 mg 1 tab PO DAILY supple ment 06/16/22 06/10/24 09:00 History tablet 1 TAB amoxicillin 875 mg-potassium 875 mg PO Q12H #20 TABLET S 06/14/24 Unknown Rx clavulanate 125 mg tablet Allergy/AdvReac Type Severity Reaction Status Date / Time No Known Allergies Allergy Verified 06/14/24 18:39 Family History Brother Heart disease Marfan syndrome Aunt Pancreatic cancer Surgical History History of gynecologic surgery Social History adopted: No household members: spouse and children number of children: 1 current occupation: [employer] current occupational exposures/hazards: No pets and animals: Yes history of recent travel: No sexually active: Yes Smoking Status: Never smoker alcohol intake: current alcohol intake frequency: holidays/special occasions only details: Not while substance use type: does not use well-balanced diet: daily or most days caffeine: Yes Type: coffee eating out: rarely or never during the past year weight has: remained stable what type of physical activity do you participate in: weight training frequency: 3-4 times per week duration: 30-45 minutes/day roderick/orthodox: Orthodox seatbelt use: always do you feel safe at home: Yes additional social history: : Adrien HE ROS ED Constitutional Constitutional ED: Denies chills or fever(s) Eyes Eyes: Denies blurry vision or change in vision ENT ENT ED: Denies rhinorrhea or sore throat Cardiovascular Cardiovascular: Denies chest pain or palpitations Respiratory/Chest Respiratory/Chest: Denies cough or dyspnea Gastrointestinal Gastrointestinal: Reports abdominal pain and nausea; Denies vomiting Genitourinary Genitourinary ED: Denies dysuria or hematuria Musculoskeletal Musculoskeletal: Denies back pain or neck pain Integumentary Denies abscess or rash Neurologic Neurologic: Denies headache(s) or weakness Allergic/Immunologic Allergic/Immunologic ED: Denies mouth swelling or urticaria EXAM Physical Exam Const Vital Signs: 06/14/24 18:35 06/14/24 20:34 06/14/24 22:00 Temperature 97.7 F L Temperature Source Temporal Pulse Rate 104 H 105 H 100 Respiratory Rate 16 18 18 Blood Pressure 115/66 107/69 116/68 Blood Pressure Mean 82 81 84 Pulse Ox 100 97 97 Oxygen Delivery Method Room Air Room Air Room Air Positive well nourished and well developed General Appearance ED: well developed and NAD HEENT Reports moist mucous membranes Neck supple and no JVD Resp normal respiratory effort and clear to auscultation bilaterally Cardio regular rate and regular rhythm GI non-distended Auscultation: normoactive bowel sounds Palpation: soft Neuro CN's II-XII intact bilaterally, moves all extremities and no sensory deficits noted Sensorium / Orientation: alert Motor Exam: strength 5/5 throughout Psych mental status grossly normal MDM MDM MDM Narrative Medical decision making narrative: Differential diagnosis is appendicitis, round ligament pain, ovarian cyst, colitis, ureteral calculus, and pyelonephritis. Comprehensive metabolic profilewill be obtained to assess for hepatic function, renal function, and electrolyteabnormality. CT scan of the abdomen and pelvis will be obtained to assess for appendicitis, colitis, and pyelonephritis. History & Record Review Additional record(s) reviewed:: Prior outpatient record and Prior labs Lab Data Attestation: I reviewed the patient's lab results. Lab results narrative: Comprehensive metabolic profile was reviewed and was essentially within normal limits. Labs: Laboratory Results - last 24 hr 06/14/24 19:15 Sodium 138 Potassium 3.6 Chloride 105 Carbon Dioxide 20.5 L Anion Gap 13 BUN 5 Creatinine 0.45 L Estim Creat Clear Calc 204.41 Est GFR (MDRD) Non-Af 136 BUN/Creatinine Ratio 11.4 Glucose 84 Calcium 8.7 Total Bilirubin 0.31 AST 16 ALT 11 Alkaline Phosphatase 76 Total Protein 6.6 Albumin 3.6 Globulin 2.9 Albumin/Globulin Ratio 1.2 Radiography Diagnostic Testing: Clinical Impression(s) from Imaging Studies Abdomen/Pelvis CT 06/14/24 18:59 IMPRESSION: The appendix is not clearly visualized. No abnormal fluid collection to suggestacute appendicitis. Focal narrowing of the mid ascending colon, this may be secondary to peristalsisversus focal colitis. Evidence of an intrauterine fetus in the vertex position. Placenta is anterior. [facility] of the abdomen pelvis was obtained. The appendix is not clearly visualized. There is no abnormal fluid collection to suggest acute appendicitis. There is some focal narrowing of the mid ascending colon which may be secondary to peristalsis versus focal colitis. This was interpreted by the radiologist and was also independently reviewed by myself. Treatment and Re-Evaluation :: Patient was given IV fluids, morphine, and Zofran. Patient was given a repeat dose of morphine. Patient was advised of her findings. Case was discussed withDr. Lali Bro. She agrees with antibiotic treatment with Augmentin. Patient was given her first dose here. Patient was instructed to follow-up in 2to 3 days. Patient was instructed to return if worse in any way. Patient and spouse understood and were agreeable with the plan. All questions were answered. Discharge Plan Triage Chief Complaint: Abd Pain ED Provider: Benjamin Greenwood Dx/Rx/DC Orders Clinical Impression: Colitis, Instructions: ED Understanding Colitis Prescriptions: New amoxicillin-pot clavulanate 875-125 mg tablet 875 mg PO Q12H Qty: 20 0RF No Action 1 mg Tablet 1 tab PO DAILY Primary Care Provider: Madisyn Torres Referrals: Lali Bro MD [Med Staff - Active Staff] - 3-5 Days Madisyn Torres PA [Primary Care Provider] - 3-5 Days Print Language: Malaysian Disposition Disposition: Home, Self Care What to do if you have Problems For any increased pain, shortness of breath, bleeding, nausea or vomiting, chestpain, or any unexpected problems, contact your Primary Care Provider. Call [facility] ([phone]) or report to the closest Emergency Room. Call 911 if necessary. 06/14/242225 <Electronically signed by Benjamin Greenwood DO> Cosigner Signature (if applicable): CC: BOB Driver ~ Signed [facility] Work Phone: 1(324) 462-596603-03-2025 Evaluation note* Diagnosis Onset Date Resolution Status Admit Date Family history of Marfan syndrome acute April 27, 2024 1:39pm acute April 27 1:39pm Supervision of normal acut e April 27, 2024 1:39pm Family history of Marfan syndrome acute May 26, 2024 1:21pm acute May 26 1:21pm Supervision of normal acut e May 26, 2024 1:21pm Family history of Marfan syndrome acute June 09, 2024 10:07am acute June 09 10:07am Supervision of normal acut e June 09, 2024 10:07am Family history of Marfan syndrome acute June 14, 2024 4:30pm acute June 14 4:30pm Supervision of normal acut e June 14, 2024 4:30pm Abdominal pain affecting resolved June 14, 2024 4:30pm Low lying placenta, antepartum resol brittaney June 14, 2024 4:30pm Family history of Marfan syndrome acute June 23, 2024 1:07pm acute June 23 1:07pm Supervision of normal acut e June 23, 2024 1:07pm Abdominal pain affecting resolved June 23, 2024 1:07pm Low lying placenta, antepartum resol brittaney June 23, 2024 1:07pm Family history of Marfan syndrome acute July 07, 2024 9 :48am History of appendicitis acute M ay 2024 9:48am Open abdominal incision with drainage acute July 07, 2024 9 :48am acute July 07, 2024 9:48am Supervision of normal acut e July 07, 2024 9:48am Family history of Marfan syndrome acute July 21, 2024 1 2:53pm History of appendicitis acute M ay 2024 12:53pm Open abdominal incision with drainage acute July 21, 2024 1 2:53pm acute July 21, 2024 12:53pm Supervision of normal acut e July 21, 2024 12:53pm [facility] Work Phone: 1(667) 472-401703-03-2025 Evaluation note* Diagnosis Onset Date Resolution Status Admit Date Family history of Marfan syndrome acute April 27, 2024 1:39pm acute April 27 1:39pm Supervision of normal acut e April 27, 2024 1:39pm Family history of Marfan syndrome acute May 26, 2024 1:21pm acute May 26 1:21pm Supervision of normal acut e May 26, 2024 1:21pm Family history of Marfan syndrome acute June 09, 2024 10:07am acute June 09 10:07am Supervision of normal acut e June 09, 2024 10:07am Family history of Marfan syndrome acute June 14, 2024 4:30pm acute June 14 4:30pm Supervision of normal acut e June 14, 2024 4:30pm Abdominal pain affecting resolved June 14, 2024 4:30pm Low lying placenta, antepartum resol brittaney June 14, 2024 4:30pm Family history of Marfan syndrome acute June 23, 2024 1:07pm acute June 23 1:07pm Supervision of normal acut e June 23, 2024 1:07pm Abdominal pain affecting resolved June 23, 2024 1:07pm Low lying placenta, antepartum resol brittaney June 23, 2024 1:07pm Family history of Marfan syndrome acute July 07, 2024 9 :48am History of appendicitis acute M 2024 9:48am Open abdominal incision with drainage acute July 07, 2024 9 :48am acute July 07, 2024 9:48am Supervision of normal acut e July 07, 2024 9:48am Family history of Marfan syndrome acute July 21, 2024 1 2:53pm History of appendicitis acute M ay 2024 12:53pm Open abdominal incision with drainage acute July 21, 2024 1 2:53pm acute July 21, 2024 12:53pm Supervision of normal acut e July 21, 2024 12:53pm Family history of Marfan syndrome acute July 29, 2024 1 1:01am History of appendicitis acute J une 2024 11:01am Open abdominal incision with drainage acute July 29, 2024 1 1:01am acute July 29, 2024 11:01am Supervision of normal acut e July 29, 2024 11:01am Family history of Marfan syndrome acute August 05, 2024 2:53pm History of appendicitis acute J une 2024 2:53pm Open abdominal incision with drainage acute August 05, 2024 2:53pm acute August 05 2:53pm Supervision of normal acut e August 05, 2024 2:53pm [facility] Work Phone: [phone]) [phone] Evaluation note* Diagnosis Onset Date Resolution Status Admit Date Family history of Marfan syndrome acute March 25 8:21am acute March 25, 2024 8:21am Supervision of normal acute March 25 8:21am Family history of Marfan syndrome acute April 27, 2024 1:39pm acute April 27 1:39pm Supervision of normal acute April 27, 2024 1:39pm Family history of Marfan syndrome acute May 26, 2024 1:21pm acute May 26 1:21pm Supervision of normal acute May 26, 2024 1:21pm Family history of Marfan syndrome acute June 09, 2024 10:07am acute June 09 10:07am Supervision of normal acute June 09, 2024 10:07am Abdominal pain affecting acute June 14, 2024 4:30pm Family history of Marfan syndrome acute June 14, 2024 4:30pm Low lying placenta, antepartum acute June 14, 2024 4:30pm acute June 14 4:30pm Supervision of normal acute June 14, 2024 4:30pm Abdominal pain affecting acute June 23, 2024 1:07pm Family history of Marfan syndrome acute June 23, 2024 1:07pm Low lying placenta, antepartum acute June 23, 2024 1:07pm acute June 23 1:07pm Supervision of normal acute June 23, 2024 1:07pm [facility] Work Phone: 1(579) 720-119601-29-2025 Evaluation note* Diagnosis Onset Date Resolution Status Admit Date Family history of Marfan syndrome acute March 25 8:21am acute March 25, 2024 8:21am Supervision of normal acute March 25 8:21am Family history of Marfan syndrome acute April 27, 2024 1:39pm acute April 27 1:39pm Supervision of normal acute April 27, 2024 1:39pm Family history of Marfan syndrome acute May 26, 2024 1:21pm acute May 26 1:21pm Supervision of normal acute May 26, 2024 1:21pm Family history of Marfan syndrome acute June 09, 2024 10:07am acute June 09 10:07am Supervision of normal acute June 09, 2024 10:07am Family history of Marfan syndrome acute June 14, 2024 4:30pm acute June 14 4:30pm Supervision of normal acute June 14, 2024 4:30pm Abdominal pain affecting resolved June 14, 2024 4:30pm Low lying placenta, antepartum resol brittaney June 14, 2024 4:30pm Family history of Marfan syndrome acute June 23, 2024 1:07pm acute June 23 1:07pm Supervision of normal acute June 23, 2024 1:07pm Abdominal pain affecting resolved June 23, 2024 1:07pm Low lying placenta, antepartum resol brittaney June 23, 2024 1:07pm Family history of Marfan syndrome acute July 07, 2024 9 :48am History of appendicitis acute 2024 9:48am Open abdominal incision with drainage acute July 07, 2024 9 :48am acute July 07, 2024 9:48am Supervision of normal acute July 07, 2024 9 :48am [facility] Work Phone: 1([phone]) 641-665901-29-2025 Evaluation note* Diagnosis Onset Date Resolution Status Admit Date Family history of Marfan syndrome acute March 25 8:21am acute March 25, 2024 8:21am Supervision of normal acute March 25 8:21am Family history of Marfan syndrome acute April 27, 2024 1:39pm acute April 27 1:39pm Supervision of normal acute April 27, 2024 1:39pm Family history of Marfan syndrome acute May 26, 2024 1:21pm acute May 26 1:21pm Supervision of normal acute May 26, 2024 1:21pm Family history of Marfan syndrome acute June 09, 2024 10:07am acute June 09 10:07am Supervision of normal acute June 09, 2024 10:07am Family history of Marfan syndrome acute June 14, 2024 4:30pm acute Stephani 20th, 20 25 4:30pm Supervision of normal acute June 14, 2024 4:30pm Abdominal pain affecting resolved June 14, 2024 4:30pm Low lying placenta, antepartum resol brittaney June 14, 2024 4:30pm Family history of Marfan syndrome acute June 23, 2024 1:07pm acute June 23 1:07pm Supervision of normal acute June 23, 2024 1:07pm Abdominal pain affecting resolved June 23, 2024 1:07pm Low lying placenta, antepartum resol brittaney June 23, 2024 1:07pm Family history of Marfan syndrome acute July 07, 2024 9 :48am History of appendicitis acute M ay 2024 9:48am Open abdominal incision with drainage acute July 07, 2024 9 :48am acute July 07, 2024 9:48am Supervision of normal acute July 07, 2024 9 :48am Family history of Marfan syndrome acute July 21, 2024 1 2:53pm History of appendicitis acute [facility] 2024 12:53pm Open abdominal incision with drainage acute July 21, 2024 1 2:53pm acute July 21, 2024 12:53pm Supervision of normal acute July 21, 2024 1 2:53pm [facility] Work Phone: 1(955) 371-597101-06-2025 Evaluation note* Diagnosis Onset Date Resolution Status Admit Date Family history of Marfan syndrome acute March 02 8:36am acute March 02, 2 025 8:36am Supervision of normal acute March 02 8:36am Family history of Marfan syndrome acute March 25 8:21am acute March 25, 2024 8:21am Supervision of normal acute March 25 8:21am Family history of Marfan syndrome acute April 27, 2024 1:39pm acute April 27 1:39pm Supervision of normal acute April 27, 2024 1:39pm Family history of Marfan syndrome acute May 26, 2024 1:21pm acute May 26 1:21pm Supervision of normal acute May 26, 2024 1:21pm Family history of Marfan syndrome acute June 09, 2024 10:07am acute June 09 10:07am Supervision of normal acute June 09, 2024 10:07am Abdominal pain affecting acute June 14, 2024 4:30pm Family history of Marfan syndrome acute June 14, 2024 4:30pm Low lying placenta, antepartum acute June 14, 2024 4:30pm acute June 14 4:30pm Supervision of normal acute June 14, 2024 4:30pm [facility] Work Phone: 1(270) 412-785412-10-2024 Evaluation note* Diagnosis Onset Date Resolution Status Admit Date Family history of Marfan syndrome acute February 03 10:51am acute February 04, 2024 10:51am Supervision of normal acute February 03 10:51am Family history of Marfan syndrome acute March 02 8:36am acute March 02 8:36am Supervision of normal acute March 02 8:36am Family history of Marfan syndrome acute March 25 8:21am acute March 25, 2024 8:21am Supervision of normal acute March 25 8:21am Family history of Marfan syndrome acute April 27, 2024 1:39pm acute April 27 1:39pm Supervision of normal acute April 27, 2024 1:39pm Family history of Marfan syndrome acute May 26, 2024 1:21pm acute May 26 1:21pm Supervision of normal acute May 26, 2024 1:21pm [facility] Work Phone: Evaluation noteNo assessment information available [facility] Work Phone: evaluation note* Diagnosis Acute appendicitis affecting - Primary Acute appendicitis affecting Appendix disease Other and unspecified diseases of appendix documented in this encounter [facility] Author Tova Prather [facility] Note Date/Time June 14, 2024 6:1 9pm [facility] Medical Records Department [address] [place] [address] OB Triage Progress Note 06/14/241814 MR#: [id number] Acct: [id number] Name: KALLI MORGAN Rep #:[id number] : 1995 28 From: Tova Prather CNM PCP: BOB Driver Status:REG CLI Y DOS: Location: CU599-8 Progress Notes Date of Service: 06/14/24 Progress Note: Patient presents for triage evaluation secondary to right sided abdominal pain FHT: 140 Moderate variability reactive no decelerations category I tracing [place]: irregular and mild Contractions Assessment and plan: urine and cbc unremarkable, but WBCs are slightly elevated from 3 weeks ago, Reactive NST, reassuring status patient to ER for evalutaiton. Dr Bro agrees with plan of care. See problem list details for additional plan information. Laboratory Studies: Laboratory Tests 06/14/24 06/14/24 Range/Units 17:20 16:50 WBC 14.3 H (4.4-11.0) K/mm3 RBC 3.63 L (4.2-5.4) M/mm3 Hgb 10.9 L (12.0-15.0) g/dL Hct 31.7 L (37-47) % MCV 87.3 (81-99) fL MCH 30.0 (27.0-32.0) pg MCHC 34.4 (32-36) g/dL RDW Std Deviation 42.3 (35.1-43.9) fl RDW Coeff of Po 13.5 (11.6-14.6) % Plt Count 194 (150-450) K/mm3 MPV 10.7 (6.2-12.0) fl Immature Gran % (Auto) 0.600 (0.0-0.9) % Neut % (Auto) 81.9 H (47-70) % Lymph % (Auto) 13.2 L (19-41) % Cocke % (Auto) 3.4 (0-10) % Eos % (Auto) 0.7 (0-5) % Baso % (Auto) 0.2 (0-1) % Absolute Neuts (auto) 11.7 H (2.0-7.7) X10^3/uL Absolute Lymphs (auto) 1.89 (0.83-4.51) X10^3/uL Nucleated RBC % 0 (0-5) % Urine Color Yellow (Yellow) Urine Clarity Clear (Clear) Urine pH 7.0 (5.0 - 8.0) Ur Specific [place] 1.005 (1.002-1.030) Urine Protein Negative (Negative) mg/dl Urine Glucose (UA) Normal (Normal) mg/dl Urine Ketones 50 H (Negative) mg/dl Urine Occult Blood Negative (Negative) /ul Urine Nitrite Negative (Negative) Urine Bilirubin Negative (Negative) mg/dL Urine Urobilinogen Normal (Normal) mg/dl Ur Leukocyte Esterase Negative (Negative) /ul Charges/Coding Multi Select Codes Urinary/Genital Urinary/Genital CPT Codes: 98733-63 non-stress test Interp Assessment & Plan (1) Abdominal pain affecting : COMMENT: reactive NST. To ER for further evaluation. (2) Low lying placenta, antepartum: COMMENT: repeat US needed. did not get at 28 weeks (3) Family history of Marfan syndrome: COMMENT: Pt's brother...Pt has been tested and does NOT have (4) Supervision of normal : QUALIFIERS: Normal : other normal Trimester: third trimester Qualified Code(s): Z34.83 - Encounter for supervision of other normal , third trimester COMMENT: PRR, , MAURICIO 08/12/24, PC: Sarmad, : Adrien (5) : QUALIFIERS: Weeks of gestation: 30 weeks Qualified Code(s): Z3A.30 - 30 weeks gestation of COMMENT: Discussed genetic/carrier testing AFP - declines, nl anatomy 06/14/249 <Electronically signed by Tova bhardwaj CNM> Date _ Tova Prather CNM Cosigner Signature (if applicable): Date CC: ESTRADA Prather; BOB Driver ~ Signed [facility] Work Phone: Progress note Author Lali Bro [facility] Note Date/Time July 07, 2024 10:13 am [facility] [address] [place] [address], [address] [place] [address] OFFICE VISIT Date of Service: 07/07/24 MR#: [id number] Acct: [id number] Name: KALLI MORGAN Rep #: [id number] : 1995 Provider: Dr. 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 Lali Bro MD) Vaginal delivery Acute otitis media, left Acute frontal sinusitis, unspecified Non-smoker Pneumonia Surgical History (Updated 07/07/24 @ 09:57 by Emely Bob) S/P appendectomy History of gynecologic surgery Family History Brother Heart disease Marfan syndrome Aunt Pancreatic cancer Social History adopted: No household members: spouse and children number of children: 1 current occupation: [employer] current occupational exposures/hazards: No pets and animals: Yes history of recent travel: No sexually active: Yes Smoking Status: Never smoker alcohol intake: current alcohol intake frequency: holidays/special occasions only details: Not while substance use type: does not use well-balanced diet: daily or most days caffeine: Yes Type: coffee eating out: rarely or never during the past year weight has: remained stable what type of physical activity do you participate in: weight training frequency: 3-4 times per week duration: 30-45 minutes/day roderick/orthodox: Orthodox seatbelt use: always do you feel safe at home: Yes additional social history: : Adrien Peters History 2 Elective abortions Hx Para 1 Spontaneous abortions Hx # Term Pregnancies 1 Ectopic pregnancies Hx # Pregnancies Multiple births # of living children 1 Past Pregnancies Del. Date Name GA/Weeks Outcome Route Bth Weight Gen Labor Lgth Anesthesia Del Locatn Provider FOB 06/18/23 Bañuelos 40 live - full term 9lbs 2oz Male ep idural [facility] Dr Melissa Morgan Adrien Delivery Date: 06/18/23 Last Updated by: Susan Somers RN no complications HPI 34 wk ob Details: KALLI MORGAN is a 28 year old who presents for routine OB visit. OB Visit MAURICIO Calculator Estimated Delivery Date Method Current WG Current Estimate 08/12/24 LMP (Certain) 34w 6d Other Estimates 08/11/24 Ultrasound #1 35w 0d Expected Delivery Route/Plan Labor Preferences- CB/BF classes: no labor support person: Adrien labor intervention preferences: [] pain management options preferred: epidural cut cord/dad catch: cord : yes PP control planned: discussed discussed possible routes of delivery and associated risks: [] special requests: [] Specific Issue/Plans Covid status: [] Flu vaccine: [] Tdap vaccine: declines Rhogam: na LARC form signed: yes Problem list reviewed and updated with the most current plan of care details and appropriate orders placed. Relevant counseling for the gestational age provided. Continue routine care and follow up unless otherwise noted in visit notes/problem list details Initial Weight: Not Recorded Date -?-?-?-?-?-?-?-?-?-?-?-?- EGA Weight BP Urine Prot -?-?-?-?-?-?-?-?-?-?-?-?- Glucose FHR FuHt Pres Dilation -?-?-?-?-?-?-?-?-?-?-?-?- Effaced St Visit Note 01/06/24 -?-?-?-?-?--?-?-?-?-?-?-?- 8w 5d 157 lb 129/82 -?-?-?-?-?-?-?-?-?-?-?-?- 187 -?-?-?-?-?-?-?-?-?-?-?-?- JV- CRL consiste nt with LMP. patient very nauseated today so declines pap today. will do next visit. declines medication. taking unisom + B6. declines nipt. 02/04/24 -?-?-?-?-?-?-?-?-?-?-?-?- 12w 6d 159 lb 2 oz 122/81 Nega tive -?-?-?-?-?-?-?-?-?-?-?-?- Negative 150 -?-?-?-?-?-?-?-?-?-?-?-?- - no efrain marks, educated about varicella non immune, patient was last pre gnancy and declined immunization after. 03/02/24 -?-?-?-?-?-?-?-?-?-?-?-?- 16w 5d 160 lb 4 oz 122/80 Nega tive -?-?-?-?-?-?-?-?-?-?-?-?- Negative 164 -?-?-?-?-?-?-?-?-?-?-?-?- -No VB, LOF. N o flutters yet. Will get labs today. US scheduled 03/25/24 -?-?-?-?-?-?-?-?-?-?-?-?- 20w 0d 162 lb 112/70 Negative -?-?-?-?-?-?-?-?-?-?-?-?- Negative 148 -?-?-?-?-?-?-?-?-?-?-?-?- MH-NO VB, LOF. G ood FM. anatomy US yesterday/results pending 04/27/24 -?-?-?-?-?-?-?-?-?-?-?-?- 24w 5d 170 lb 127/82 Negative -?-?-?-?-?-?-?-?-?-?-?-?- Negative 155 25 -?-?-?-?-?-?-?-?-?-?-?-?- KW- no vb/lof/ct x. good fm. 28 week labs discussed 05/26/24 -?-?-?-?-?-?-?-?-?-?-?-?- 28w 6d 173 lb 2 oz 118/72 Nega tive -?-?-?-?-?-?-?-?-?-?-?-?- Negative 146 29 -?-?-?-?-?-?-?-?-?-?-?-?- MH-No VB, LOF. G ppd FM. 28 wk labs pending. Larc. Declines tdap 06/09/24 -?-?-?-?-?-?-?-?-?-?-?-?- 30w 6d 174 lb 121/77 Negative -?-?-?-?-?-?-?-?-?-?-?-?- Negative 140 30 -?-?-?-?-?-?-?-?-?-?-?-?- JV- no lof, vagi nal bleeding, or dec fm. normal glucola. hg 11.1. 06/23/24 -?-?-?-?-?-?-?-?-?-?-?-?- 32w 6d 167 lb 4 oz 119/80 -?-?-?-?-?-?-?-?-?-?-?-?- 145 31 -?-?-?-?-?-?-?-?-?-?-?-?- kw- no vb/lof/ct x. good fm. had appendicitis and had surgery last week. will get US scheduled for follow up placenta. 07/07/24 -?-?-?-?-?-?-?-?-?-?-?-?- 34w 6d 172 lb 8 oz 116/76 -?-?-?-?-?-?-?-?-?-?-?-?- 140 34 -?-?-?-?-?-?-?-?-?-?-?-?- SM- open incisio n in upper abdomen with white drainage after dermbond removed, no erythema or significant tenderness- reviewed precautions to watch and keflex ordered jjust in case ACOG First Trimester First Trimester: Discussed Second Trimester Second Trimester: Signs and Symptoms of Labor, Reproductive Life Planning & Contreception and Care Planning; Discussed Tobacco Cessation, Discussed Depression/Anxiety and Discussed Intimate Partner Violence Third Trimester Third Trimester: Pain Management Plans, Labor support person(s), Immediate Larc, Circumcision preference, Signs and Symptoms of Preeclampsia, Feeding No and Family Medical Leave or Disability Forms Coding Level of Care Code OB Routine Diagnoses Family history of Marfan syndrome Z82.79 Encounter for supervision of other normal in third trimester Z34.83 Normal : other normal Trimester: third trimester 34 weeks gestation of Z3A.34 Weeks of gestation: 34 weeks History of appendicitis Z87.19 Open abdominal incision with drainage T81.321A Assessment and Plan Assessment and Plan (1) Family history of Marfan syndrome: Status: Acute Comment: Pt's brother...Pt has been tested and does NOT have (2) Supervision of normal : Status: Acute Qualifiers: Normal : other normal Trimester: third trimester Qualified Code(s): Z34.83 - Encounter for supervision of other normal , third trimester Comment: PRR, , MAURICIO 08/12/24, PC: Sarmad, : Adrien (3) : Status: Acute Qualifiers: Weeks of gestation: 34 weeks Qualified Code(s): Z3A.34 - 34 weeks gestation of Comment: Discussed genetic/carrier testing AFP - declines, nl anatomy (4) History of appendicitis: Status: Acute Comment: 31 weeks (5) Open abdominal incision with drainage: Status: Acute Orders: Orders POC Urinalysis 2 Dip (Clinic) Today Medications: New cephalexin space evenly during waking hours 500 mg PO TID 7 days 21 caps 0RF 07/07/24 1013 <Electronically signed by Lali moctezuma MD> Date _ Lali Bro MD Cosigner Signature: Date (if applicable) CC: ~ [facility] Work Phone: Progress note Author Tova Prather [facility] Services Note Date/Time July 21, 2024 1:14p [facility] [address], [address] [place] [address] OFFICE VISIT Date of Service: 07/21/24 MR#: [id number] Acct: [id number] Name: KALLI MORGAN Rep #: [id number] : 1995 Provider: ESTRADA Prather Age/Sex: 28/F Location: 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 Is patient in pain?: No Allergies No Known Allergies Allergy (Verified 07/21/24 12:55) Medications ?Medication ?Instructions ?Recorded ?Confirmed ?Type uanbfpsa-ijq-Cj-FA 1 mg 1 tab PO DAILY supple ment 06/16/22 07/21/24 History tablet Last Menstrual Period: 11/06/23 : No PFSH PFSH Medical History Vaginal delivery Acute otitis media, left Acute frontal sinusitis, unspecified Non-smoker Pneumonia Surgical History S/P appendectomy History of gynecologic surgery Family History Brother Heart disease Marfan syndrome Aunt Pancreatic cancer Social History adopted: No household members: spouse and children number of children: 1 current occupation: [employer] current occupational exposures/hazards: No pets and animals: Yes history of recent travel: No sexually active: Yes Smoking Status: Never smoker alcohol intake: current alcohol intake frequency: holidays/special occasions only details: Not while substance use type: does not use well-balanced diet: daily or most days caffeine: Yes Type: coffee eating out: rarely or never during the past year weight has: remained stable what type of physical activity do you participate in: weight training frequency: 3-4 times per week duration: 30-45 minutes/day roderick/orthodox: Orthodox seatbelt use: always do you feel safe at home: Yes additional social history: : Adrien Peters History 2 Elective abortions Hx Para 1 Spontaneous abortions Hx # Term Pregnancies 1 Ectopic pregnancies Hx # Pregnancies Multiple births # of living children 1 Past Pregnancies Del. Date Name GA/Weeks Outcome Route Bth Weight Gen Labor Lgth Anesthesia Del Locatn Provider FOB 06/18/23 Bañuelos 40 live - full term 9lbs 2oz Male ep idural [facility] Dr Melissa Jurado Delivery Date: 06/18/23 Last Updated by: Susan Somers RN no complications HPI 36 wk ob Details: KALLI MORGAN is a 28 year old who presents for routine OB visit. OB Visit MAURICIO Calculator Estimated Delivery Date Method Current WG Current Estimate 08/12/24 LMP (Certain) 36w 6d Other Estimates 08/11/24 Ultrasound #1 37w 0d Expected Delivery Route/Plan Labor Preferences- CB/BF classes: no labor support person: Adrien labor intervention preferences: [] pain management options preferred: epidural cut cord/dad catch: cord : yes PP control planned: discussed discussed possible routes of delivery and associated risks: [] special requests: [] Specific Issue/Plans Covid status: [] Flu vaccine: [] Tdap vaccine: declines Rhogam: na LARC form signed: yes Problem list reviewed and updated with the most current plan of care details and appropriate orders placed. Relevant counseling for the gestational age provided. Continue routine care and follow up unless otherwise noted in visit notes/problem list details Initial Weight: Not Recorded Date -?-?-?-?-?-?-?-?-?-?-?-?- EGA Weight BP Urine Prot -?-?-?-?-?-?-?-?-?-?-?-?- Glucose FHR FuHt Pres Dilation -?-?-?-?-?-?-?-?-?-?-?-?- Effaced St Visit Note 01/06/24 -?-?-?-?-?-?-?-?-?-?-?-?- 8w 5d 157 lb 129/82 -?-?-?-?-?-?-?-?-?-?-?-?- 187 -?-?-?-?-?-?-?-?-?-?-?-?- JV- CRL consiste nt with LMP. patient very nauseated today so declines pap today. will do next visit. declines medication. taking unisom + B6. declines nipt. 02/04/24 -?-?-?-?-?-?-?-?-?-?-?-?- 12w 6d 159 lb 2 oz 122/81 Nega tive -?-?-?-?-?-?-?-?-?-?-?-?- Negative 150 -?-?-?-?-?-?-?-?-?-?-?-?- SM- no vb andrew marks, educated about varicella non immune, patient was last and declined immunization after. 03/02/24 -?-?-?-?-?-?-?-?-?-?-?-?- 16w 5d 160 lb 4 oz 122/80 Nega tive -?-?-?-?-?-?-?-?-?-?-?-?- Negative 164 -?-?-?-?-?-?-?-?-?-?-?-?- -No VB, LOF. N o flutters yet. Will get labs today. US scheduled 03/25/24 -?-?-?-?-?-?-?-?-?-?-?-?- 20w 0d 162 lb 112/70 Negative -?-?-?-?-?-?-?-?-?-?-?-?- Negative 148 -?-?-?-?-?-?-?-?-?-?-?-?- MH-NO VB, LOF. G ood FM. anatomy US yesterday/results pending 04/27/24 -?-?-?-?-?--?-?-?-?-?-?-?- 24w 5d 170 lb 127/82 Negative -?-?-?-?-?-?-?-?-?-?-?-?- Negative 155 25 -?-?-?-?-?-?-?-?-?-?-?-?- KW- no vb/lof/ct x. good fm. 28 week labs discussed 05/26/24 -?-?-?-?-?-?-?-?-?-?-?-?- 28w 6d 173 lb 2 oz 118/72 Nega tive -?-?-?-?-?-?-?-?-?-?-?-?- Negative 146 29 -?-?-?-?-?-?-?-?-?-?-?-?- -No VB, LOF. G ppd FM. 28 wk labs pending. Larc. Declines tdap 06/09/24 -?-?-?-?-?-?-?-?-?-?-?-?- 30w 6d 174 lb 121/77 Negative -?-?-?-?-?-?-?-?-?-?-?-?- Negative 140 30 -?-?-?-?-?-?-?-?-?-?-?-?- JV- no lof, vagi nal bleeding, or dec fm. normal glucola. hg 11.1. 06/23/24 -?-?-?-?-?-?-?-?-?-?-?-?- 32w 6d 167 lb 4 oz 119/80 -?-?-?-?-?-?-?-?-?-?-?-?- 145 31 -?-?-?-?-?-?-?-?-?-?-?-?- kw- no vb/lof/ct x. good fm. had appendicitis and had surgery last week. will get US scheduled for follow up placenta. 07/07/24 -?-?-?-?-?-?-?-?-?-?-?-?- 34w 6d 172 lb 8 oz 116/76 Nega tive -?-?-?-?-?-?-?-?-?-?-?-?- Negative 140 34 -?-?-?-?-?-?-?-?-?-?-?-?- SM- open incisio n in upper abdomen with white drainage after dermbond removed, no erythema or significant tenderness- reviewed precautions to watch and keflex ordered jjust in case 07/21/24 -?-?-?-?-?-?-?-?-?-?-?-?- 36w 6d 178 lb 6 oz 120/79 Nega tive -?-?-?--?-?-?-?-?-?-?-?-?- Negative 125 36 0.5 -?-?-?-?-?-?-?-?-?-?-?-?- -2 KW- no v b/lof/ctx. good fm. GBS today. no concerns. upper incision healing. ACOG First Trimester First Trimester: Discussed Second Trimester Second Trimester: Signs and Symptoms of Labor, Reproductive Life Planning & Contreception and Care Planning; Discussed Tobacco Cessation, Discussed Depression/Anxiety and Discussed Intimate Partner Violence Third Trimester Third Trimester: Pain Management Plans, Labor support person(s), Immediate Larc, Circumcision preference, Signs and Symptoms of Preeclampsia, Infant Feeding No and Family Medical Leave or Disability Forms ROS Const Reports system reviewed and no additional complaints, except as documented Eyes Reports system reviewed and no additional complaints, except as documented ENT Reports system reviewed and no additional complaints, except as documented Card Reports system reviewed and no additional complaints, except as documented Resp Reports system reviewed and no additional complaints, except as documented GI Reports system reviewed and no additional complaints, except as documented, Denies nausea and Denies vomiting Reports system reviewed and no additional complaints, except as documented Musc Reports system reviewed and no additional complaints, except as documented Skin/Breast Reports system reviewed and no additional complaints, except as documented Neuro Yes system reviewed and no additional complaints, except as documented Psych Reports system reviewed and no additional complaints, except as documented Endo Reports system reviewed and no additional complaints, except as documented Favio/Lymph Reports system reviewed and no additional complaints, except as documented Aller/Immun Reports system reviewed and no additional complaints, except as documented Exam Const General: cooperative, healthy appearing and no acute distress Orientation: alert, awake and oriented x3 Neck Neck: normal visual inspection and full ROM Resp Effort & Inspection: normal respiratory effort, able to speak in complete sentences and symmetric chest movement GI Inspection: normal to inspection Palpation: soft and other Other: gravid Skin General: no rashes or lesions noted Neuro General: patient alert, patient awake and patient oriented x3 Cognition: normal cognition Speech: speech normal Gait: normal gait Motor: muscle tone normal throughout Extrem General: normal to inspection and full ROM Psych Appearance: grossly normal Mental Status: mental status grossly normal Mood: congruent mood Affect: normal affect Speech and Movement: speech and movement normal Attitude: cooperative Thought Process: normal Thought Content: normal Judgment: judgment good Results POC Urinalysis 2 Dip (Clinic) Office Urine Glucose Negative Last Edit by Yolande Solares on 07/21/24 13:03 Office Urine Protein Negative Last Edit by Yolande Solares on 07/21/24 13:03 Coding Level of Care Code OB Routine Diagnoses Open abdominal incision with drainage T81.321A History of appendicitis Z87.19 Family history of Marfan syndrome Z82.79 Encounter for supervision of other normal in third trimester Z34.83 Normal : other normal Trimester: third trimester 36 weeks gestation of Z3A.36 Weeks of gestation: 36 weeks Assessment and Plan Assessment and Plan (1) Open abdominal incision with drainage: Status: Acute (2) History of appendicitis: Status: Acute Comment: 31 weeks (3) Family history of Marfan syndrome: Status: Acute Comment: Pt's brother...Pt has been tested and does NOT have (4) Supervision of normal : Status: Acute Qualifiers: Normal : other normal Trimester: third trimester Qualified Code(s): Z34.83 - Encounter for supervision of other normal , third trimester Comment: PRR, , MAURICIO 08/12/24, PC: Sarmad, : Adrien (5) : Status: Acute Qualifiers: Weeks of gestation: 36 weeks Qualified Code(s): Z3A.36 - 36 weeks gestation of Comment: Discussed genetic/carrier testing AFP - declines, nl anatomy Orders: Orders POC Urinalysis 2 Dip (Clinic) Today Culture, Group B Streptococcus Today Z34.83 - Encounter for supervision of other normal , third trimester, Z3A.36 - 36 weeks gestation of Plan Details Additional Comments: ACOG trimester education reviewed and updated. see problem list details for updated plan management information and see below for orders placed at this visit. GA appropriate handout given. 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 Ozzie Aguirre MD [address] [facility] [address] [place] [address] Phone: tel: fax: [facility] [address] [place] [address] Phone: tel: Referral ID Status Reason Start Date Expiration Date Visits Re quested Visits Authorized [id number] 1 1 [facility] Health Summary Purpose Family History No Family History Records Found Relationship Condition Age at Onset Recorded Date/T eliane brother Cardiac disease Unknown Marfan's syndrome Unknown aunt Malignant neoplasm of pancreas Unknown Advance Directives No Advanced Directives Records Found Advance Directive Response Recorded Date/ Time Advance Directives No August 01 7:43pm Living Will No February 23, 021 10:02am Power of Reexaminer No February 23, 2021 10:02am Advance Directive Response Recorded Date/ Time Advance Directives No August 01 6:43pm Living Will No February 23, 2 021 9:02am Power of Reexaminer No February 23, 2021 9:02am Advance Directive Response Recorded Date/ Time Living Will No June 16, 2022 9:38pm Do you have a Healthcare Power of Reexaminer? No June 16, 2022 9:38pm Advance Directives No August 01 5 7:43pm Advance Directive Response Recorded Date/ Time Advance Directives No August 01 7:43pm Advance Directive Response Recorded Date/ Time Living Will No June 14, 2024 6:48pm Do you have a Healthcare Power of Reexaminer? No June 14, 2024 6:48pm Advance Directives No August 01 7:43pm Date Activated Date Inactivated Comments 06/16/2024 1:16 AM 06/17/2024 2:46 PM Advance Directive Response Recorded Date/ Time Living Will No June 14, 2024 6:48pm Do you have a Healthcare Power of Reexaminer? No June 14, 2024 6:48pm Living Will No June 15, 2024 6:39pm Do you have a Healthcare Power of Reexaminer? No June 15, 2024 6:39pm Advance Directives No August 01 7:43pm Chief Complaint and Reason for Visit Chief Complaint Admit Date 12wk OB February 04, 2024 10:51am 16 wk ob March 02, 2024 8: 36am SUPERVISON OF NORMAL PREG March 24, 2024 3:12pm 19 wk ob March 25, 2024 8 :21am 24 wk ob April 27, 2024 1:39 pm 28 WK OB/ glucose May 26, 2024 1:21 pm Reason for Visit Admit Date Family history of Marfan syndrome Decemb er 2023 10:51am February 04, 2024 10:51am Supervision of normal February 04, 2024 10:51am Family history of Marfan syndrome Januar y 2024 8:36am March 02, 2024 8: 36am Supervision of normal March 02, 2024 8:36am Family history of Marfan syndrome Januar y 2024 8:21am March 25, 2024 8 :21am Supervision of normal March 25, 2024 8:21am Family history of Marfan syndrome April 27, 2024 1:39pm April 27, 2024 1:39 pm Supervision of normal April 1:39pm Family history of Marfan syndrome May 26, 2024 1:21pm May 26, 2024 1:21 pm Supervision of normal May 1:21pm Chief Complaint Admit Date 16 wk ob March 02, 2024 8: 36am SUPERVISON OF NORMAL PREG March 24, 2024 3:12pm 19 wk ob March 25, 2024 8 :21am 24 wk ob April 27, 2024 1:39 pm 28 WK OB/ glucose May 26, 2024 1:21 pm 30 wk ob June 09, 2024 10: 07am UPPER RIGHT ABDOMINAL PAIN June 14 4:30pm UPPER RIGHT ABDOMINAL PAIN June 14 6:15pm Reason for Visit Admit Date Family history of Marfan syndrome Febuar y 2024 8:36am March 02, 2024 8: 36am Supervision of normal March 02, 2024 8:36am Family history of Marfan syndrome Febuar y 2024 8:21am March 25, 2024 8 :21am Supervision of normal March 25, 2024 8:21am Family history of Marfan syndrome April 27, 2024 1:39pm April 27, 2024 1:39 pm Supervision of normal April 1:39pm Family history of Marfan syndrome May 26, 2024 1:21pm May 26, 2024 1:21 pm Supervision of normal May 1:21pm Family history of Marfan syndrome June 09, 2024 10:07am June 09, 2024 10: 07am Supervision of normal June 092024 10:07am Abdominal pain affecting June 14, 2024 4:30pm Family history of Marfan syndrome June 14, 2024 4:30pm Low lying placenta, antepartum May 4:30pm June 14, 2024 4:3 0pm Supervision of normal June 142024 4:30pm Chief Complaint Admit Date 16 wk ob March 02, 2024 8: 36am SUPERVISON OF NORMAL PREG March 24, 2024 3:12pm 19 wk ob March 25, 2024 8 :21am 24 wk ob April 27, 2024 1:39 pm 28 WK OB/ glucose May 26, 2024 1:21 pm 30 wk ob June 09, 2024 10: 07am UPPER RIGHT ABDOMINAL PAIN June 14 025 4:30pm UPPER RIGHT ABDOMINAL PAIN June 14 025 6:15pm abdominal pain June 14, 2024 6:3 4pm Chief Complaint Admit Date SUPERVISON OF NORMAL PREG March 24, 2024 3:12pm 19 wk ob March 25, 2024 8 :21am 24 wk ob April 27, 2024 1:39 pm 28 WK OB/ glucose May 26, 2024 1:21 pm 30 wk ob June 09, 2024 10: 07am UPPER RIGHT ABDOMINAL PAIN June 14, 025 4:30pm UPPER RIGHT ABDOMINAL PAIN June 14 025 6:15pm abdominal pain June 14, 2024 6:3 4pm abd pain June 15, 2024 6:3 9pm 32 wk ob June 23, 2024 1:0 7pm LOW LYING PLACENTA, ANTEPARTUM July 01, 2024 11:40am Reason for Visit Admit Date Family history of Marfan syndrome Jayda hoffman 2024 8:21am March 25, 2024 8 :21am Supervision of normal March 25, 2024 8:21am Family history of Marfan syndrome April 27, 2024 1:39pm April 27, 2024 1:39 pm Supervision of normal April 1:39pm Family history of Marfan syndrome May 26, 2024 1:21pm May 26, 2024 1:21 pm Supervision of normal May 1:21pm Family history of Marfan syndrome June 09, 2024 10:07am June 09, 2024 10: 07am Supervision of normal June 092024 10:07am Abdominal pain affecting June 14, 2024 4:30pm Family history of Marfan syndrome June 14, 2024 4:30pm Low lying placenta, antepartum May 4:30pm June 14, 2024 4:3 0pm Supervision of normal June 142024 4:30pm Abdominal pain affecting June 23, 2024 1:07pm Family history of Marfan syndrome June 23, 2024 1:07pm Low lying placenta, antepartum May 1:07pm June 23, 2024 1:0 7pm Supervision of normal June 232024 1:07pm Chief Complaint Admit Date SUPERVISON OF NORMAL PREG March 24, 2024 3:12pm 19 wk ob March 25, 2024 8 :21am 24 wk ob April 27, 2024 1:39 pm 28 WK OB/ glucose May 26, 2024 1:21 pm 30 wk ob June 09, 2024 10: 07am UPPER RIGHT ABDOMINAL PAIN June 14, 025 4:30pm UPPER RIGHT ABDOMINAL PAIN June 14 025 6:15pm abdominal pain June 14, 2024 6:3 4pm abd pain June 15, 2024 6:3 9pm 32 wk ob June 23, 2024 1:0 7pm LOW LYING PLACENTA, ANTEPARTUM July 01, 2024 11:40am 34 wk ob July 07, 2024 9:48a m Reason for Visit Admit Date Family history of Marfan syndrome Germankarla hoffman 2024 8:21am March 25, 2024 8 :21am Supervision of normal March 25, 2024 8:21am Family history of Marfan syndrome April 27, 2024 1:39pm April 27, 2024 1:39 pm Supervision of normal April 1:39pm Family history of Marfan syndrome May 26, 2024 1:21pm May 26, 2024 1:21 pm Supervision of normal May 1:21pm Family history of Marfan syndrome June 09, 2024 10:07am June 09, 2024 10: 07am Supervision of normal June 092024 10:07am Family history of Marfan syndrome June 14, 2024 4:30pm June 14, 2024 4:3 0pm Supervision of normal June 142024 4:30pm Abdominal pain affecting June 14, 2024 4:30pm Low lying placenta, antepartum May 4:30pm Family history of Marfan syndrome June 23, 2024 1:07pm June 23, 2024 1:0 7pm Supervision of normal June 232024 1:07pm Abdominal pain affecting June 23, 2024 1:07pm Low lying placenta, antepartum May 1:07pm Family history of Marfan syndrome July 072024 9:48am History of appendicitis July 07, 2024 9 :48am Open abdominal incision with drainage Dao hoffman 2024 9:48am July 07, 2024 9:48a m Supervision of normal June 9:48am Chief Complaint Admit Date SUPERVISON OF NORMAL PREG March 24, 2024 3:12pm 19 wk ob March 25, 2024 8 :21am 24 wk ob April 27, 2024 1:39 pm 28 WK OB/ glucose May 26, 2024 1:21 pm 30 wk ob June 09, 2024 10: 07am UPPER RIGHT ABDOMINAL PAIN June 14, 2 025 4:30pm UPPER RIGHT ABDOMINAL PAIN June 14, 2 025 6:15pm abdominal pain June 14, 2024 6:3 4pm abd pain June 15, 2024 6:3 9pm 32 wk ob June 23, 2024 1:0 7pm LOW LYING PLACENTA, ANTEPARTUM July 01, 2024 11:40am 34 wk ob July 07, 2024 9:48a m 36 wk ob July 21, 2024 12:53 pm Reason for Visit Admit Date Family history of Marfan syndrome Jayda hoffman 2024 8:21am March 25, 2024 8 :21am Supervision of normal March 25, 2024 8:21am Family history of Marfan syndrome April 27, 2024 1:39pm April 27, 2024 1:39 pm Supervision of normal April 1:39pm Family history of Marfan syndrome May 26, 2024 1:21pm May 26, 2024 1:21 pm Supervision of normal May 1:21pm Family history of Marfan syndrome June 09, 2024 10:07am June 09, 2024 10: 07am Supervision of normal June 092024 10:07am Family history of Marfan syndrome June 14, 2024 4:30pm June 14, 2024 4:3 0pm Supervision of normal June 142024 4:30pm Abdominal pain affecting June 14, 2024 4:30pm Low lying placenta, antepartum May 4:30pm Family history of Marfan syndrome June 23, 2024 1:07pm June 23, 2024 1:0 7pm Supervision of normal June 232024 1:07pm Abdominal pain affecting June 23, 2024 1:07pm Low lying placenta, antepartum May 1:07pm Family history of Marfan syndrome July 072024 9:48am History of appendicitis July 07, 2024 9 :48am Open abdominal incision with drainage Dao y 2024 9:48am July 07, 2024 9:48a m Supervision of normal June 9:48am Family history of Marfan syndrome July 212024 12:53pm History of appendicitis July 21, 2024 1 2:53pm Open abdominal incision with drainage Dao hoffman 2024 12:53pm July 21, 2024 12:53 pm Supervision of normal June 12:53pm Chief Complaint Admit Date 24 wk ob April 27, 2024 1:39 pm 28 WK OB/ glucose May 26, 2024 1:21 pm 30 wk ob June 09, 2024 10: 07am UPPER RIGHT ABDOMINAL PAIN June 14, 2 025 4:30pm UPPER RIGHT ABDOMINAL PAIN June 14, 2 025 6:15pm abdominal pain June 14, 2024 6:3 4pm abd pain June 15, 2024 6:3 9pm 32 wk ob June 23, 2024 1:0 7pm LOW LYING PLACENTA, ANTEPARTUM July 01, 2024 11:40am 34 wk ob July 07, 2024 9:48a m 36 wk ob July 21, 2024 12:53 pm Reason for Visit Admit Date Family history of Marfan syndrome April 27, 2024 1:39pm April 27, 2024 1:39 pm Supervision of normal April 1:39pm Family history of Marfan syndrome May 26, 2024 1:21pm May 26, 2024 1:21 pm Supervision of normal May 1:21pm Family history of Marfan syndrome June 09, 2024 10:07am June 09, 2024 10: 07am Supervision of normal June 092024 10:07am Family history of Marfan syndrome June 14, 2024 4:30pm June 14, 2024 4:3 0pm Supervision of normal June 142024 4:30pm Abdominal pain affecting June 14, 2024 4:30pm Low lying placenta, antepartum May 4:30pm Family history of Marfan syndrome June 23, 2024 1:07pm June 23, 2024 1:0 7pm Supervision of normal June 232024 1:07pm Abdominal pain affecting June 23, 2024 1:07pm Low lying placenta, antepartum May 1:07pm Family history of Marfan syndrome July 072024 9:48am History of appendicitis July 07, 2024 9 :48am Open abdominal incision with drainage Dao hoffman 2024 9:48am July 07, 2024 9:48a m Supervision of normal June 9:48am Family history of Marfan syndrome July 212024 12:53pm History of appendicitis July 21, 2024 1 2:53pm Open abdominal incision with drainage Dao hoffman 2024 12:53pm July 21, 2024 12:53 pm Supervision of normal June 12:53pm Chief Complaint Admit Date 24 wk ob April 27, 2024 1:39 pm 28 WK OB/ glucose May 26, 2024 1:21 pm 30 wk ob June 09, 2024 10: 07am UPPER RIGHT ABDOMINAL PAIN June 14, 2 025 4:30pm UPPER RIGHT ABDOMINAL PAIN June 14, 2 025 6:15pm abdominal pain June 14, 2024 6:3 4pm abd pain June 15, 2024 6:3 9pm 32 wk ob June 23, 2024 1:0 7pm LOW LYING PLACENTA, ANTEPARTUM July 01, 2024 11:40am 34 wk ob July 07, 2024 9:48a m 36 wk ob July 21, 2024 12:53 pm 37wk ob July 29, 2024 11:01 am 38wk ob August 05, 2024 2:53 pm Reason for Visit Admit Date Family history of Marfan syndrome April 27, 2024 1:39pm April 27, 2024 1:39 pm Supervision of normal April 1:39pm Family history of Marfan syndrome May 26, 2024 1:21pm May 26, 2024 1:21 pm Supervision of normal May 1:21pm Family history of Marfan syndrome June 09, 2024 10:07am June 09, 2024 10: 07am Supervision of normal June 092024 10:07am Family history of Marfan syndrome June 14, 2024 4:30pm June 14, 2024 4:3 0pm Supervision of normal June 142024 4:30pm Abdominal pain affecting June 14, 2024 4:30pm Low lying placenta, antepartum May 4:30pm Family history of Marfan syndrome June 23, 2024 1:07pm June 23, 2024 1:0 7pm Supervision of normal June 232024 1:07pm Abdominal pain affecting June 23, 2024 1:07pm Low lying placenta, antepartum May 1:07pm Family history of Marfan syndrome July 072024 9:48am History of appendicitis July 07, 2024 9 :48am Open abdominal incision with drainage Dao y 2024 9:48am July 07, 2024 9:48a m Supervision of normal June 9:48am Family history of Marfan syndrome July 212024 12:53pm History of appendicitis July 21, 2024 1 2:53pm Open abdominal incision with drainage Dao y 2024 12:53pm July 21, 2024 12:53 pm Supervision of normal June 12:53pm Family history of Marfan syndrome July 292024 11:01am History of appendicitis July 29, 2024 1 1:01am Open abdominal incision with drainage Sulma ne 2024 11:01am July 29, 2024 11:01 am Supervision of normal July 11:01am Family history of Marfan syndrome July 262024 2:53pm History of appendicitis August 05, 2024 2:53pm Open abdominal incision with drainage Sulma ne 2024 2:53pm August 05, 2024 2:53 pm Supervision of normal July 2:53pm Additional Source Comments INFORMATION SOURCE (unrecogn ized section and content) DATE CREATED AUTHOR 12/12/2019 Kamlesh Giordanosindhu [facility] DATE CREATED AUTHOR AUTHOR'S ORGANIZ ATION 06/21/2024 [facility] DATE CREATED AUTHOR AUTHOR'S ORGANIZ ATION 08/08/2024 [facility] Goals (unrecognized section and content) Goals may be documented in a n alternate sectionGoals may be documented in an alternate sectionGoals may be documented in an alternate sectionGoals may be documented in an alternate sectionGoals may be documented in an alternate sectionGoals may be documented in an alternate sectionGoals may be documented in an alternate sectionGoals may be documented in an alternate sectionGoals may be documented in an alternate sectionGoals may be documented in an alternate sectionGoals may be documented in an alternate sectionGoals may be documented in an alternate section Care Teams (unrecognized sec tion and content) Team Status: Active Member Role Status Dates Dr. Fam Solares , DO Family Provider Active Dr. Fam Solares , DO Primary Care Provider Active Team Status: Inactive Member Role Status Dates Dr. Fam Solares , DO Primary Care Provider Active Dr. Eladio Morgan MD Attending Provider Active Team Status: Active Member Role Status Dates Madisyn ROJAS PA Primary Care Provider Active Team Status: Inactive Member Role Status Dates Madisyn ROJAS PA Primary Care Provider Active Start: February 04, 2024 End: February 04, 2024 Madisyn Torres PA, PA Referring Provider Active Start: February 04, 2024 End: February 04, 2024 Dr. Lali Bro MD Attending Provider Active Start: February 04, 2024 End: February 04, 2024 Team Status: Inactive Member Role Status Dates Madisyn ROJAS PA Primary Care Provider Active Start: March 02, 2024 End: March 02, 2024 Madisyn ROJAS PA Referring Provider Active Start: March 02, 2024 End: March 02, 2024 Emely Boone NP 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-C Attending Provider Active Start: March 02, 2024 End: March 02, 2024 Team Status: Inactive Member Role Status Dates Madisyn ROJAS PA Primary Care Provider Active Start: March 02, 2024 End: March 02, 2024 Emely Boone NP, NP-C Attending Provider Active Start: March 02, 2024 End: March 02, 2024 Emely Boone 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, 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-C Referring Provider Active Start: March 02, 2024 End: March 02, 2024 Team Status: Inactive Member Role Status Dates Madisyn Torres PA, PA Primary Care Provider Active Start: March 24, 2024 End: March 24, 2024 Dr. Lali Bro MD Attending Provider Active Start: March 24, 2024 End: March 24, 2024 Dr. Lali Bro MD Referring Provider Active Start: March 24, 2024 End: March 24, 2024 Team Status: Inactive Member Role Status Dates Madisyn Torres PA, PA Primary Care Provider Active Start: March 25, 2024 End: March 25, 2024 Madisyn Torres PA, PA Referring Provider Active Start: March 25, 2024 End: March 25, 2024 Emely Boone 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, 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-C Attending Provider Active Start: March 25, 2024 End: March 25, 2024 Team Status: Inactive Member Role Status Dates Madisyn Torres PA, PA Primary Care Provider Active Start: April 27, 2024 End: April 27, 2024 Madisyn Torres PA, PA Referring Provider Active Start: April 27, 2024 End: April 27, 2024 Tova Prather CNM Attending Provider Active S tart: April 27, 2024 End: April 27, 2024 Team Status: Inactive Member Role Status Dates Madisyn Torres PA, PA Primary Care Provider Active Start: May 26, 2024 End: May 26, 2024 Madisyn Torres PA, PA Referring Provider Active Start: May 26, 2024 End: May 26, 2024 Emely Boone [employer]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, 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-C Attending Provider Active Start: May 26, 2024 End: May 26, 2024 Team Status: Inactive Member Role Status Dates Madisyn Torres PA, PA Primary Care Provider Active Start: May 26, 2024 End: May 26, 2024 Tova Prather CNM Attending Provider Active S tart: May 26, 2024 End: May 26, 2024 Tova Prather CNM Referring Provider Active S tart: May 26, 2024 End: May 26, 2024 Team Status: Inactive Member Role Status Dates Madisyn Torres PA, PA Primary Care Provider Active Start: June 09, 2024 End: June 09, 2024 Madisyn Torres PA, PA Referring Provider Active Start: June 09, 2024 End: June 09, 2024 Dr. Leonela Montejo DO Attending Provider Activ e Start: June 09, 2024 End: June 09, 2024 Team Status: Inactive Member Role Status Dates Madisyn Torres PA, PA Primary Care Provider Active Start: June 14, 2024 End: June 14, 2024 Tova Prather CNM Attending Provider Active S tart: June 14, 2024 End: June 14, 2024 Tova Prather CNM Referring Provider Active S tart: June 14, 2024 End: June 14, 2024 Team Status: Active Member Role Status Dates Madisyn Torres PA, PA Primary Care Provider Active Start: June 14, 2024 Tova Prather CNM Attending Provider Active S tart: June 14, 2024 Tova Prather CNM Referring Provider Active S tart: June 14, 2024 Tova Prather CNM Other Provider Active Start : June 14, 2024 Team Status: Inactive Member Role Status Dates Madisyn Torres PA, PA Primary Care Provider Active Start: June 14, 2024 End: June 14, 2024 Dr. Benjamin Greenwood DO Emergency Provider Active Start: June 14, 2024 End: June 14, 2024 Team Status: Inactive Member Role Status Dates Madisyn Torres PA, PA Primary Care Provider Active Start: June 14, 2024 End: June 14, 2024 Dr. Benjamin Greenwood DO Attending Provider Active Start: June 14, 2024 End: June 14, 2024 Dr. Benjamin Greenwood DO Emergency Provider Active Start: June 14, 2024 End: June 14, 2024 Team Status: Inactive Member Role Status Dates Madisyn Torres PA, PA Primary Care Provider Active Start: June 15, 2024 End: June 15, 2024 Dr. Hugo Stiles DO Attending Provider Active Start: June 15, 2024 End: June 15, 2024 Dr. Hugo Stiles DO Emergency Provider Active Start: June 15, 2024 End: June 15, 2024 Team Status: Inactive Member Role Status Dates Madisyn Torres PA, PA Primary Care Provider Active Start: June 23, 2024 End: June 23, 2024 Madisyn Torres PA, PA Referring Provider Active Start: June 23, 2024 End: June 23, 2024 Tova Prather CNM Attending Provider Active S tart: June 23, 2024 End: June 23, 2024 Team Status: Inactive Member Role Status Dates Madisyn Torres PA, PA Primary Care Provider Active Start: July 01, 2024 End: July 01, 2024 Tova Prather CNM Attending Provider Active S tart: July 01, 2024 End: July 01, 2024 Tova Prather CNM Referring Provider Active S tart: July 01, 2024 End: July 01, 2024 Team Status: Inactive Member Role Status Dates Madisyn Torres PA, PA Primary Care Provider Active Start: July 07, 2024 End: July 07, 2024 Madisyn Torres PA, PA Referring Provider Active Start: July 07, 2024 End: July 07, 2024 Dr. Lali Bro MD Attending Provider Active Start: July 07, 2024 End: July 07, 2024 Team Status: Inactive Member Role Status Dates Madisyn Torres PA, PA Primary Care Provider Active Start: July 07, 2024 End: July 07, 2024 Dr. Lali Bro MD Attending Provider Active Start: July 07, 2024 End: July 07, 2024 Dr. Lali Bro MD Referring Provider Active Start: July 07, 2024 End: July 07, 2024 Team Status: Inactive Member Role Status Dates Madisyn Torres PA, PA Primary Care Provider Active Start: July 21, 2024 End: July 21, 2024 Madisyn Torres PA, PA Referring Provider Active Start: July 21, 2024 End: July 21, 2024 Tova Prather CNM Attending Provider Active S tart: July 21, 2024 End: July 21, 2024 Team Status: Inactive Member Role Status Dates Madisyn Torres PA, PA Primary Care Provider Active Start: July 21, 2024 End: July 21, 2024 Tova Prather CNM Attending Provider Active S tart: July 21, 2024 End: July 21, 2024 Tova Prather CNM Referring Provider Active S tart: July 21, 2024 End: July 21, 2024 Team Status: Inactive Member Role Status Dates Madisyn Torres PA, PA Primary Care Provider Active Start: July 29, 2024 End: July 29, 2024 Madisyn Torres PA, PA Referring Provider Active Start: July 29, 2024 End: July 29, 2024 Tova Prather CNM Attending Provider Active S tart: July 29, 2024 End: July 29, 2024 Team Status: Inactive Member Role Status Dates BOB Miller Primary Care Provider Active Start: August 05, 2024 End: August 05, 2024 BOB Miller Referring Provider Active Start: August 05, 2024 End: August 05, 2024 Dr. Leonela Montejo DO Attending Provider Activ e Start: August 05, 2024 End: August 05, 2024 Scheduled Active and Recently Administ ered Medications (unrecognized section and content) Medication Order 06/15/2024 06/16/2024 06/17/2024 acetaminophen (Tylenol) tablet 650 mg 650 mg, Oral, Every 6 hours, First dose (after last modification) on Sat06/16/24 at 0330, Maximum dose of acetaminophen is 4000 mg from all sources in 24 hours. 0330 (Not Given - Provider: Gricelda Matamoros RN - Reason: Other)0957 (Given - Provider: Gricelda Matamoros, CARRI)1544 (Given - Provider: Gricelda Matamoros, CARRI)2130 (Not Given - Provider: Maribel Watkins RN - Reason: Patient/family refused - Comment: Pt declined at this time, wanted oxy only instead of tylenol) 0608 (Given - Provider: Maribel Watkins RN)1137 (Given - Provider: Gricelda Matamoros, CARRI) betamethasone acetate-betamethasone sodium phosphate (Celestone) injection 12 mg (COMPLETED) 12 mg, IntraMUSCular, Every 24 hours, First dose on Sat06/16/24 at 0100, For 2 doses 0123 (Given - Provider: Maribel Watkins RN)0247 (MAR Hold - Provider: Automatic Transfer Provider - Reason: Patient not available)0532 (MAR Unhold - Provider: Automatic Transfer Provider) 0053 (Given - Provider: Maribel Watkins RN) enoxaparin (Lovenox) syringe 40 mg 40 mg, SubCUTAneous, Every 12 hours scheduled (2 times per day), First dose (after last reorder) on Sat06/16/24 at 2100, Indication of Use: Prophylaxis-DVT/PE, Indications: Prophylaxis of Venous Thromboembolism 2125 (Given - Provider: Maribel Watkins RN) 0851 (Given - Provider: Gricelda Matamoros, CARRI) heparin injection 5,000 Units (COMPLETED) 5,000 Units, SubCUTAneous, Once, On Sat06/16/24 at 0615, For 1 dose, Phase II/On Unit 0630 (Given - Provider: Viridiana May, CARRI) lactated ringers bolus 500 mL (COMPLETED) 500 mL, IntraVENous, at 250 mL/hr, Administer over 2 Hours, Once, On Sat06/16/24 at 0530, For 1 dose 0533 (New Bag - Provider: Viridiana May, RN)0733 (Stopped - Provider: Gricelda Matamoros, CARRI) morphine injection 4 mg (COMPLETED) 4 mg, IntraVENous, Once, On Sat06/16/24 at 0115, For 1 dose, If oral and IV narcotics ordered, use oral first and only use IV if oral is ineffective or cannot take oral. Do Not give oral and IV within 1 hour of each other unless specifically ordered. 0122 (Given - Provider: Maribel Watkins RN) NIFEdipine (Procardia) capsule 10 mg 10 mg, Oral, Every 6 hours scheduled (4 times per day), First dose on Sat06/16/24 at 1000, For 48 hours 0957 (Given - Provider: Gricelda Matamoros, CARRI)1804 (Given - Provider: Gricelda Matamoros, CARRI) 0053 (Given - Provider: Maribel Watkins RN)0609 (Given - Provider: Maribel Watkins RN)1200 (Not Given - Provider: Gricelda Matamoros RN - Reason: Other) NIFEdipine (Procardia) capsule 10 mg (COMPLETED) 10 mg, Oral, Every 10 min, First dose (after last modification) on Sat06/16/24 at 0430, For 3 doses 0436 (Self Administered Via Pump - Provider: Andie Kim RN)0446 (Given - Provider: Andie Kim, CARRI)0456 (Given - Provider: Andie Kim, CARRI) piperacillin-tazobactam (Zosyn) 4,500 mg in sodium chloride 0.9 % 100 mL IVPB Mini-Bag Plus (CANCELED) 4,500 mg, IntraVENous, at 200 mL/hr, Administer over 0.5 Hours, Every 6 hours, First dose on Sat06/16/24 at 0200, Mini-Bag Plus bag, Suspected Indication (Select all that apply): Intra-Abdominal Infection 0200 (New Bag - Provider: Maribel Watkins RN)0230 (Stopped - Provider: Gricelda Matamoros RN)0247 (APR Hold - Provider: Automatic Transfer Provider - Reason: Patient not available)0532 (APR Unhold - Provider: Automatic Transfer Provider)0958 (New Bag - Provider: Gricelda Matamoros RN)1028 (Stopped - Provider: Gricelda Matamoros RN) vitamin tablet 1 tablet, Oral, Daily, First dose on Sat06/16/24 at 0900 0247 ([facility] Hold - Provider: Automatic Transfer Provider - Reason: Patient not available)0532 ([facility] Unhold - Provider: Automatic Transfer Provider)0957 (Given - Provider: Gricelda Matamoros RN) 0851 (Given - Provider: Gricelda Matamoros RN) sodium chloride 0.9% (NS) flush 10 mL 10 mL, IntraVENous, Every 12 hours scheduled (2 times per day), First dose on Sat06/16/24 at 0900 0247 ([facility] Hold - Provider: Automatic Transfer Provider - Reason: Patient not available)0532 ([facility] Unhold - Provider: Automatic Transfer Provider)0900 (Given - Provider: Gricelda Matamoros RN)2127 (Given - Provider: Maribel Watkins RN) 0851 (Given - Provider: Gricelda Matamoros RN) Continuous Medication Order 06/15/2024 06/16/2024 06/17/2024 lactated Ringer's infusion (CANCELED) 125 mL/hr, IntraVENous, Continuous, Starting on Sat06/16/24 at 0130 0147 (New Bag - Provider: Dao Watkins RN) PRN Medication Order 06/15/2024 06/16/2024 06/17/2024 HYDROmorphone (Dilaudid) injection 0.25 mg (CANCELED) 0.25 mg, IntraVENous, Every 5 min PRN, moderate pain (4-6), Starting on Sat06/16/24 at 0352, For 4 doses, Recovery (only), Phase I and Phase II- Initial therapy for moderate pain (4-6). Restricted to a 90 minute time frame starting when the patient can verbally state their pain score. If after 2 doses the pain score does not decrease by more than one point, then call the provider. If oral meds are utilized, do not return to initial therapy medications. 0426 (Given - Provider: Mayra Kim RN) morphine injection 2 mg(Linked Group 1) 2 mg, IntraVENous, Every 4 hours PRN, moderate pain (4-6), Starting on Sat06/16/24 at 0309, If oral and IV narcotics ordered, use oral first and only use IV if oral is ineffective or cannot take oral. Do Not give oral and IV within 1 hour of each other unless specifically ordered. morphine injection 4 mg(Linked Group 1) 4 mg, IntraVENous, Every 4 hours PRN, severe pain (7-10), Starting on Sat06/16/24 at 0309, If oral and IV narcotics ordered, use oral first and only use IV if oral is ineffective or cannot take oral. Do Not give oral and IV within 1 hour of each other unless specifically ordered. naloxone (Narcan) injection 0.4 mg 0.4 mg, IntraVENous, Every 5 min PRN, opioid reversal, respiratory depression, Starting on Sat06/16/24 at 0116, +++ For RR <10, pinpoint pupils, over sedation for opioid reversal - MUST notify filling station laborer provider immediately after first dose, may give IM or SQ if no IV access +++ 0247 (MAR Hold - Provider: Automatic Transfer Provider - Reason: Patient not available)0532 (MAR Unhold - Provider: Automatic Transfer Provider) naloxone (Narcan) injection 0.4 mg 0.4 mg, IntraVENous, As needed, opioid reversal, pinpoint pupils, Starting on Sat06/16/24 at 0309, administer IV PRN for oversedation, RR LESS than 10 ondansetron (Zofran) injection 4 mg(Linked Group 2) 4 mg, IntraVENous, Every 6 hours PRN, nausea, vomiting, Starting on Sat06/16/24 at 0114, 1st Line. Give IV if patient is unable to take orally. If inadequate response within 60 minutes, proceed to next-line agent or contact provider if no further options ordered. 0247 (MAR Hold - Provider: Automatic Transfer Provider - Reason: Patient not available)0532 ([facility] Unhold - Provider: Automatic Transfer Provider) ondansetron (Zofran) injection 4 mg (COMPLETED) 4 mg, IntraVENous, Once PRN, nausea, Starting on Sat06/16/24 at 0352, For 1 dose, Recovery (only), Initial antiemetic therapy. 0426 (Given - Provider: Mayra Kim, CARRI) ondansetron ODT (Zofran-ODT) disintegrating tablet 4 mg(Linked Group 2) 4 mg, Oral, Every 8 hours PRN, nausea, vomiting, Starting on Sat06/16/24 at 0114, 1st Line. If inadequate response within 60 minutes, proceed to next-line agent or contact provider if no further options ordered. Patient should allow tablet to dissolve on tongue. Do not remove from blister pack until just before administering. 0247 ([facility] Hold - Provider: Automatic Transfer Provider - Reason: Patient not available)0532 ([facility] Unhold - Provider: Automatic Transfer Provider) oxyCODONE (Roxicodone) immediate release tablet 10 mg(Linked Group 3) 10 mg, Oral, Every 4 hours PRN, severe pain (7-10), Starting on Sat06/16/24 at 0309 0600 (See Alternative - Provider: Viridiana May RN)2125 (See Alternative - Provider: Maribel Watkins, CARRI) oxyCODONE (Roxicodone) immediate release tablet 5 mg 5 mg, Oral, Every 4 hours PRN, severe pain (7-10), Starting on Sat06/16/24 at 0115 0247 ([facility] Hold - Provider: Automatic Transfer Provider - Reason: Patient not available)0532 ([facility] Unhold - Provider: Automatic Transfer Provider) oxyCODONE (Roxicodone) immediate release tablet 5 mg(Linked Group 3) 5 mg, Oral, Every 4 hours PRN, moderate pain (4-6), Starting on Sat06/16/24 at 0309 0600 (Given - Provider: Viridiana May, CARRI)2125 (Given - Provider: Maribel Watkins, CARRI) polyethylene glycol (PEG) 3350 (Miralax) packet 17 g 17 g, Oral, Daily PRN, constipation, Starting on Sat06/16/24 at 0309, 1st line for treatment of constipation - give scheduled if no bowel movement in past 24 hours. simethicone (Mylicon) chewable tablet 80 mg 80 mg, Oral, Every 6 hours PRN, flatulence, Starting on Sat06/16/24 at 0309 sodium chloride 0.9 % infusion 5-250 mL/hr, IntraVENous, PRN, if patient receiving piggyback infusions and maintenance fluids are not ordered OR KVO fluids to protect IV site / prevent frequent line interruptions/ long duration, Starting on Sat06/16/24 at 0114, For piggyback infusion, administer at same rate as piggyback for a total of 25 mL. Enter 25 mL into dose field and piggyback rate into rate field of order. If piggyback is infusing at a rate less than 100 mL/hr, enter 25 mL into dose field and 100 mL/hr into rate field of order. For KVO fluids, enter rate of 20 mL/hr or less into rate field of order. 0247 ([facility] Hold - Provider: Automatic Transfer Provider - Reason: Patient not available)0532 ([facility] Unhold - Provider: Automatic Transfer Provider) sodium chloride 0.9% (NS) flush 10 mL 10 mL, IntraVENous, PRN, line care, Starting on Sat06/16/24 at 0114, After every IV line use 0124 (Given - Provider: Maribel Watkins RN)0247 ([facility] Hold - Provider: Automatic Transfer Provider - Reason: Patient not available)0532 ([facility] Unhold - Provider: Automatic Transfer Provider) sterile water irrigation solution (CANCELED) As needed, Starting on Sat06/16/24 at 0307, Intraprocedure 0307 (Given - Provider: Satish Farley MD - Comment: scope warmer) Linked Groups Order Group 1: morphine injection 2 mgJump to med 2 mg, IntraVENous, Every 4 hours PRN, moderate pain (4-6), Starting on Sat06/16/24 at 0309, If oral and IV narcotics ordered, use oral first and only use IV if oral is ineffective or cannot take oral. Do Not give oral and IV within 1 hour of each other unless specifically ordered. Or morphine injection 4 mgJump to med 4 mg, IntraVENous, Every 4 hours PRN, severe pain (7-10), Starting on Sat06/16/24 at 0309, If oral and IV narcotics ordered, use oral first and only use IV if oral is ineffective or cannot take oral. Do Not give oral and IV within 1 hour of each other unless specifically ordered. Group 2: ondansetron ODT (Zofran-ODT) disintegrating tablet 4 mgJump to med 4 mg, Oral, Every 8 hours PRN, nausea, vomiting, Starting on Sat06/16/24 at 0114, 1st Line. If inadequate response within 60 minutes, proceed to next-line agent or contact provider if no further options ordered. Patient should allow tablet to dissolve on tongue. Do not remove from blister pack until just before administering. Or ondansetron (Zofran) injection 4 mgJump to med 4 mg, IntraVENous, Every 6 hours PRN, nausea, vomiting, Starting on Sat06/16/24 at 0114, 1st Line. Give IV if patient is unable to take orally. If inadequate response within 60 minutes, proceed to next-line agent or contact provider if no further options ordered. Group 3: oxyCODONE (Roxicodone) immediate release tablet 5 mgJump to med 5 mg, Oral, Every 4 hours PRN, moderate pain (4-6), Starting on Sat06/16/24 at 0309 Or oxyCODONE (Roxicodone) immediate release tablet 10 mgJump to med 10 mg, Oral, Every 4 hours PRN, severe pain (7-10), Starting on Sat06/16/24 at 0309 FOR RECORDS PERTAINING TO PATIENTS WHO ARE OR HAVE BEEN ENROLLED IN A CHEMICAL DEPENDENCY/SUBSTANCEABUSE PROGRAM, SOME INFORMATION MAY BE OMITTED. This clinical summary was aggregated from multiple sources. Caution should be exercised in using it in the provision of clinical care. This summary normalizes information from multiple sources, and as a consequence, information in this document may materially change the coding, format and clinical context of patient data. In addition, data may be omitted in some cases. CLINICAL DECISIONS SHOULD BE BASED ON THE PRIMARY CLINICAL RECORDS. [facility]. provides no warranty or guarantee of the accuracy or completeness of information in this document.
[2024-08-10 01:57] LABS: ROM Internal Control Test YES-OK TO RESULT pt. (Internal QC); ROM Patient Test Negative (Negative); Record Kit Lot#, ROM+ K3358
[2024-08-10 03:55] LABS: Color, Urine Straw (Yellow); Glucose, Dipstick Normal (Normal); Ketone-Dipstick Negative (Negative); Leukocyte Esterase-Dipstick Negative /ul (Negative); Nitrite-Dipstick Negative (Negative); Occult Blood-Urine Negative /ul (Negative); Protein-Dipstick Negative (Negative); Urine Bilirubin Dipstick Negative (Negative); Urine Clarity Clear (Clear); Urine Urobilinogen Normal (Normal)
[2024-08-10 05:34] LABS: ROM Internal Control Test YES-OK TO RESULT pt. (Internal QC); ROM Patient Test Negative (Negative)
[2024-08-10 05:35] LABS: Record Kit Lot#, ROM+ K3358
[2024-08-10 15:00] LABS: ROM Internal Control Test YES-OK TO RESULT pt. (Internal QC); ROM Patient Test Negative (Negative); Record Kit Lot#, ROM+ K3358
--- NOTE | 2024-08-10 15:07 | US_ITS ---
PROCEDURE: OB LIMITED (NO BIOMETRICS) 08/10/2024 REASON FOR EXAM: DENISE ONLY TECHNIQUE: OB LIMITED (NO BIOMETRICS) COMPARISON: Ob ultrasound March 24, 2024 FINDINGS Number: 1 Position: Cephalic BIOPHYSICAL ASSESSMENT: Amniotic Fluid Volume: 7.4 cm largest vertical pocket. Amniotic Fluid Index: 14.2 cm (8-24 cm normal range) US/OB Limited (No Biometrics) IMPRESSION: DENISE in normal range. age by LMP: 39 weeks, 5 days with estimated due date of 08/12/2024 [facility]
--- NOTE | 2024-08-10 16:12 | HP.PCM.OB_ITS ---
HPI - General General Date of Admission: 08/10/24 Date of Service: 08/10/24 HPI Narrative JAI HARRIS, is a 28 F 39.5 weeks gestation who presents to unit for vaginal discharge. Rom was negative and DENISE is 14. Patient did make cervical change from 1cm to 3.5 cm. admitted for active labor. Maternal Data Information MAURICIO Calculator Estimated Delivery Date Method Current WG Current Estimate 08/12/24 LMP (Certain) 39w 5d Other Estimates 08/11/24 Ultrasound #1 39w 6d Final MAURICIO: 08/10/24 Final MAURICIO Source: US >20 weeks Gestational age: 39.5 weeks PFSH PFS Medical History Vaginal delivery Acute otitis media, left Acute frontal sinusitis, unspecified Non-smoker Pneumonia Home Medications ?Medication ?Instructions ?Recorded ?Last Taken ?Type dlifqeol-hun-Qq-FA 1 mg 1 tab PO DAILY supple ment 06/16/22 06/10/24 09:00 History tablet 1 TAB Allergy/AdvReac Type Severity Reaction Status Date / Time No Known Allergies Allergy Verified 08/10/24 01:29 Family History Brother Heart disease Marfan syndrome Aunt Pancreatic cancer Surgical History S/P appendectomy History of gynecologic surgery Social History adopted: No household members: spouse and children number of children: 1 current occupation: [employer] current occupational exposures/hazards: No pets and animals: Yes history of recent travel: No sexually active: Yes Smoking Status: Never smoker alcohol intake: current alcohol intake frequency: holidays/special occasions only details: Not while substance use type: does not use well-balanced diet: daily or most days caffeine: Yes Type: coffee eating out: rarely or never during the past year weight has: remained stable what type of physical activity do you participate in: weight training frequency: 3-4 times per week duration: 30-45 minutes/day roderick/yarsanism: Voodoo seatbelt use: always do you feel safe at home: Yes additional social history: : Adrien - [employer] History 2 Elective abortions Hx Para 1 Spontaneous abortions Hx # Term Pregnancies 1 Ectopic pregnancies Hx # Pregnancies Multiple births # of living children 1 Past Pregnancies Del. Date Name GA/Weeks Outcome Route Bth Weight Gen Labor Lgth Anesthesia Del Locatn Provider FOB 06/18/23 Bañuelos 40 live - full term 9lbs 2oz Male ep idural [facility] Dr Melissa Harris Adrien Delivery Date: 06/18/23 Last Updated by: Susan Somers RN no complications Visit Details Expected Delivery Route/Plan Labor Preferences- CB/BF classes: no labor support person: Adrien labor intervention preferences: [] pain management options preferred: epidural cut cord/dad catch: cord : yes PP control planned: discussed discussed possible routes of delivery and associated risks: [] special requests: [] Plans Covid status: [] Flu vaccine: [] Tdap vaccine: declines Rhogam: na LARC form signed: yes Problem list reviewed and updated with the most current plan of care details and appropriate orders placed. Relevant counseling for the gestational age provided. Continue routine care and follow up unless otherwise noted in visit notes/problem list details OB Flowsheet Initial Weight: Not Recorded Date -?-?-?-?-?-?-?-?-?-?-?-?- EGA Weight BP Urine Prot -?-?-?-?-?-?-?-?-?-?-?-?- Glucose FHR FuHt Pres Dilation -?-?-?-?-?-?-?-?-?-?-?-?- Effaced St Visit Note 01/06/24 -?-?-?-?-?-?-?-?-?-?-?-?- 8w 5d 157 lb 129/82 -?-?-?-?-?-?-?-?-?-?-?-?- 187 -?-?-?-?-?-?-?-?-?-?-?-?- JV- CRL consiste nt with LMP. patient very nauseated today so declines pap today. will do next visit. declines medication. taking unisom + B6. declines nipt. 02/04/24 -?-?-?-?-?-?-?-?-?-?-?-?- 12w 6d 159 lb 2 oz 122/81 Nega tive -?-?-?-?-?-?-?-?-?-?-?-?- Negative 150 -?-?-?-?-?-?-?-?-?-?-?-?- SM- no vb andrew marks, educated about varicella non immune, patient was last and declined immunization after. 03/02/24 -?-?-?-?-?-?-?-?-?-?-?-?- 16w 5d 160 lb 4 oz 122/80 Nega tive -?-?-?-?-?-?-?-?-?-?-?-?- Negative 164 -?-?-?-?-?-?-?-?-?-?-?-?- MH-No VB, LOF. N o flutters yet. Will get labs today. US scheduled 03/25/24 -?-?-?-?-?-?-?-?-?-?-?-?- 20w 0d 162 lb 112/70 Negative -?-?-?-?-?-?-?-?-?-?-?-?- Negative 148 -?-?-?-?-?-?-?-?-?-?-?-?- MH-NO VB, LOF. G ood FM. anatomy US yesterday/results pending 04/27/24 -?-?-?-?-?-?-?-?-?-?-?-?- 24w 5d 170 lb 127/82 Negative -?-?-?-?-?-?-?-?-?-?-?-?- Negative 155 25 -?-?-?-?-?-?-?-?-?-?-?-?- KW- no vb/lof/ct x. good fm. 28 week labs discussed 05/26/24 -?-?-?-?-?-?-?-?-?-?-?-?- 28w 6d 173 lb 2 oz 118/72 Nega tive -?-?-?-?-?-?-?-?-?-?-?-?- Negative 146 29 -?-?-?-?-?-?-?-?-?-?-?-?- MH-No VB, LOF. G ppd FM. 28 wk labs pending. Larc. Declines tdap 06/09/24 -?-?-?-?-?-?-?-?-?-?-?-?- 30w 6d 174 lb 121/77 Negative -?-?-?-?-?-?-?-?-?-?-?-?- Negative 140 30 -?-?-?-?-?-?-?-?-?-?-?-?- JV- no lof, vagi nal bleeding, or dec fm. normal glucola. hg 11.1. 06/23/24 -?-?-?-?-?-?-?-?-?-?-?-?- 32w 6d 167 lb 4 oz 119/80 Nega tive -?-?-?-?-?-?-?-?-?-?-?-?- Negative 145 31 -?-?-?-?-?-?-?-?-?-?-?-?- kw- no vb/lof/ct x. good fm. had appendicitis and had surgery last week. will get US scheduled for follow up placenta. 07/07/24 -?-?-?-?-?-?-?-?-?-?-?-?- 34w 6d 172 lb 8 oz 116/76 Nega tive -?-?-?-?-?-?-?-?-?-?-?-?- Negative 140 34 -?-?-?-?-?-?-?-?-?-?-?-?- SM- open incisio n in upper abdomen with white drainage after dermbond removed, no erythema or significant tenderness- reviewed precautions to watch and keflex ordered jjust in case 07/21/24 -?-?-?-?-?-?-?-?-?-?-?-?- 36w 6d 178 lb 6 oz 120/79 Nega tive -?-?-?-?-?-?-?-?-?-?-?-?- Negative 125 36 0.5 -?-?-?-?-?-?-?-?-?-?-?-?- -2 KW- no v b/lof/ctx. good fm. GBS today. no concerns. upper incision healing. 07/29/24 -?-?-?-?-?-?-?-?-?-?-?-?- 38w 0d 178 lb 8 oz 118/87 Nega tive -?-?-?-?-?-?-?-?-?-?-?-?- Negative 130 37 1.5 -?-?-?-?-?-?-?-?-?-?-?-?- 60 -2 KW- no vb/ lof/ctx. good fm. KW- no vb/lof/ctx. good fm. has follow up growth US scheduled for 08/0208/05/24 -?-?-?-?-?-?-?-?-?-?-?-?- 39w 0d 177 lb 8 oz 132/83 Nega tive -?-?-?-?-?-?-?-?-?-?-?-?- Negative 135 37.5 Cephalic 1 .5 -?-?-?-?-?-?-?-?-?-?-?-?- 60 -2 JV- pt moreno s not want to do a repeat us (for AC 97th%) and it is likely appropriate since is not measuring large. Membrane sweep today. NST FHR Rate Baby A Baseline: 135 Variability:: Moderate Accelerations:: 15 x 15 Decelerations:: None NST Reactive:: Yes FHR Category:: Category I Uterine Activity:: 3-4 cm ROS Constitutional Constitutional: Denies change in weight, fatigue, fever(s), headache(s), poor appetite or weakness Eyes Eyes: Denies blurry vision, change in vision, floaters, seeing flashes or spots in vision ENT HEENT: Denies dizziness, headache(s), loss taste/smell or sore throat Cardiovascular Cardiovascular: Denies chest pain, dizziness, dyspnea, irregular heart rhythm, lightheadedness, palpitations or rapid heart rate Respiratory/Chest Respiratory/Chest: Denies change in mental status, chest tightness, cough, dyspnea or breast pain Gastrointestinal Gastrointestinal: Denies anorexia, chewing difficulty, constipation, diarrhea or weight changes Genitourinary Genitourinary: Denies difficulty urinating, dysuria, flank pain, genital pain, urinary frequency or urinary urgency Musculoskeletal Musculoskeletal: Denies back pain, difficulty walking, extremity pain, joint pain, muscle cramps or muscle weakness Integumentary Integumentary: Denies lesions or unusual bruising Neurologic Neurologic: Denies abnormal movements, abnormal speech, dizziness, numbness, seizure-like activity, syncope or weakness Psychiatric Psychiatric: Denies behavioral changes, change in appetite, confusion, depression, homicidal ideation, suicidal ideation or suicidal thoughts Endocrine Endocrinology: Denies excessive sweating, polydipsia or polyuria Hematologic/Lymphatic Hematologic/Lymphatic: Denies anemia Allergic/Immunologic Allergic/Immunologic: Denies itchy eyes, lip swelling, throat swelling, tongue swelling or wheezing Vital Signs Vital Signs Vital Signs: 08/10/24 01:09 08/10/24 01:09 08/10/24 01:14 Pulse Rate 107 H 85 Blood Pressure BP Systolic BP Diastolic Pulse Ox 99 08/10/24 01:14 08/10/24 01:17 08/10/24 01:17 Pulse Rate 90 Blood Pressure 121/76 H BP Systolic 121 BP Diastolic 76 Pulse Ox 97 08/10/24 14:09 08/10/24 14:09 08/10/24 16:08 Pulse Rate 110 H Blood Pressure 134/86 H 136/85 H BP Systolic 134 136 BP Diastolic 86 85 Pulse Ox 08/10/24 16:08 Pulse Rate 93 Blood Pressure BP Systolic BP Diastolic Pulse Ox Weight Weight: 180 lb 3.2 oz Body Mass Index (BMI) 28.2 Physical Exam Const alert, oriented x3 and no apparent distress General Appearance: cooperative Orientation / Consciousness: awake HEENT normocephalic Neck full ROM Lymph Lymphatic: no lymphadenopathy noted Chest inspection of chest normal Resp normal respiratory effort and normal air movement Effort and Inspection: able to speak in complete sentences and symmetric chest movement GI soft to palpation and non-tender Inspection: gravid Palpation: soft; Negative for tender external exam normal Manual OB Exam: dilated 3.5, effaced 70 and station -2 Back/Spine normal to inspection Extremity normal to inspection and full ROM Skin no rashes or lesions noted Psych mental status grossly normal Appearance: grossly normal Speech: normal speech Labs Labs Labs: Blood Type O POSITIVE Antibody Screen NEGATIVE Hct 33.0 % (37-47) L Hgb 11.2 g/dL (12.0-15.0) L Obstetrics Ultrasound Syphilis Total Ab Nonreactive (Nonreactive) VZV IgG Antibody < 135 index (Immune >165) L Rubella IgG Antibody Reactive (Nonreactive) Hep Bs Antigen Non-Reactive (Nonreactive) Hepatitis C Antibody Non-Reactive (Nonreactive) Chlamydia DNA (RICHARD) Negative (Negative) N.gonorrhoeae DNA (RICHARD) Negative (Negative) HIV 1&2 Antibody Nonreactive (Nonreactive) Glucose 1 Hr 50 gm 112 mg/dL (70-140) Rhogam given: No Assessment & Plan (1) Active labor: PLAN: Patient presents IAL, plan expectant management for , pitocin/AROM PRN if needed. Pain management: plans epidural. GBS negative. Management of any complications: none I have reviewed the [facility] and made any clinically relevant updates. Dr Bob aware of assessment and plan. Agrees with admission. (2) History of appendicitis: COMMENT: 31 weeks (3) Family history of Marfan syndrome: COMMENT: Pt's brother...Pt has been tested and does NOT have (4) Supervision of normal : QUALIFIERS: Normal : other normal Trimester: third trimester Qualified Code(s): Z34.83 - Encounter for supervision of other normal , third trimester COMMENT: PRR, , MAURICIO 08/12/24, PC: Bañuelos, : Adrien (5) : QUALIFIERS: Weeks of gestation: 39 weeks Qualified Code(s): Z3A.3 9 - 39 weeks gestation of COMMENT: GBS neg, Discussed genetic/carrier testing AFP - declines, nl anatomy Charges/Coding Multi Select Codes Urinary/Genital Urinary/Genital CPT Codes: No Charge
[2024-08-10 16:57] LABS: Absolute Lymphocyte Count 2.06 X10^3/uL (0.83-4.51); Absolute Neutrophil Count 10.2 X10^3/uL (2.0-7.7); Basophil# 0.03 X10^3/uL; Basophil% 0.2 % (0-1); Eosinophil# 0.05 X10^3/uL; Eosinophils% 0.4 % (0-5); Hematocrit 32.4 % (37-47); Hemoglobin 10.9 g/dL (12.0-15.0); Lymphocyte # 2.06 X10^3/ul (0.83-4.51); Lymphocyte % 15.9 % (19-41); Mean Corp Hgb Conc 33.6 g/dL (32-36); Mean Corpuscular Hgb 28.8 pg (27.0-32.0); Mean Corpuscular Volume 85.7 fL (81-99); Mean Platelet Vol. 11.3 fl (6.2-12.0); Monocyte# 0.56 X10^3/uL; Monocyte% 4.3 % (0-10); NRBC Flagged by Analyzer 0 % (0-5); Neutrophil # 10.18 X10^3/uL (2.7-7.7); Neutrophil % 78.7 % (47-70); Platelet Count 192 K/mm3 (150-450); RBC Distribution Width CV 14.1 % (11.6-14.6); RBC Distribution Width SD 43.8 fl (35.1-43.9); Red Blood Count 3.78 M/mm3 (4.2-5.4); White Blood Count 12.9 K/mm3 (4.4-11.0)
[2024-08-10] MEDS: Lactated Ringers 1,000 ML 200 ML IV (17:00)
--- NOTE | 2024-08-10 17:15 | PN_ITS ---
Progress Note Coping well with contractions current tracing: FHT: 135 Moderate variability reactive no decelerations category I tracing [place]: 4-5 minute Contractions Membranes:AROM clear SVE:4/80/-2 A/P: Continue with position changes Titrate pitocin per protocol Epidural per anesthesia GBS neg Anticipate Dr Bob aware of above assessment and agrees with plan of care Assessment & Plan Assessment/Plan (1) Active labor: (2) History of appendicitis: (3) Family history of Marfan syndrome: (4) Supervision of normal : QUALIFIERS: Normal : other normal Trimester: third trimester Qualified Code(s): Z34.83 - Encounter for supervision of other normal , third trimester (5) : QUALIFIERS: Weeks of gestation: 39 weeks Qualified Code(s): Z3A.39 - 39 weeks gestation of Multi Select Codes Urinary/Genital Urinary/Genital CPT Codes: No Charge
[2024-08-10] MEDS: Lactated Ringers 1,000 ML 999 ML IV (17:30)
[2024-08-10 17:41] LABS: Syphilis Antibodies Nonreactive (Nonreactive)
[2024-08-10] MEDS: fentaNYL-bupivacaine (epidural) 100 ML BAG EPIDURAL (18:20)
--- NOTE | 2024-08-10 18:58 | PCM.PN.BLA ---
Progress Note comfortable with epidural current tracing: FHT: 145 Moderate variability reactive no decelerations category I tracing [place]: 4-6 minutes Contractions Membranes:remains clear SVE:unchanged A/P: Continue with position changes Start pitocin per protocol Epidural per anesthesia GBS neg Anticipate Dr Bob aware of above assessment and agrees with plan of care Assessment & Plan Assessment/Plan (1) Active labor: (2) History of appendicitis: (3) Family history of Marfan syndrome: (4) Supervision of normal : QUALIFIERS: Normal : other normal Trimester: third trimester Qualified Code(s): Z34.83 - Encounter for supervision of other normal , third trimester (5) : QUALIFIERS: Weeks of gestation: 39 weeks Qualified Code(s): Z3A.39 - 39 weeks gestation of Multi Select Codes Urinary/Genital Urinary/Genital CPT Codes: No Charge
[2024-08-10] MEDS: Oxytocin 15 Units/NS 250ml 15 UNITS/250 ML IV.SOLN 2 UNITS IV (19:22)
[2024-08-10] MEDS: Ondansetron 4 MG/2 ML Vial IV (20:42)
--- NOTE | 2024-08-10 21:17 | PN_ITS ---
Progress Note comfortable with epidural current tracing: FHT: 135 Moderate variability reactive no decelerations category I tracing [place]: 2-3 Contractions Membranes: remains clear SVE:6/80/-1 Pitocin: 6.0 mu A/P: Continue with position changes Titrate pitocin per protocol Epidural per anesthesia GBS neg Anticipate Dr Bob aware of above assessment and agrees with plan of care Assessment & Plan Assessment/Plan (1) Active labor: (2) History of appendicitis: (3) Family history of Marfan syndrome: (4) Supervision of normal : QUALIFIERS: Normal : other normal Trimester: third trimester Qualified Code(s): Z34.83 - Encounter for supervision of other normal , third trimester (5) : QUALIFIERS: Weeks of gestation: 39 weeks Qualified Code(s): Z3A.39 - 39 weeks gestation of Multi Select Codes Urinary/Genital Urinary/Genital CPT Codes: No Charge
--- NOTE | 2024-08-10 22:46 | EX.PCM.OBVAG ---
Assessment & Plan (1) Vaginal delivery: COMMENT: KW 39.5 IAL Emigdio Garay (2) Active labor: (3) History of appendicitis: COMMENT: 31 weeks (4) Family history of Marfan syndrome: COMMENT: Pt's brother...Pt has been tested and does NOT have (5) Supervision of normal : QUALIFIERS: Normal : other normal Trimester: third trimester Qualified Code(s): Z34.83 - Encounter for supervision of other normal , third trimester COMMENT: PRR, , MAURICIO 08/12/24, PC: Sarmad, : Adrien (6) : QUALIFIERS: Weeks of gestation: 39 weeks Qualified Code(s): Z3A.39 - 39 weeks gestation of COMMENT: GBS neg, Discussed genetic/carrier testing AFP - declines, nl anatomy Maternal Data Information MAURICIO Calculator Estimated Delivery Date Method Current WG Current Estimate 08/12/24 LMP (Certain) 39w 5d Other Estimates 08/11/24 Ultrasound #1 39w 6d Final MAURICIO: 08/12/24 Final MAURICIO Source: US >20 weeks Gestational age: 39.5 Vaginal Delivery Maternal Presentation Maternal Presentation: Active Labor Maternal Presentation: Presented to unit for active labor at 39.5 weeks Vaginal Delivery Information Procedure Performed: Spontaneous Vaginal Delivery Surgeon/Practitioner: Tova Prather Date of Procedure: 08/10/24 Pre-Procedure Diagnosis: see problem list Post-Procedure Diagnosis: same Type of anesthesia: Epidural Estimated Blood Loss: 200cc Time of Delivery: 22:29 Findings Description of procedure: Progressed well to 10cm dilated and made steady progress with effective maternal pushing. Delivered the head in JONATHAN presentation. The head was delivered atraumatically and a loose nuchal cord x4 was identified and was easily reduced over the 's head. The anterior and posterior shoulders delivered without complication followed by the rest of the and the was placed on the maternal abdomen. Delayed cord clamping was employed for approximately 3 minutes. Cord was clamped and cut and gentle traction was applied to the cord and the placenta delivered spontaneously. Immediately following, it was noted to be intact with a 3 vessel cord. Uterine bleeding stable. The perineum and vagina were inspected and noted to have no laceration. EBL was 200cc. Patient and tolerated delivery well. Apgars 8/9. Dr Bob notified of vaginal delivery and orders reviewed. Physician agrees with current plan of care. 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
--- NOTE | 2024-08-10 22:51 | DCINST_ITS ---
Discharge Instructions Diet Discharge Diet: No restrictions DC O2, CPAP, BIPAP needs Home O2 Discharge instructions: No Dressing / Incision Discharge Activity: Return to Normal Activity May resume sexual activity in: 6-8 weeks Dressing / Incision Call your doctor if you observe: Fever of 101 or Higher, Coldness, Increased Pain, Numbness or Tingling, Change in Color, Inability to urinate, Inability to have a bowel movement, Using more than 1 pad per hour, Shortness of breath, Dizziness, Fainting spells, Swelling in the ankles, Chest pain, Increased p alpitations (irregular heartbeat), Calf discomfort and Uncontrolled pain Follow Up Care Please Follow Up With: Tova Prather CNM When: Please call the office to schedule your follow up appointment in 6 weeks. If you had high blood pressure please call to schedule an appointment in 2 weeks. Test Results: Test results from this visit will be discussed in further detail at your follow- up appointment, if applicable. Discharge Plan Admission Admit Date/Time: 08/10/24 16:10 Attending Provider: Tova Prather Primary Care Provider: Madisyn Torres Instructions Patient Instructions: Kick Counts, ED False Labor, OB Triage: Return to Hospital or Notify Physician if you Experience: Additional Instructions / Restrictions: Follow up in the office. Discharge Orders/Prescriptions Prescriptions: No Action 1 mg Tablet 1 tab PO DAILY Referrals / Follow Up: Madisyn Torres PA [Primary Care Provider] -
[2024-08-10] MEDS: Oxytocin 15 Units/NS 250ml 15 UNITS/250 ML IV.SOLN 83 UNITS IV (23:10)
[2024-08-11] VITALS (23 sets, daily range): BP systolic 107–135; BP diastolic 55–82; PULSE 78–110; RESP 16; TEMP 36.5–37.3; O2SAT 95–98
[2024-08-11] MEDS: Ibuprofen 600 MG Tablet PO (09:01)
--- NOTE | 2024-08-11 14:40 | PN.OBGYN_ITS ---
Subjective Subjective Patient doing well without complaints. Tolerating PO. Ambulating and voiding without difficulty. Feeding well. Denies chest pain, shortness of breath, calf pain/swelling, fevers, chills, lightheadedness. Objective Data Objective Data Vital Signs: Vital Signs Temp Pulse Resp BP Pulse Ox O2 Del Method 98.6 F 95 16 121/82 H 97 Room Air 08/11/24 12:00 08/11/24 12:00 08/11/24 12:00 08/11/24 12:00 08/11/24 12:00 08/11/24 12:00 Oxygen Delivery Method Room Air Weight: 180 lb 3.2 oz Body Mass Index (BMI) 28.2 Intake & Output: Intake and Output for Last 24 Hours 08/09/24 08/10/24 08/11/24 23:59 23:59 23:59 Intake Total 2186.60 / 2186.60 250 / 250 Output Total 850 / 850 300 / 300 Balance 1336.60 / 1336.60 -50 / -50 Lab / Micro Data 08/10/24 16:40 Labs: Laboratory Results - last 24 hr 08/10/24 14:25: Vag Amniotic Fld Detect Negative 08/10/24 16:40: WBC 12.9 H, RBC 3.78 L, Hgb 10.9 L, Hct 32.4 L, MCV 85.7, MCH 28.8, MCHC 33.6, RDW Std Deviation 43.8, RDW Coeff of Po 14.1, Plt Count 192, MPV 11.3, Immature Gran % (Auto) 0.500, Neut % (Auto) 78.7 H, Lymph % (Auto) 15.9 L, [place] % (Auto) 4.3, Eos % (Auto) 0.4, Baso % (Auto) 0.2, Absolute Neuts (auto) 10.2 H, Absolute Lymphs (auto) 2.06, Nucleated RBC % 0, Syphilis Total Ab Nonreactive, Blood Type O POSITIVE, Antibody Screen NEGATIVE Radiography Diagnostic Testing: Radiology Impression Obstetrics Ultrasound 08/10/24 15:07 IMPRESSION: DENISE in normal range. age by LMP: 39 weeks, 5 days with estimated due date of 08/12/2024 Reading Location: [facility] Constitutional Constitutional: Denies chills, fatigue, fever(s), poor appetite or weakness Eyes Eyes: Denies blurry vision, change in vision, seeing flashes or spots in vision ENT HEENT: Denies dizziness, headache(s), loss taste/smell or sore throat Cardiovascular Cardiovascular: Denies chest pain, dizziness, dyspnea, irregular heart rhythm, palpitations or rapid heart rate Respiratory/Chest Respiratory/Chest: Denies chest tightness, cough, dyspnea or breast pain Gastrointestinal Gastrointestinal: Denies abdominal pain, constipation or vomiting Genitourinary Genitourinary: Denies dysuria or flank pain Musculoskeletal Musculoskeletal: Denies difficulty walking, joint pain, limited range of motion or numbness Neurologic Neurologic: Denies abnormal movements, abnormal speech, dizziness, numbness, seizure-like activity or syncope Psychiatric Psychiatric: Denies anxiety, behavioral changes, change in appetite, confusion, depression or suicidal thoughts Physical Exam Const alert, oriented x3 and no apparent distress General Appearance: cooperative and comfortable Resp normal respiratory effort Cardio regular rate GI normal to inspection, nondistended, normoactive bowel sounds GI Narrative: uterus is firm below umbilicus Palpation: soft Back/Spine no CVA tenderness and thoraco-lumbar ROM normal Extremity normal to inspection, no clubbing, cyanosis or edema, no calf tenderness and no pedal edema Psych mental status grossly normal, thought process normal, cooperative, affect normal, speech normal, activity/motor behavior normal, denies homicidal ideation and denies suicidal ideation Assessment & Plan (1) Vaginal delivery: COMMENT: KW 39.5 IAL Emigdio Hsusamuel PLAN: s/p PPD #1 1. routine post delivery care 2. breast feeding- support given 3. rh positive 4. rubella immune 5. wants to go home tonight if possible.
--- NOTE | 2024-08-14 13:07 | OB.TRI.HP_ITS ---
HPI - General General Date of Admission: 08/10/24 Date of Service: 08/10/24 Chief Complaint: r/o SROM HPI Narrative JAI MORGAN, is a 28 F who presents at 39.5 with questionable leaking of fluid. denies vb/ctx. good fm PFSH PFS Medical History (Updated 08/14/24 @ 13:08 by Aleshia Crowley CNM) Vaginal delivery Acute otitis media, left Acute frontal sinusitis, unspecified Non-smoker Pneumonia Medical History no medical history Home Medications ?Medication ?Instructions ?Recorded ?Last Taken ?Type [id number] 1 mg 1 tab PO DAILY supple ment 06/16/22 06/10/24 09:00 History tablet 1 TAB Allergy/AdvReac Type Severity Reaction Status Date / Time No Known Allergies Allergy Verified 08/10/24 16:30 Family History Brother Heart disease Marfan syndrome Aunt Pancreatic cancer Family History no significant family his Surgical History S/P appendectomy History of gynecologic surgery Surgical History no surgical history Social History adopted: No household members: spouse and children number of children: 1 current occupation: [employer] current occupational exposures/hazards: No pets and animals: Yes history of recent travel: No sexually active: Yes Smoking Status: Never smoker alcohol intake: current alcohol intake frequency: holidays/special occasions only details: Not while substance use type: does not use well-balanced diet: daily or most days caffeine: Yes Type: coffee eating out: rarely or never during the past year weight has: remained stable what type of physical activity do you participate in: weight training frequency: 3-4 times per week duration: 30-45 minutes/day roderick/tenriism: [employer] seatbelt use: always do you feel safe at home: Yes additional social history: : Adrien Peters History 2 Elective abortions Hx Para 1 Spontaneous abortions Hx # Term Pregnancies 2 Ectopic pregnancies Hx # Pregnancies Multiple births # of living children 2 Past Pregnancies Del. Date Name GA/Weeks Outcome Route Bth Weight Gen Labor Lgth Anesthesia Del Locatn Provider FOB 06/18/23 Sarmad 40 live - full term 9lbs 2oz Male ep idural [facility] Dr Melissa Jurado 08/10/24 Tanisha 39 live - full term Male epidur al [facility] PRERNA Jurado Delivery Date: 06/18/23 Last Updated by: Susan Somers RN no complications Delivery Date: 08/10/24 Last Updated by: Susan Somers RN See problem list for complications, and KW Boy IAL 39.5 NST FHR Rate Baby A Baseline: 130 Variability:: Moderate Accelerations:: 15 x 15 Decelerations:: None NST Reactive:: Yes FHR Category:: Category I Uterine Activity:: irregular Assessment & Plan (1) No leakage of amniotic fluid into vagina: COMMENT: rom plus negative, no evidence of rupture. cat 1 tracing safe for d/c home PLAN: Plan Patient presents for triage evaluation secondary to r/o ROM. negative rom. no evidence on glove of ROM per nursing. FHT: Moderate variability reactive no decelerations category I tracing [place]: irreg Contractions Assessment and plan: Reactive NST, reassuring maternal and status patient discharged to home to follow-up prn. See problem list details for additional plan information. Charges/Coding Procedures Urinary/Genital [id number]: [id number] non-stress test Interp
== END 2024-08-11 23:23 | disposition home or self-care (01) | DRG 807 ==
LOC: WPOUT 16:12 → WP 16:12
PROVIDERS: Registered Nurse; Admitting Provider Advanced Practice Midwife; PCP Physician Assistant; Referring Provider Advanced Practice Midwife; Visit Provider Advanced Practice Midwife
DX: O99.892 Other specified diseases and conditions complicating childbirth (principal); Z37.0 Single live birth; N89.8 Other specified noninflammatory disorders of vagina; O69.81X0 Labor and delivery complicated by cord around neck, without compression, not applicable or unspecified; Z3A.39 39 weeks gestation of pregnancy
CPT/HCPCS: 59025; 59050; 76815; 81002; 84112; 85025; 86780; 86850; 86900; 86901; 99221; G0378; J2405